=== PATIENT | female | born 1980 | race Caucasian/White ===

== ENCOUNTER 2021-03-19 14:08 | Outpatient (REF) | payer OTHER, SELFPAY | END 2021-03-19 14:09 | disposition home or self-care (01) | LOC: HO.LNP 14:08 | PROVIDERS: Visit Provider Hospitalist | DX: B34.9 Viral infection, unspecified (principal); Z20.822 Contact with and (suspected) exposure to COVID-19 | CPT/HCPCS: U0003; U0005 ==

== ENCOUNTER 2021-08-06 10:20 | Outpatient (REF) | payer OTHER, SELFPAY ==
[2021-08-06 11:08] LABS: MANUAL DIFF FLAG NO
[2021-08-06 11:21] LABS: Basophils Percent Auto 0.2 % (0-2); Eosinophils Absolute Auto 0.1 X10*3/uL (0.0-0.4); Eosinophils Percent Auto 2.3 % (0-4); Hematocrit 36.4 % (37.0-47.0); Hemoglobin 12.6 g/dl (12.0-16.0); Imm Gran Abs Auto 0.01 X10*3/uL (0.00-0.03); Imm Gran Pct Auto 0.2 % (0.0-0.4); Lymphocytes Absolute Auto 1.3 X10*3/uL (1.2-4.9); Lymphocytes Percent Auto 28.6 % (20-40); Mean Corpuscular HGB Conc 34.6 g/dl (31.0-35.0); Mean Corpuscular Hemoglobin 30.7 pg (27.0-33.0); Mean Corpuscular Volume 88.6 fL (80.0-98.0); Mean Platelet Volume 9.8 fL (9.4-12.3); Monocytes Absolute Auto 0.3 X10*3/uL (0.1-1.2); Monocytes Percent Auto 6.6 % (2-11); Neutrophils Absolute Auto 2.7 x10*3/uL (2.0-8.3); Neutrophils Percent Auto 62.1 % (45-73); Platelet Count 192 X10*3/uL (160-400); Red Blood Count 4.11 X10*6/uL (4.20-5.50); Red Cell Distribution Width 12.2 % (11.0-16.0); White Blood Count 4.4 X10*3/uL (4.8-10.8)
[2021-08-06 11:43] LABS: Alanine Aminotransferase 34 U/L (0-31); Anion Gap 11 (12-20); Aspartate Amino Transferase 27 U/L (5-31); Blood Urea Nitrogen 11 mg/dL (9-16); Calcium 9.9 mg/dL (8.4-10.2); Carbon Dioxide 28 mmol/L (22-29); Chloride 107 mmol/L (96-108); Cholesterol 134 mg/dL; Estimated Glomerular Filt Rate > 60; Glucose Fasting 100 mg/dL (60-99); HDL Cholesterol 69 mg/dL; LDL Cholesterol Calculated 44 mg/dl; Potassium 3.8 mmol/L (3.3-5.1); Sodium 142 mmol/L (135-145); Triglycerides 109 mg/dL
== END 2021-08-06 10:21 | disposition home or self-care (01) ==
LOC: HO.HMGCLDS 10:20
PROVIDERS: PCP Internal Medicine; Visit Provider Internal Medicine
DX: Z00.01 Encounter for general adult medical examination with abnormal findings (principal); I10 Essential (primary) hypertension; E78.5 Hyperlipidemia, unspecified; Z86.711 Personal history of pulmonary embolism
CPT/HCPCS: 36415; 80048; 80061; 84450; 84460; 85025

== ENCOUNTER 2021-09-01 15:12 | Outpatient (REF) | payer OTHER, SELFPAY | END 2021-09-01 15:13 | disposition home or self-care (01) | LOC: HO.LAB 15:12 | PROVIDERS: Visit Provider Hospitalist | DX: Z20.822 Contact with and (suspected) exposure to COVID-19 (principal); R68.83 Chills (without fever) | CPT/HCPCS: U0003; U0005 ==

== ENCOUNTER → 2021-10-27 14:31 | Outpatient (BNVA) | payer OTHER, SELFPAY | PROVIDERS: PCP Hospitalist; Visit Provider Surgery Vascular Surgery | DX: I83.11 Varicose veins of right lower extremity with inflammation (principal) | CPT/HCPCS: 99202 ==

== ENCOUNTER 2021-11-25 10:35 | Outpatient (REF) | payer OTHER, SELFPAY ==
--- NOTE | ~2021-11-25 | US_ITS ---
EXAMINATION: US LOWER EXTREMITY VENOUS (REFLUX EXAM), BILATERAL CLINICAL INDICATION: This is a 41-year-old female with venous insufficiency and varicose veins. COMPARISON: None. TECHNIQUE: Color flow triplex imaging and compression Doppler was performed to evaluate both the deep and the superficial systems bilaterally. To evaluate the superficial system, the examination was performed in the upright position. Color-flow Doppler ultrasound and compression ultrasound were utilized. In addition, maneuvers were utilized to demonstrate reflux. FINDINGS: 1. DEEP VENOUS ULTRASOUND OF THE RIGHT LOWER EXTREMITY: Common Femoral Vein: Compressible, normal respiratory variation and augmented flow. Femoral vein: There are chronic fibrinous changes with in the vein consistent with previous deep vein thrombosis and recanalization. There may be minimal reflux present. Popliteal Vein: There are chronic fibrinous changes with in the vein consistent with previous deep vein thrombosis and recanalization. There may be minimal reflux present. Deep Reflux: There are chronic fibrinous changes with in the femoral and popliteal veins consistent with previous deep vein thrombosis and recanalization. There may be minimal reflux present. There is no evidence of a Pino's cyst. 2. SUPERFICIAL ULTRASOUND WITH DOPPLER OF RIGHT LOWER EXTREMITY: GREAT SAPHENOUS VEIN: Saphenofemoral Junction: 0.8 cm. There is no reflux. Mid Thigh: 0.2 cm Above Knee: 0.2 cm Below Knee: 0.3 cm Mid Calf: 0.3 cm Ankle: 0.2 cm GSV REFLUX: No evidence of reflux. DUPLICATED GREAT SAPHENOUS VEIN: None SMALL SAPHENOUS VEIN: Proximal: 0.2 cm Distal: 0.2 cm SSV REFLUX: No evidence of reflux. VEIN OF GIACOMINI: None Imaged. PERFORATORS: None Imaged VARICOSITIES: There is a 0.3 cm varicose vein at the knee without reflux 3. DEEP VENOUS ULTRASOUND OF THE LEFT LOWER EXTREMITY: Common Femoral Vein: Compressible, normal respiratory variation and augmented flow. Femoral Vein: Compressible, normal color flow and augmentation. Popliteal Vein: Compressible, normal augmentation. Deep Reflux: There is no evidence of reflux in the deep system in either the common femoral vein or the popliteal vein. There is no evidence of a Pino's cyst. 4. SUPERFICIAL ULTRASOUND WITH DOPPLER OF LEFT LOWER EXTREMITY: GREAT SAPHENOUS VEIN: Saphenofemoral Junction: 0.9 cm. There is no reflux. Mid Thigh: 0.3 cm Above Knee: 0.3 cm Below Knee: 0.3 cm Mid Calf: 0.2 cm Ankle: 0.2 cm GSV REFLUX: No evidence of reflux. DUPLICATED GREAT SAPHENOUS VEIN: None SMALL SAPHENOUS VEIN: Proximal: 0.2 cm Distal: 0.2 cm SSV REFLUX: No evidence of reflux. VEIN OF GIACOMINI: None Imaged. PERFORATORS: None Imaged VARICOSITIES: None Imaged US/US venous duplex LE BI IMPRESSION: 1. There are patent bilateral great saphenous veins and small saphenous veins, respectively, without evidence of reflux. 2. There is some fibrinous changes in the right femoral vein and popliteal vein, respectively which may represent previous deep vein thrombosis.
== END 2021-11-25 10:36 | disposition home or self-care (01) ==
LOC: HO.US 10:35
PROVIDERS: Visit Provider Surgery Vascular Surgery
DX: I83.11 Varicose veins of right lower extremity with inflammation (principal)
CPT/HCPCS: 93970

== ENCOUNTER → 2021-12-29 14:50 | Outpatient (BNVA) | payer OTHER, SELFPAY | PROVIDERS: PCP Hospitalist; Visit Provider Surgery Vascular Surgery | DX: I83.11 Varicose veins of right lower extremity with inflammation (principal) | CPT/HCPCS: 99212 ==

== ENCOUNTER 2022-12-31 11:38 | Outpatient (REF) | payer OTHER, SELFPAY ==
[2022-12-31 14:19] LABS: Mean Corpuscular HGB Conc 34.2 g/dl (31.0-35.0); PLT CLUMP 1
[2022-12-31 14:21] LABS: Hematocrit 36.6 % (37.0-47.0); Hemoglobin 12.5 g/dl (12.0-16.0); Mean Platelet Volume 10.9 fL (9.4-12.3); Red Blood Count 4.16 X10*6/uL (4.20-5.50); Red Cell Distribution Width 12.1 % (11.0-16.0)
[2022-12-31 14:35] LABS: Platelet Count 122 X10*3/uL (160-400)
[2022-12-31 14:48] LABS: TSH reflex Free T4 1.45 uIU/mL (0.32-4.0)
[2022-12-31 14:54] LABS: Alanine Aminotransferase 25 U/L (0-31); Albumin Level 4.4 g/dL (3.5-5.0); Alkaline Phosphatase 19 U/L (39-117); Anion Gap 11 (12-20); Aspartate Amino Transferase 22 U/L (5-31); Blood Urea Nitrogen 16 mg/dL (9-16); Calcium 9.7 mg/dL (8.4-10.2); Carbon Dioxide 26 mmol/L (22-29); Chloride 108 mmol/L (96-108); Estimated Glomerular Filt Rate > 60; Glucose Fasting 55 mg/dL (60-99); Potassium 4.1 mmol/L (3.3-5.1); Sodium 141 mmol/L (135-145)
== END 2022-12-31 11:39 | disposition home or self-care (01) ==
LOC: HO.WFDLDS 11:38
PROVIDERS: Visit Provider Nurse Practitioner Family
DX: F41.9 Anxiety disorder, unspecified (principal)
CPT/HCPCS: 36415; 80053; 84443; 85027

== ENCOUNTER 2023-01-04 12:34 | Outpatient (REF) | payer OTHER, SELFPAY ==
[2023-01-04 14:16] LABS: Hematocrit 36.1 % (37.0-47.0); Hemoglobin 12.8 g/dl (12.0-16.0); Mean Corpuscular HGB Conc 35.5 g/dl (31.0-35.0); Mean Corpuscular Hemoglobin 30.9 pg (27.0-33.0); Mean Corpuscular Volume 87.2 fL (80.0-98.0); Mean Platelet Volume 10.3 fL (9.4-12.3); Platelet Count 171 X10*3/uL (160-400); Red Blood Count 4.14 X10*6/uL (4.20-5.50); Red Cell Distribution Width 11.9 % (11.0-16.0); White Blood Count 5.2 X10*3/uL (4.8-10.8)
[2023-01-04 14:43] LABS: Alkaline Phosphatase 21 U/L (39-117)
[2023-01-04 15:48] LABS: Vitamin B12 1447 pg/mL (200-900); Vitamin D 25-OH Total 48.2 ng/mL (>30)
== END 2023-01-04 12:35 | disposition home or self-care (01) ==
LOC: HO.WFDLDS 12:34
PROVIDERS: Visit Provider Nurse Practitioner Family
DX: D69.6 Thrombocytopenia, unspecified (principal); R74.8 Abnormal levels of other serum enzymes; E83.39 Other disorders of phosphorus metabolism
CPT/HCPCS: 36415; 82306; 82607; 84075; 85027

== ENCOUNTER 2023-02-16 15:49 | Outpatient (AMB) | payer OTHER, SELFPAY ==
[2023-02-16 16:00] VITALS: BP 124/68; PULSE 57; RESP 12; TEMP 36.2; O2SAT 99; BMI 20.4
--- NOTE | 2023-02-16 16:00 | MHC.PC.OV ---
Vital Signs 02/16/23 16:00 Height 5 ft 10 in Weight 142 lb 4 oz BMI 20.4 BP 124/68 Blood Pressure Location Rt brachial Position Sitting Respiration 12 Pulse 57 Pulse Source Pulse Oximeter Temp 97.2 F Temp Source Temporal Artery Scan Pulse Oximetry (%) 99 Oxygen Delivery Method Room Air Intake Visit Reasons: medication f/u, menstrual concern Intake Note: Patient would like a referral to Dermatology due patient having family history of skin cancer, and a referral to Ear, Nose, Throat due to her having because of mucus being built up ever since she moved here and started gathering in her throat to the point she had complications swallowing. Patient states that she was told that all her symptoms with her emotion, feelings, anxiousness and insomnia all pointed to PMDD. Phone Operator Required: No Accompanied by: Self / Same As Patient Allergies No Known Allergies Allergy (Verified 02/16/23 16:25) Medication List - Last Reconciled 02/16/23 by Magdaleno Sears CNP amlodipine 10 mg PO DAILY aspirin 81 mg PO DAILY atorvastatin 20 mg PO DAILY azelastine 1 spray intranasal BID metoprolol tartrate 25 mg PO BID Tobacco use date assessed: 12/24/22 Dental Screening Dental Screen Date: 02/16/23 Did you have a dental visit in the last 12 months?: No Did you have a dental problem in the last 6 months where you did not have access to dental care?: No Was dental information given to patient?: Yes HPI HPI Comments History of Present Illness Details 42-year-old female presents with complaints of continued anxiety and crying during her menstrual cycles. She reports associated insomnia. She was seen for similar complaints and was referred to gynecology. She was also instructed to exercise routinely. She notes she followed up with her director of events who referred her to a therapist. Her therapist thinks she has PMDD and would connect her to a psychiatrist. She sees her therapist weekly or biweekly. She requests as needed medications for anxiety. She notes that she drinking alcohol and smoking cigarette over a month and half ago. No acute symptoms today. She requests dermatology referral d/t family h/o skin cancer and ENT referral due to excessive mucus build up in her throat, making it difficult to swallow. [facility] Medical History Chronic seasonal allergic rhinitis Dyslipidemia Essential hypertension History of deep venous thrombosis (DVT) of distal vein of right lower extremity History of pulmonary embolus (PE) Numerous moles Peripheral vascular disease Peripheral vascular disease Postphlebitic leg ulcer Rash Surgical History History of hernia repair History of wisdom tooth extraction Hx of valvuloplasty Family History Father Hypertension Rheumatoid arthritis Mother Hypertension Diabetes Maternal Grandmother Hypertension Diabetes Mental health disorder Paternal Grandmother Mental health disorder Social History Housing: House Patient Tobacco Use Status: Former Tobacco user (4 years ) Years Smoked: 14 years e-Cigarette/Vaping Use: Former Use (here and there.) Second Hand Smoke Exposure: No service: No 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 1. Little interest or pleasure in doing things: not at all 2. Feeling down, depressed, or hopeless: not at all 3. Trouble falling or staying asleep, or sleeping too much: not at all 4. Feeling tired or having little energy: not at all 5. Poor appetite or overeating: not at all 6. Feeling bad about yourself - or that you are a failure or have let yourself or your family down: not at all 7. Trouble concentrating on things, such as reading the newspaper or watching television: not at all 8. Moving or speaking so slowly that other people could have noticed. Or the opposite - being so fidgety or restless that you have been moving around a lot more than usual: not at all 9. Thoughts that you would be better off or of hurting yourself in some way: not at all Total score: 0 Depression Screening Interpretation: Negative Source: Developed by Drs. Tee Aden, Perla Miranda, Haja Charles and colleagues, with an educational july from [employer]. Thrive Questionnaire Date Thrive assessed: 02/16/23 I am a: Patient What is your living situation today?: I have a steady place to live Within the past 12 months, did the food you bought not last and you didn't have the money to get more?: Never true Within the past 12 months, did you worry whether your food would run out before you got money to buy more?: Never true Do you have trouble paying for medicines?: No Do you have trouble getting transportation to medical appointments?: No Do you have trouble paying your heating and electricity bill?: No Do you have trouble taking care of your child, family member or friend?: No Do you have trouble with day-to-day activities such as bathing, preparing meals, shopping, managing finances, etc.?: No Are you currently unemployed and looking for a job?: No Are you interested in more education?: No Please select the resources that you would like help with: None Currently or been in a relationship where the following occur: no concerns reported MOOKIE-7 AMB Questionnaire MOOKIE-7 Date MOOKIE - 7 assessed: 02/16/23 Feeling nervous, anxious, or on edge: 1 = Several days Not being able to stop or control worryin = Not at all Worrying too much about different things: 0 = Not at all Trouble relaxin = Not at all Being so restless that it is hard to sit still: 0 = Not at all Becoming easily annoyed or irritable: 0 = Not at all Feeling afraid as if something awful might happen: 0 = Not at all Total MOOKIE-7 score (0-4 normal; 5-9 mild; 10-14 moderate; 15-21 severe): 1 Source: Developed by Drs. Tee Aden, Perla Miranda, Haja Charles and colleagues, with an educational july from [employer]. Review of Systems Const Details: Const Denies chills, Denies fatigue, Denies fever(s), Denies headache(s) and Denies weakness ENT Denies dizziness and Denies headache(s) Card Denies chest pain, Denies lightheadedness, Denies dyspnea and Denies other (Palpitations) Resp Denies cough, Denies dyspnea, Denies wheezing and Denies other ( shortness of breath) GI Denies abdominal pain, Denies melena, Denies hematochezia, Denies change in bowel habits, Denies dyspepsia and Denies nausea Denies hematuria and Denies dysuria Musc Denies abnormal gait, Denies myalgias, Denies arthralgias, Denies numbness and Denies tingling Skin/Breast Denies rash, Denies unusual bruising and Denies wounds Neuro Denies abnormal gait, Denies dizziness, Denies headache(s), Denies memory loss, Denies numbness, Denies Sensory deficit (Neuro), Denies tingling and Denies weakness Psych Denies anxiety and Denies depression, Denies memory loss Endo Denies fatigue Aller/Immun Denies wheezing Physical exam (Primary Care) Vital Signs: Last Vital Signs Temp 97.2 F 02/16/23 16:00 Pulse 57 02/16/23 16:00 Resp 12 02/16/23 16:00 BP 124/68 02/16/23 16:00 Pulse Ox 99 02/16/23 16:00 Oxygen Delivery Method Room Air 02/16/23 16:00 BMI result Body Mass Index 20.4 Tobacco/Smoking Status: Tobacco use Status Tobacco use date assessed 12/24/22 02/16/23 16:06 Patient Tobacco Use Status Former Tobacco user (4 years 02/16/23 16:06 ) e-Cigarette/Vaping Use Former Use (here and there.) 02/16/23 16:20 Depression Screening Interpretation: Negative Thrive Assessment: Date of Thrive Assessment Date Thrive assessed 02/16/23 02/16/23 16:20 Currently or been in a relationship where the following occur: no concerns reported Const Other: General: no acute distress and well developed Nutritional Appearance: well nourished Orientation/consciousness: patient oriented x3 HENMT Head: Yes normocephalic and Yes atraumatic Eyes General: appearance normal, both eyes and all related structures Pupils: Equal, round and reactive pupils present EOM: EOMs intact bilaterally Resp Effort & Inspection: normal respiratory effort Auscultation: clear to auscultation bilaterally Cardio Rate: regular rate Rhythm: regular rhythm Heart sounds: S1 normal heart sound present, S2 normal heart sound present, no gallops, no murmurs and no rubs GI Palpation (GI): No Abdominal aortic bruit present, Soft to palpation, nontender, No hepatosplenomegaly present and No Rebound tenderness present Auscultation: normal bowel sounds General: Yes no CVA tenderness Back/Spine/Pelvis Back: no CVA tenderness Cervical Spine: cervical ROM normal and No Cervical spine tenderness Thoracic/Lumbar Spine: thoraco-lumbar ROM normal, No pain with thoraco-lumbar ROM, No thoracic spinal tenderness and No lumbar spinal tenderness Extrem General: Yes normal to inspection, No edema and No calf tenderness Skin General: warm and dry. Normal skin color. Normal skin turgor Lesions: no lesions Rashes: no rashes Trauma: no lacerations or abrasions Wounds: no wounds Nails: normal Neuro General: patient oriented x3, gait normal and no focal neuro deficit Cranial nerves: Yes Equal, round and reactive pupils present Cognition (Neuro): normal cognition Gait exam (Neuro): Normal gait present Sensory Exam: No Sensory deficit (Neuro) Psych Appearance: grossly normal Affect: normal affect Attitude: cooperative Thought process: Normal thought process present Assessment and Plan Assessment & Plan (1) Anxiety: Code(s): F41.9 - Anxiety disorder, unspecified Plan: She notes that she sees a therapist weekly/biweekly and a therapist thinks she has PMDD; the plan is to get established with a psychiatrist. She requests an anxiolytic as needed PHQ-9 and MOOKIE-7 scores are normal Hydroxyzine ordered. Take as prescribed Healthy diet and routine exercise encouraged Continue to follow-up with therapist and gynecology as planned Follow-up with PCP in 2 months or return sooner with worsening or new symptoms Verbalized understanding and agreed with treatment plan. (2) Essential hypertension: Code(s): I10 - Essential (primary) hypertension Plan: Blood pressure is controlled, 124/68, within goal of less than 140/90 Continue to take amlodipine and metoprolol as prescribed Low-sodium diet encouraged Follow-up with PCP in 2 months or return sooner with symptoms or concerns Verbalized understanding and agreed with treatment plan. (3) Family history of skin cancer: Code(s): Z80.8 - Family history of malignant neoplasm of other organs or systems Plan: She requests dermatology referral d/t family h/o skin cancer and ENT referral due to excessive mucus build up in her throat, making it difficult to swallow. Referred to dermatology and ENT Follow-up with symptoms or concerns Verbalized understanding and agreed with treatment plan. (4) Dysphagia: Code(s): R13.10 - Dysphagia, unspecified Plan: As above Orders: Referrals Dermatology Referral Z80.8 - Family history of malignant neoplasm of other organs or systems Ear/Nose/Throat Referral R13.10 - Dysphagia, unspecified Medications: New hydroxyzine HCl 25 mg PO BID PRN 60 tabs 1RF anxiety 30 days Coding Level of Care Code Est Pt Level 3 (82808) Diagnoses Anxiety F41.9 Essential hypertension I10 Family history of skin cancer Z80.8 Dysphagia R13.10 Time Spent (min) 25
== END 2023-02-16 16:52 | disposition home or self-care (01) ==
PROVIDERS: PCP Hospitalist; Visit Provider Nurse Practitioner Family
DX: F41.9 Anxiety disorder, unspecified (principal); I10 Essential (primary) hypertension; Z80.8 Family history of malignant neoplasm of other organs or systems; R13.10 Dysphagia, unspecified
CPT/HCPCS: 99213

== ENCOUNTER 2024-01-18 15:30 | Outpatient (AMB) | payer OTHER, SELFPAY ==
--- NOTE | 2024-01-18 15:49 | A.OFFPC_ITS ---
Vital Signs 01/18/24 15:57 Weight 168 lb 8 oz BP 120/70 Blood Pressure Location Lt brachial Position Sitting Pulse 64 Pulse Source Pulse Oximeter Temp 98.6 F Temp Source Oral Pulse Oximetry (%) 986 H Oxygen Delivery Method Room Air Intake Visit Reasons: Establish Care Intake Note: patient here for follow up. Heating Engineer Required: No Is last menstrual period known: Yes Last menstrual period: 12/31/23 Allergies No Known Allergies Allergy (Verified 01/18/24 15:56) Medication List - Last Reconciled 01/18/24 by Gaby Callaway PA-C amlodipine 10 mg PO DAILY aspirin 81 mg PO DAILY atorvastatin 20 mg PO DAILY azelastine 1 spray intranasal BID hydroxyzine HCl 25 mg PO BID PRN 30 days metoprolol tartrate 25 mg PO BID Tobacco use date assessed: 12/24/22 Dental Screening Dental Screen Date: 02/16/23 HPI Establish Care HPI Details Patient is a 43-year-old female with a significant past medical of hyperlipidemia, hypertension, hx of right dvt and anxiety presenting today to transfer care internally and discuss her anxiety. CV: Blood pressure today in the office is 120/70. She is on amlodipine 10 mg and metoprolol 25 mg twice a day. She does not take her metoprolol frequently or in the evening. Her cholesterol is controlled with atorvastatin 20 mg. She has had high blood pressure for at least 10 years. Vasc: hx of the right leg dvt after an injury in 2014. 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 She states she did have a full workup from hematology. No need for anticoagulation. Psych: Well managed with hydroxyzine prn. Uses it rarely. 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[employer] [facility] Medical History (Updated 01/18/24 @ 16:18 by Gaby Callaway PA-C) Anxiety Low serum alkaline phosphatase Thrombocytopenia Peripheral vascular disease Peripheral vascular disease Chronic seasonal allergic rhinitis Numerous moles Rash History of pulmonary embolus (PE) Postphlebitic leg ulcer History of deep venous thrombosis (DVT) of distal vein of right lower extremity Dyslipidemia Essential hypertension Surgical History History of hernia repair History of wisdom tooth extraction Hx of valvuloplasty Family History Father Hypertension Rheumatoid arthritis Mother Hypertension Diabetes Maternal Grandmother Hypertension Diabetes Mental health disorder Paternal Grandmother Mental health disorder Social History Housing: House Patient Tobacco Use Status: Former Tobacco user (4 years ) Years Smoked: 14 years e-Cigarette/Vaping Use: Former Use (here and there.) Second Hand Smoke Exposure: No service: No 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 1. Little interest or pleasure in doing things: not at all 2. Feeling down, depressed, or hopeless: not at all 3. Trouble falling or staying asleep, or sleeping too much: not at all 4. Feeling tired or having little energy: not at all 5. Poor appetite or overeating: not at all 6. Feeling bad about yourself - or that you are a failure or have let yourself or your family down: not at all 7. Trouble concentrating on things, such as reading the newspaper or watching television: not at all 8. Moving or speaking so slowly that other people could have noticed. Or the opposite - being so fidgety or restless that you have been moving around a lot more than usual: not at all 9. Thoughts that you would be better off or of hurting yourself in some way: not at all Total score: 0 Depression Screening Interpretation: Negative Depression Screening Done: Yes 55655 - PHQ-9 Billing: Yes Source: Developed by Drs. Tee Aden, Perla Miranda, Haja Charles and colleagues, with an educational july from [employer]. Thrive Questionnaire Date Thrive assessed: 02/16/23 MOOKIE-7 AMB Questionnaire MOOKIE-7 Date MOOKIE - 7 assessed: 02/16/23 Feeling nervous, anxious, or on edge: 0 = Not at all Not being able to stop or control worryin = Not at all Worrying too much about different things: 0 = Not at all Trouble relaxin = Not at all Being so restless that it is hard to sit still: 0 = Not at all Becoming easily annoyed or irritable: 0 = Not at all Feeling afraid as if something awful might happen: 0 = Not at all Total MOOKIE-7 score (0-4 normal; 5-9 mild; 10-14 moderate; 15-21 severe): 0 Source: Developed by Drs. Tee Aden, Perla Miranda, Haja Charles and colleagues, with an educational july from [employer]. MOOKIE-7 Assessment Billing MOOKIE-7 Assessment Tool: MOOKIE-7 Assessment [id number] Physical exam (Primary Care) Vital Signs: Last Vital Signs Temp 98.6 F 01/18/24 15:57 Pulse 64 01/18/24 15:57 BP 120/70 01/18/24 15:57 Pulse Ox 986 H 01/18/24 15:57 Oxygen Delivery Method Room Air 01/18/24 15:57 Tobacco/Smoking Status: Tobacco use Status Tobacco use date assessed 12/24/22 01/18/24 15:51 Patient Tobacco Use Status Former Tobacco user (4 years 01/18/24 15:51 ) e-Cigarette/Vaping Use Former Use (here and there.) 01/18/24 15:51 PHQ-9: PHQ-9 Score PHQ-9: Total score 0 01/18/24 16:03 Depression Screening Interpretation: Negative Thrive Assessment: Date of Thrive Assessment Date Thrive assessed 02/16/23 01/18/24 15:51 Const Orientation/consciousness: patient oriented x3 HENMT Ears: hearing grossly normal bilaterally Neck Thyroid: Thyroid normal Lymphatic: no lymphadenopathy noted Resp Auscultation: clear to auscultation bilaterally Cardio Rate: regular rate Rhythm: regular rhythm Heart sounds: S1 normal heart sound present and S2 normal heart sound present GI Inspection: Yes normal to inspection Palpation (GI): Soft to palpation and Other GI palpation findings present (nontender, no cva tenderness) Auscultation: normoactive bowel sounds Rectal Exam - Female: deferred Skin General skin exam: no rashes or lesions noted Neuro General: patient oriented x3, gait normal and no focal motor deficits Assessment and Plan Assessment & Plan (1) Essential hypertension: Code(s): I10 - Essential (primary) hypertension Plan: will d/c metoprolol. will monitor bps at home and continue norvasc 10 mg. follow up in 4-6 months or sooner prn (2) Dyslipidemia: Code(s): E78.5 - Hyperlipidemia, unspecified Plan: continue lipitor. lipids and lfts ordered (3) Peripheral vascular disease: Comment: Status post stent to right common iliac vein Code(s): I73.9 - Peripheral vascular disease, unspecified Plan: has followed with Dr. Champion and recommendation of continued compression (4) Varicose veins of right lower extremity with inflammation: Code(s): I83.11 - Varicose veins of right lower extremity with inflammation Plan: compression stocking ordered (5) Generalized anxiety disorder with panic attacks: Code(s): F41.1 - Generalized anxiety disorder; F41.0 - Panic disorder [episodic paroxysmal anxiety] Plan: well controlled Orders: Orders Lipid Panel Today E78.5 - Hyperlipidemia, unspecified, F41.0 - Panic disorder [episodic paroxysmal anxiety], F41.1 - Generalized anxiety disorder, I10 - Essential (primary) hypertension, I73.9 - Peripheral vascular disease, unspecified, I83.11 - Varicose veins of right lower extremity with inflammation Comprehensive [place]. Panel Fast Today E78.5 - Hyperlipidemia, unspecified, F41.0 - Panic disorder [episodic paroxysmal anxiety], F41.1 - Generalized anxiety disorder, I10 - Essential (primary) hypertension, I73.9 - Peripheral vascular disease, unspecified, I83.11 - Varicose veins of right lower extremity with inflammation Complete Blood Count Auto Diff Today E78.5 - Hyperlipidemia, unspecified, F41.0 - Panic disorder [episodic paroxysmal anxiety], F41.1 - Generalized anxiety disorder, I10 - Essential (primary) hypertension, I73.9 - Peripheral vascular disease, unspecified, I83.11 - Varicose veins of right lower extremity with inflammation TSH reflex Free T4 Today E78.5 - Hyperlipidemia, unspecified, F41.0 - Panic disorder [episodic paroxysmal anxiety], F41.1 - Generalized anxiety disorder, I10 - Essential (primary) hypertension, I73.9 - Peripheral vascular disease, unspecified, I83.11 - Varicose veins of right lower extremity with inflammation MM screening mammo BI Today Z12.31 - Encounter for screening mammogram for malignant neoplasm of breast Medications: New comp.stocking,knee,long,medium Use daily As directed for right leg 2 ea 0RF I73.9 - Peripheral vascular disease, unspecified, I83.11 - Varicose veins of right lower extremity with inflammation Discontinued metoprolol tartrate Discontinued Reason: Doctor's Order 25 mg PO BID 180 tabs 3RF Coding Level of Care Code Est Pt Level 4 (25396) Complex EM visit Add On G2211 Diagnoses Essential hypertension I10 Dyslipidemia E78.5 Peripheral vascular disease I73.9 Varicose veins of right lower extremity with inflammation I83.11 Generalized anxiety disorder with panic attacks F41.1; F41.0 Additional Codes MOOKIE-7 Assessment Billing - MOOKIE-7 Assessment Tool: MOOKIE-7 Assessment [id number] ([id number])
[2024-01-18 15:57] VITALS: BP 120/70; PULSE 64; TEMP 37; O2SAT 986
== END 2024-01-18 16:42 | disposition home or self-care (01) ==
PROVIDERS: PCP Physician Assistant; Visit Provider Physician Assistant
DX: I10 Essential (primary) hypertension (principal); E78.5 Hyperlipidemia, unspecified; I73.9 Peripheral vascular disease, unspecified; I83.11 Varicose veins of right lower extremity with inflammation; F41.1 Generalized anxiety disorder; F41.0 Panic disorder [episodic paroxysmal anxiety]
CPT/HCPCS: 99214; G2211

== ENCOUNTER → 2024-02-28 13:45 | Outpatient (BNV) | payer OTHER, SELFPAY | PROVIDERS: PCP Physician Assistant; Visit Provider Radiology Diagnostic Radiology | DX: Z12.31 Encounter for screening mammogram for malignant neoplasm of breast (principal) | CPT/HCPCS: 77063; 77067 ==

== ENCOUNTER 2024-02-28 13:49 | Outpatient (REF) | payer OTHER, SELFPAY ==
--- NOTE | ~2024-02-28 | MM_ITS ---
EXAMINATION: MM SCREENING DIGITAL BREAST TOMOSYNTHESIS, BILATERAL CLINICAL INFORMATION: Screening. Asymptomatic. COMPARISON: Mammography: This is a baseline mammogram. TECHNIQUE: Digital breast tomosynthesis is performed in both the craniocaudal and mediolateral oblique views along with computer-aided detection (CAD). Synthesized 2D images are generated from the tomosynthesis. FINDINGS: The breasts are heterogeneously dense, which may obscure small masses (ACR BI-RADS breast composition Category c). There are no significant masses, abnormal calcifications, or other abnormalities. MM/MM tomosynthesis screening BI IMPRESSION: No mammographic evidence of malignancy. ASSESSMENT: BI-RADS BI-RADS 1 - Negative RECOMMENDATION: Routine annual mammography screening. 1 year F/U This examination should not preclude the clinical evaluation of a suspicious palpable abnormality. This patient's information was entered into a reminder system with a target due date for their next mammogram.
== END 2024-02-28 13:50 | disposition home or self-care (01) ==
LOC: HO.MAMMO 13:49
PROVIDERS: PCP Physician Assistant; Visit Provider Physician Assistant
DX: Z12.31 Encounter for screening mammogram for malignant neoplasm of breast (principal)
CPT/HCPCS: 77063; 77067

== ENCOUNTER 2024-04-04 14:10 | Outpatient (AMB) | payer OTHER, SELFPAY ==
--- NOTE | 2024-04-04 13:48 | A.OFFPC_ITS ---
Intake Visit Reasons: neg covid/ sore throat/mucus Intake Note: Woke up with sore throat this morning and congestion. Her mother has covid. Patient was exposed about 3 days ago. Allergies No Known Allergies Allergy (Verified 04/04/24 13:50) Tobacco use date assessed: 12/24/22 Dental Screening Dental Screen Date: 02/16/23 HPI neg covid/ sore throat/mucus HPI Details Pt is a 44 y/o female who presents today with complaints of nasal congestion, postnasal drip and some sinus congestion. Her symptoms started today. She denies any fever, chills, cough, shortness a breath, nausea, vomiting or diarrhea. Body aches. Her mother recently tested positive for COVID but the patient states that she took a COVID test was negative. Her symptoms feel very mild. She is isolating and wearing a mask. [facility] Medical History (Updated 01/18/24 @ 16:18 by Gaby Callaway PA-C) Anxiety Low serum alkaline phosphatase Thrombocytopenia Peripheral vascular disease Peripheral vascular disease Chronic seasonal allergic rhinitis Numerous moles Rash History of pulmonary embolus (PE) Postphlebitic leg ulcer History of deep venous thrombosis (DVT) of distal vein of right lower extremity Dyslipidemia Essential hypertension Surgical History History of hernia repair History of wisdom tooth extraction Hx of valvuloplasty Family History Father Hypertension Rheumatoid arthritis Mother Hypertension Diabetes Maternal Grandmother Hypertension Diabetes Mental health disorder Paternal Grandmother Mental health disorder Social History Housing: House Patient Tobacco Use Status: Former Tobacco user (4 years ) Years Smoked: 14 years e-Cigarette/Vaping Use: Former Use (here and there.) Second Hand Smoke Exposure: No service: No 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 Tee Aden, Perla Miranda, Haja Charles and colleagues, with an educational july from [employer]. Physical exam (Primary Care) Tobacco/Smoking Status: Tobacco use Status Tobacco use date assessed 12/24/22 04/04/24 13:51 Patient Tobacco Use Status Former Tobacco user (4 years 04/04/24 13:51 ) e-Cigarette/Vaping Use Former Use (here and there.) 04/04/24 13:51 Thrive Assessment: Date of Thrive Assessment Date Thrive assessed 02/16/23 04/04/24 13:51 Telehealth Telehealth Telehealth Platform: Telephone Location of provider rendering services: practice address Location of patient: address on file Patient Identification confirmed using: Name, : Yes Telehealth method: voice only Patient verbally consented to treatment: Yes Patient verbally consented to billing insurance company: Yes Patient informed of any privacy concerns related to visit: Yes Minutes spent on Phone/Video with Pt.: 15 Assessment and Plan Assessment & Plan (1) Viral URI: Code(s): J06.9 - Acute upper respiratory infection, unspecified Plan: Patient reports testing at home and it was negative for COVID. We did discuss s upportive measures such as OTC analgesics, rest, hydration, and current guidelines. She will let me know if anything changes. She will continue to test for COVID. Patient understands and agrees with the plan. Coding Level of Care Code Tele Est Pt Level 2 (29960) Diagnoses Viral URI J06.9
== END 2024-04-04 14:41 | disposition home or self-care (01) ==
LOC: HO.HMGFM 14:10
PROVIDERS: PCP Physician Assistant; Visit Provider Physician Assistant
DX: J06.9 Acute upper respiratory infection, unspecified (principal)
CPT/HCPCS: 99212

== ENCOUNTER 2024-07-12 08:01 | Outpatient (AMB) | payer OTHER, SELFPAY ==
--- NOTE | 2024-07-12 08:08 | MHC.PC.OV ---
Vital Signs 07/12/24 08:10 Height 5 ft 10 in Weight 163 lb 4 oz BMI 23.4 BP 134/74 Blood Pressure Location Rt brachial Position Sitting Pulse 69 Pulse Source Pulse Oximeter Pulse Oximetry (%) 99 Oxygen Delivery Method Room Air Intake Visit Reasons: PE with lab fu Intake Note: Physical. Needs refill on Azelastine. Wants to know if its ok for to continue using aspirin. Scrummaster Required: No Allergies No Known Allergies Allergy (Verified 07/12/24 08:08) Medication List - Last Reconciled 07/12/24 by Gaby Callaway PA-C amlodipine 10 mg PO DAILY aspirin 81 mg PO DAILY atorvastatin 20 mg PO DAILY azelastine 1 spray intranasal BID comp.stocking,knee,long,medium Use daily As directed for right leg hydroxyzine HCl 25 mg PO BID PRN 30 days Tobacco use date assessed: 07/12/24 Dental Screening Dental Screen Date: 02/16/23 HPI PE with lab fu HPI Details Patient is a 44-year-old female with a significant past medical of hyperlipidemia, hypertension, hx of right dvt and anxiety presenting today for a cpe. Breast: she does report left breast tenderness in the 6 oclock position x 2 months. She states it is persistent. No masses or nipple drainage. utd on mammo. does not see [facility] regularly. CV: Blood pressure today in the office is 134/74. She is on amlodipine 10 mg. Her cholesterol is controlled with atorvastatin 20 mg. She has had high blood pressure for at least 10 years. Denies known workup. Vasc: hx of the right leg dvt after an injury in 2014. 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 She states she did have a full workup from hematology. No need for anticoagulation. Psych: Well managed with hydroxyzine prn. Uses it rarely. Derm: Sees JANETH for skin checks Mammogram: UTD Consumer Insights Specialist: overdue [facility] Medical History (Updated 07/12/24 @ 08:31 by Gaby Callaway PA-C) Skin tag Anxiety Low serum alkaline phosphatase Thrombocytopenia Peripheral vascular disease Peripheral vascular disease Chronic seasonal allergic rhinitis Numerous moles Rash History of pulmonary embolus (PE) Postphlebitic leg ulcer History of deep venous thrombosis (DVT) of distal vein of right lower extremity Dyslipidemia Essential hypertension Surgical History History of hernia repair History of wisdom tooth extraction Hx of valvuloplasty Family History Father Hypertension Rheumatoid arthritis Mother Hypertension Diabetes Maternal Grandmother Hypertension Diabetes Mental health disorder Paternal Grandmother Mental health disorder Social History Housing: House Alcohol intake: current Patient Tobacco Use Status: Former Tobacco user (4 years ) Years Smoked: 14 years e-Cigarette/Vaping Use: Former Use (here and there.) Second Hand Smoke Exposure: No Substance Use Type: Former Substance User and Marijuana service: No Current occupational status: unemployed Cognitive needs: No Hearing needs: No Vision needs: No Questionnaire PHQ-9 Over the last 2 weeks, how often have you been bothered by any of the following problems? 1. Little interest or pleasure in doing things: not at all 2. Feeling down, depressed, or hopeless: not at all 3. Trouble falling or staying asleep, or sleeping too much: not at all 4. Feeling tired or having little energy: not at all 5. Poor appetite or overeating: not at all 6. Feeling bad about yourself - or that you are a failure or have let yourself or your family down: not at all 7. Trouble concentrating on things, such as reading the newspaper or watching television: not at all 8. Moving or speaking so slowly that other people could have noticed. Or the opposite - being so fidgety or restless that you have been moving around a lot more than usual: not at all 9. Thoughts that you would be better off or of hurting yourself in some way: not at all Total score: 0 Depression Screening Interpretation: Negative Depression Screening Done: Yes 19881 - PHQ-9 Billing: Yes Source: Developed by Drs. Tee Aden, Perla Miranda, Haja Charles and colleagues, with an educational july from [employer]. Thrive Questionnaire Date Thrive assessed: 07/12/24 I am a: Patient What is your living situation today?: I have a steady place to live Within the past 12 months, did the food you bought not last and you didn't have the money to get more?: Often true Within the past 12 months, did you worry whether your food would run out before you got money to buy more?: Never true Do you have trouble paying for medicines?: No Do you have trouble getting transportation to medical appointments?: No Do you have trouble paying your heating and electricity bill?: No Do you have trouble taking care of your child, family member or friend?: No Do you have trouble with day-to-day activities such as bathing, preparing meals, shopping, managing finances, etc.?: No Are you currently unemployed and looking for a job?: Yes Are you interested in more education?: Yes Please select the resources that you would like help with: None Currently or been in a relationship where the following occur: No concerns reported THRIVE Score: 1 AUDIT C Alcohol Use Questionnaire (AUDIT-C) 1. How often do you have a drink containing alcohol?: 2-4 times a month 2. How many drinks containing alcohol do you have on a typical day when you are drinking?: 1 or 2 3. How often do you have six or more drinks on one occasion?: Never Total Score: 2 MOOKIE-7 AMB Questionnaire MOOKIE-7 Date MOOKIE - 7 assessed: 07/12/24 Feeling nervous, anxious, or on edge: 0 = Not at all Not being able to stop or control worryin = Not at all Worrying too much about different things: 0 = Not at all Trouble relaxin = Not at all Being so restless that it is hard to sit still: 0 = Not at all Becoming easily annoyed or irritable: 0 = Not at all Feeling afraid as if something awful might happen: 0 = Not at all Total MOOKIE-7 score (0-4 normal; 5-9 mild; 10-14 moderate; 15-21 severe): 0 Source: Developed by Drs. Tee Aden, Perla Miranda, Haja Charles and colleagues, with an educational july from [employer]. MOOKIE-7 Assessment Billing MOOKIE-7 Assessment Tool: MOOKIE-7 Assessment 26540 Physical exam (Primary Care) Vital Signs: Last Vital Signs Pulse 69 07/12/24 08:10 BP 134/74 07/12/24 08:10 Pulse Ox 99 07/12/24 08:10 Oxygen Delivery Method Room Air 07/12/24 08:10 BMI result Body Mass Index 23.4 Tobacco/Smoking Status: Tobacco use Status Tobacco use date assessed 07/12/24 07/12/24 08:16 Patient Tobacco Use Status Former Tobacco user (4 years 07/12/24 08:15 ) e-Cigarette/Vaping Use Former Use (here and there.) 07/12/24 08:15 PHQ-9: PHQ-9 Score PHQ-9: Total score 0 07/12/24 08:16 Depression Screening Interpretation: Negative Thrive Assessment: Date of Thrive Assessment Date Thrive assessed 07/12/24 07/12/24 08:16 Currently or been in a relationship where the following occur: No concerns reported Const Orientation/consciousness: patient oriented x3 HENMT Ears: hearing grossly normal bilaterally and TM's normal bilaterally General nose exam: No nasal polyps present Face and sinus: Yes sinuses nontender Mouth: Normal oral and palatal mucosa present Eyes Pupils: Equal, round and reactive pupils present EOM: EOMs intact bilaterally Neck Neck: Yes full ROM and Yes no lymphadenopathy Thyroid: Thyroid normal Chest Chest palpation & inspection: normal inspection of the chest Breast/axilla inspection: normal inspection of the breasts and normal inspection of the axillae Breast/axilla palpation: normal palpation of the breasts and other (pain/tenderness in the 6 oclock position) Resp Auscultation: clear to auscultation bilaterally Cardio Rate: regular rate Rhythm: regular rhythm Heart sounds: S1 normal heart sound present and S2 normal heart sound present Peripheral pulses: Peripheral pulses 2+ throughout GI Other: Soft, nontender Auscultation: normal bowel sounds Rectal Exam - Female: deferred General: Yes no CVA tenderness Back/Spine/Pelvis Other: Nontender Back: no CVA tenderness Skin General skin exam: no rashes or lesions noted Neuro General: patient oriented x3, gait normal, CN's II-XI intact bilaterally and deep tendon reflexes 2+ bilaterally Cranial nerves: Yes Equal, round and reactive pupils present Motor exam (neuro): 5/5 motor strength present throughout Sensory Exam: double simultaneous stimulation for sensation normal Coordination: [id number] test normal and Romberg test negative Extrem General: Yes normal to inspection and Yes full ROM Psych Affect: normal affect Attitude: cooperative Thought process: Normal thought process present Thought content: Normal thought content present Insight: Good insight present (Psych) Judgement: Good judgement present (Psych) Results Reviewed Results Reviewed: ASSESSMENT: BI-RADS BI-RADS 1 - Negative RECOMMENDATION: Routine annual mammography screening. 1 year F/U Coding Level of Care Code Est Pt Prev Care 40-64y(50284) Diagnoses Routine general medical examination at a health care facility Z00.00 Generalized anxiety disorder with panic attacks F41.1; F41.0 Essential hypertension I10 Dyslipidemia E78.5 Breast pain, left N64.4 Additional Codes MOOKIE-7 Assessment Billing - MOOKIE-7 Assessment Tool: MOOKIE-7 Assessment 79714 ([id number]) PHQ-9 - 87532 - PHQ-9 Billing: Yes ([id number]) Assessment & Plan Assessment & Plan (1) Routine general medical examination at a health care facility: Code(s): Z00.00 - Encounter for general adult medical examination without abnormal findings Plan: Health maintenance reviewed. Referred her again to [facility]. Up-to-date on immunizations. Advised her to get labs. (2) Generalized anxiety disorder with panic attacks: Code(s): F41.1 - Generalized anxiety disorder; F41.0 - Panic disorder [episodic paroxysmal anxiety] Category: Medical Plan: Rarely uses hydroxyzine. (3) Essential hypertension: Code(s): I10 - Essential (primary) hypertension Category: Medical Plan: WNL and well-controlled with the amlodipine. Has had hypertension for many years. Unsure if she has had a workup for this. Ultrasound ordered. (4) Dyslipidemia: Code(s): E78.5 - Hyperlipidemia, unspecified Category: Medical Plan: Continue atorvastatin. Lipids and LFTs ordered. (5) Breast pain, left: Code(s): N64.4 - Mastodynia Category: Medical Plan: Persistent pain. Diagnostic ultrasound ordered. We will follow up pending test results. Follow up sooner if anything worsens or changes. Orders: Orders MM diagnostic mammo unilat LT Today N64.4 - Mastodynia US breast LT complete Today N64.4 - Mastodynia US renal doppler Today I10 - Essential (primary) hypertension Referrals [facility] Referral Z01.419 - Encounter for gynecological examination (general) (routine) without abnormal findings
[2024-07-12 08:10] VITALS: BP 134/74; PULSE 69; O2SAT 99; BMI 23.4
== END 2024-07-12 08:38 | disposition home or self-care (01) ==
PROVIDERS: PCP Physician Assistant; Visit Provider Physician Assistant
DX: Z00.00 Encounter for general adult medical examination without abnormal findings (principal); F41.1 Generalized anxiety disorder; F41.0 Panic disorder [episodic paroxysmal anxiety]; I10 Essential (primary) hypertension; E78.5 Hyperlipidemia, unspecified; N64.4 Mastodynia

== ENCOUNTER → 2024-07-12 08:01 | Outpatient (BNVA) | payer OTHER, SELFPAY | PROVIDERS: PCP Physician Assistant; Visit Provider Physician Assistant | DX: Z00.00 Encounter for general adult medical examination without abnormal findings (principal); F41.1 Generalized anxiety disorder; F41.0 Panic disorder [episodic paroxysmal anxiety]; I10 Essential (primary) hypertension; E78.5 Hyperlipidemia, unspecified; N64.4 Mastodynia | CPT/HCPCS: 96127; 99396 ==

== ENCOUNTER → 2024-07-30 12:15 | Outpatient (BNV) | payer OTHER, SELFPAY | PROVIDERS: PCP Physician Assistant; Visit Provider Internal Medicine | DX: N64.4 Mastodynia (principal) | CPT/HCPCS: 76642; 77061; 77065 ==

== ENCOUNTER 2024-07-30 12:16 | Outpatient (REF) | payer OTHER, SELFPAY ==
--- NOTE | ~2024-07-30 | MM_ITS ---
EXAMINATION: MM DIAGNOSTIC DIGITAL BREAST TOMOSYNTHESIS, LEFT Limited left breast ultrasound. CLINICAL INFORMATION: Left breast pain on clinical breast examination. Patient does not have pain today. COMPARISON: Mammography: Comparison is made with prior mammogram February 28, 2024. TECHNIQUE: Digital breast tomosynthesis is performed in both the craniocaudal and mediolateral oblique views along with computer-aided detection (CAD). Synthesized 2D images are generated from the tomosynthesis. Limited left breast ultrasound. FINDINGS: The breasts are extremely dense, which lowers the sensitivity of mammography (ACR BI-RADS breast composition Category d). There are no significant masses, abnormal calcifications, or other abnormalities. Targeted color Doppler ultrasound scanning in the upper inner quadrant lower outer quadrant and at 6:00 demonstrates an incidental simple cyst at 4:00 recent admission nipple measuring 6 x 3 x 6 mm. There is an other incidental simple cyst at 3:00 5 cm from nipple measuring 4 x 3 x 5 mm. Otherwise there is normal fibronodular breast tissue and no sonographic abnormality. MM/MM tomosynthesis diagnostic LT IMPRESSION: Simple cyst on ultrasound. Benign. No mammographic or sonographic abnormality to account for the patient's previous breast pain. Patient states no breast pain today. Recommend clinical evaluation and follow-up. ASSESSMENT: BI-RADS BI-RADS 2 - Benign Findings RECOMMENDATION: 1 year F/U Results were provided to the patient at time of visit by the technologist. This patient's information was entered into a reminder system with a target due date for their next mammogram. Electronically signed by: Shantelle Anderson DO 07/30/2024 01:23 PM LUIS
== END 2024-07-30 12:17 | disposition home or self-care (01) ==
LOC: HO.MAMMO 12:16
PROVIDERS: PCP Physician Assistant; Visit Provider Physician Assistant
DX: N64.4 Mastodynia (principal)
CPT/HCPCS: 76642; 77061; 77065

== ENCOUNTER 2024-08-24 09:42 | Outpatient (REF) | payer OTHER, SELFPAY ==
[2024-08-24 11:49] LABS: MANUAL DIFF FLAG NO
[2024-08-24 12:07] LABS: Basophils Percent Auto 0.6 % (0-2); Eosinophils Absolute Auto 0.1 X10*3/uL (0.0-0.4); Eosinophils Percent Auto 2.8 % (0-4); Hematocrit 35.8 % (37.0-47.0); Hemoglobin 12.9 g/dl (12.0-16.0); Imm Gran Abs Auto 0.02 X10*3/uL (0.00-0.03); Imm Gran Pct Auto 0.4 % (0.0-0.4); Lymphocytes Percent Auto 21.9 % (20-40); Mean Corpuscular Hemoglobin 30.1 pg (27.0-33.0); Mean Corpuscular Volume 83.4 fL (80.0-98.0); Mean Platelet Volume 9.7 fL (9.4-12.3); Monocytes Absolute Auto 0.3 X10*3/uL (0.1-1.2); Monocytes Percent Auto 5.5 % (2-11); Neutrophils Absolute Auto 3.2 x10*3/uL (2.0-8.3); Neutrophils Percent Auto 68.8 % (45-73); Platelet Count 155 X10*3/uL (160-400); Red Blood Count 4.29 X10*6/uL (4.20-5.50); Red Cell Distribution Width 12.3 % (11.0-16.0); White Blood Count 4.7 X10*3/uL (4.8-10.8)
[2024-08-24 15:05] LABS: Alanine Aminotransferase 38 U/L (0-31); Albumin Level 4.4 g/dL (3.5-5.0); Alkaline Phosphatase 24 U/L (39-117); Anion Gap 14 (12-20); Aspartate Amino Transferase 39 U/L (5-31); Bilirubin Total 1.8 mg/dL (0.0-1.0); Blood Urea Nitrogen 12 mg/dL (9-16); Calcium 9.6 mg/dL (8.4-10.2); Carbon Dioxide 23 mmol/L (22-29); Chloride 109 mmol/L (96-108); Cholesterol 147 mg/dL (<200); Estimated Glomerular Filt Rate > 60; Glucose Fasting 92 mg/dL (60-99); HDL Cholesterol 62 mg/dL (>40); LDL Cholesterol Calculated 62 mg/dL (<100); Potassium 3.7 mmol/L (3.3-5.1); Sodium 142 mmol/L (135-145); TSH reflex Free T4 1.63 uIU/mL (0.32-4.0); Total Protein 7.5 g/dL (6.5-8.0); Triglycerides 119 mg/dL (<150)
[2024-08-25 08:44] LABS: HBS Num1 34.27 mIU/mL (0-7.99); ~Hepatitis B Surface Antibody REACTIVE (Nonreactive)
== END 2024-08-24 09:43 | disposition home or self-care (01) ==
LOC: HO.WFDLDS 09:42
PROVIDERS: Visit Provider Physician Assistant
DX: F41.1 Generalized anxiety disorder (principal); F41.0 Panic disorder [episodic paroxysmal anxiety]; I83.11 Varicose veins of right lower extremity with inflammation; I73.9 Peripheral vascular disease, unspecified; E78.5 Hyperlipidemia, unspecified; I10 Essential (primary) hypertension; Z28.39 Other underimmunization status
CPT/HCPCS: 36415; 80053; 80061; 84443; 85025; 86706

== ENCOUNTER 2024-08-24 10:18 | Outpatient (REF) | payer OTHER, SELFPAY ==
--- NOTE | ~2024-08-24 | US_ITS ---
CLINICAL HISTORY: I10 - Essential (primary) hypertension US Renal with Doppler Comparison: None Findings: Right kidney normal size with increased echotexture, 11.2 cm length. No hydronephrosis. Normal color Doppler. Resistive index 0.66. Left kidney normal size with increased echotexture, 11.0 cm length. No hydronephrosis. Normal color Doppler. Resistive index 0.67. IMPRESSION: 1. Findings suggesting chronic renal disease. Correlate clinical and laboratory findings. 2. No evidence of renal artery stenosis This document has been electronically signed by: Denis France MD on 08/25/2024 09:31:56
== END 2024-08-24 10:19 | disposition home or self-care (01) ==
LOC: HO.US 10:18
PROVIDERS: PCP Physician Assistant; Visit Provider Physician Assistant
DX: I10 Essential (primary) hypertension (principal)
CPT/HCPCS: 76775; 93975

== ENCOUNTER → 2024-08-24 10:21 | Outpatient (BNV) | payer OTHER, SELFPAY | PROVIDERS: PCP Physician Assistant; Visit Provider Specialist | DX: I10 Essential (primary) hypertension (principal) | CPT/HCPCS: 76775; 93975 ==

== ENCOUNTER → 2024-08-30 14:06 | Outpatient (BNVA) | payer OTHER, SELFPAY | PROVIDERS: PCP Physician Assistant; Visit Provider Physician Assistant ==

== ENCOUNTER 2024-09-04 11:30 | Outpatient (REF) | payer OTHER, SELFPAY ==
--- NOTE | ~2024-09-04 | US_ITS ---
CLINICAL HISTORY: R79.89 - Other specified abnormal findings of blood chemistry US abdomen complete Comparison: None Findings: The visualized pancreas is normal. The aorta and inferior vena cava are normal caliber. The appearance of the liver suggests fatty infiltration without focal lesion. There is no intrahepatic bile duct dilatation. The common duct is 2.3 mm in diameter. The gallbladder is normal. There is no sonographic Mchugh sign. The main portal vein is antegrade. The right kidney is 11.5 cm in length. The left kidney is 10.8 cm in length. The spleen is normal. No ascites. IMPRESSION: 1. Hepatic steatosis. This document has been electronically signed by: Denis France MD on 09/08/2024 09:26:09
== END 2024-09-04 11:31 | disposition home or self-care (01) ==
LOC: HO.HMGCX 11:30
PROVIDERS: PCP Physician Assistant; Visit Provider Physician Assistant
DX: R79.89 Other specified abnormal findings of blood chemistry (principal)
CPT/HCPCS: 76700

== ENCOUNTER → 2024-09-04 11:31 | Outpatient (BNV) | payer OTHER, SELFPAY | PROVIDERS: PCP Physician Assistant; Visit Provider Specialist | DX: K75.81 Nonalcoholic steatohepatitis (NASH) (principal); R74.01 Elevation of levels of liver transaminase levels | CPT/HCPCS: 76700 ==

== ENCOUNTER 2024-09-10 13:43 | Outpatient (AMB) | payer OTHER, SELFPAY ==
--- NOTE | 2024-09-10 13:50 | HO.NEPHOV_ITS ---
Vital Signs 09/10/24 13:51 Height 5 ft 10 in Weight 167 lb BMI 24.0 BP 122/74 Blood Pressure Location Rt brachial Position Sitting Pulse 85 Pulse Source Pulse Oximeter Pulse Oximetry (%) 99 Oxygen Delivery Method Room Air Intake Visit Reasons: INP: Essential (primary) Htn/ LVM [employer] Required: No Accompanied by: Self / Same As Patient Allergies No Known Allergies Allergy (Verified 09/10/24 13:51) HPI Comments Details: I had the privilege of seeing Carolina who is a delightful 44-year-old female with H/O hyperlipidemia, hypertension & hx of right dvt. She has not had any work up for hypertension which she had for at least 10 years. Her blood pressures is well controlled on amlodipine 10 mg. Her cholesterol is controlled with atorvastatin 20 mg.She has H/O bilateral PEs. She states she did have a full workup from hematology & was told that she does no need for [place] [facility] anticoagulation. She has no H/O cocaine use, excessive sodium or NSAID use. She has no DM, CAD, CVA, CHF, PAD or known PRINCE. She has no H/O uncontrolled thyroid disorders, hypokalemia, hypercalcemia or CLARITA. Her renal function has been normal. [facility] Medical History (Updated 10/05/24 @ 13:26 by Gaby Callaway PA-C) Skin tag Anxiety Low serum alkaline phosphatase Thrombocytopenia Peripheral vascular disease Peripheral vascular disease Chronic seasonal allergic rhinitis Numerous moles Rash History of pulmonary embolus (PE) Postphlebitic leg ulcer History of deep venous thrombosis (DVT) of distal vein of right lower extremity Dyslipidemia Essential hypertension Surgical History History of hernia repair History of wisdom tooth extraction Hx of valvuloplasty Family History Father Hypertension Rheumatoid arthritis Mother Hypertension Diabetes Maternal Grandmother Hypertension Diabetes Mental health disorder Paternal Grandmother Mental health disorder Social History Housing: House Alcohol intake: current Patient Tobacco Use Status: Former Tobacco user (4 years ) Years Smoked: 14 years e-Cigarette/Vaping Use: Former Use (here and there.) Second Hand Smoke Exposure: No Substance Use Type: Former Substance User and Marijuana service: No Current occupational status: unemployed Cognitive needs: No Hearing needs: No Vision needs: No Review of Systems Const All systems reviewed & are unremarkable except as noted in HPI and below Physical Exam Vital Signs: Last Vital Signs Pulse 85 09/10/24 13:51 BP 122/74 09/10/24 13:51 Pulse Ox 99 09/10/24 13:51 Oxygen Delivery Method Room Air 09/10/24 13:51 BMI result Body Mass Index 24.0 Const General: comfortable and no acute distress Orientation/consciousness: patient oriented x3 HEENT Head: Yes normocephalic Mouth: Normal oral and palatal mucosa present Eyes EOM: EOMs intact bilaterally Neck Neck: Yes supple Resp Auscultation: clear to auscultation bilaterally Cardio Jugular venous distension: no JVD Rate: regular rate GI Palpation (GI): Soft to palpation Auscultation: normal bowel sounds General: Yes no CVA tenderness Back/Spine/Pelvis Back: no CVA tenderness Skin General skin exam: no rashes or lesions noted Neuro General: patient oriented x3 and moves all extremities Extrem General: Yes no pedal edema Results Reviewed Nephrology Results: Hgb 12.9 g/dl (12.0-16.0) 08/24/24 WBC 4.7 X10*3/uL (4.8-10.8) L 08/24/24 Plt Count 155 X10*3/uL (160-400) L 08/24/24 Sodium 139 mmol/L (135-145) 10/03/24 Potassium 3.9 mmol/L (3.3-5.1) 10/03/24 Chloride 109 mmol/L (96-108) H 10/03/24 Carbon Dioxide 23 mmol/L (22-29) 10/03/24 BUN 13 mg/dL (9-16) 10/03/24 Creatinine 0.91 mg/dL (0.5-1.4) 10/03/24 Calcium 9.1 mg/dL (8.4-10.2) 10/03/24 Urine Protein 30 (1+) mg/dL (Neg-Trace) H 10/03/24 Urine Creatinine 115.41 mg/dL 10/03/24 Protein/Creatinin Ratio 0.34 (<0.2) H 10/03/24 Renal US 08/25/24 Assessment & Plan Assessment & Plan (1) Essential hypertension: Code(s): I10 - Essential (primary) hypertension Category: Medical Plan 44-year-old female with H/O hypertension which she had for at least 10 years. Her blood pressures is well controlled on amlodipine 10 mg. Her cholesterol is controlled with atorvastatin 20 mg. She has no H/O cocaine use, excessive sodium or NSAID use. She has no DM, CAD, CVA, CHF, PAD or known PRINCE. She has no H/O uncontrolled thyroid disorders, hypokalemia, hypercalcemia or CLARITA. Her renal function has been normal. I ordered basic work up. I did not make any medication changes. I shall consider changing her medication regimen based on evolving data. All questions answered Orders: Orders Creatinine 6 Weeks I10 - Essential (primary) hypertension Blood Urea Nitrogen 6 Weeks I10 - Essential (primary) hypertension Electrolytes 6 Weeks I10 - Essential (primary) hypertension Calcium 6 Weeks I10 - Essential (primary) hypertension TSH reflex Free T4 6 Weeks I10 - Essential (primary) hypertension Protein Creatinine Ratio, Ur 6 Weeks I10 - Essential (primary) hypertension UA and rflx microscopic 6 Weeks I10 - Essential (primary) hypertension Cortisol Random 6 Weeks I10 - Essential (primary) hypertension Metanephrines, Plasma 6 Weeks I10 - Essential (primary) hypertension Renin 6 Weeks I10 - Essential (primary) hypertension Aldosterone 6 Weeks I10 - Essential (primary) hypertension Coding Level of Care Code New Pt Level 4 (18290) Diagnoses Essential hypertension I10
[2024-09-10 13:51] VITALS: BP 122/74; PULSE 85; O2SAT 99; BMI 24.0
== END 2024-09-10 14:19 | disposition home or self-care (01) ==
PROVIDERS: PCP Physician Assistant; Visit Provider Internal Medicine Nephrology
DX: I10 Essential (primary) hypertension (principal)
CPT/HCPCS: 99204

== ENCOUNTER → 2024-09-10 13:43 | Outpatient (BNVA) | payer OTHER, SELFPAY | PROVIDERS: PCP Physician Assistant; Visit Provider Internal Medicine Nephrology | DX: I10 Essential (primary) hypertension (principal) | CPT/HCPCS: 99202 ==

== ENCOUNTER 2024-10-03 10:39 | Outpatient (REF) | payer OTHER, SELFPAY | END 2024-10-03 10:40 | disposition home or self-care (01) | LOC: HO.WFDLDS 10:39 | PROVIDERS: Referring Provider Internal Medicine Nephrology; Visit Provider Physician Assistant | DX: Z13.89 Encounter for screening for other disorder (principal) ==

== ENCOUNTER 2024-10-03 11:16 | Outpatient (REF) | payer OTHER, SELFPAY ==
[2024-10-03 12:18] LABS: Appearance Urine Clear; Color Urine Yellow; Glucose Urine UA Negative (Negative); Leukocyte Esterase Urine Negative (Negative); Nitrite Urine Negative (Negative); PH 6.5 (5.0-9.0); UMIC TRIGGER UA YES; Urine Blood Negative (Negative); Urine Ketones Negative (Negative); Urine Protein 30 (1+) mg/dL (Neg-Trace)
[2024-10-03 12:32] LABS: Bacteria Urine 1+ (None Seen); Hyaline Casts Urine 0-2 /LPF (0-2); WBC Urine 0-5 /HPF (0-5)
[2024-10-03 12:43] LABS: Gamma Glutamyl Transpeptidase 15 U/L (7-33)
[2024-10-03 13:05] LABS: Cortisol Random 6.7 ug/dL
[2024-10-03 13:07] LABS: Alanine Aminotransferase 41 U/L (0-31); Albumin Level 4.2 g/dL (3.5-5.0); Alkaline Phosphatase 22 U/L (39-117); Anion Gap 11 (12-20); Aspartate Amino Transferase 34 U/L (5-31); Bilirubin Direct 0.2 mg/dL (0.0-0.5); Bilirubin Total 1.1 mg/dL (0.0-1.0); Blood Urea Nitrogen 13 mg/dL (9-16); Calcium 9.1 mg/dL (8.4-10.2); Carbon Dioxide 23 mmol/L (22-29); Chloride 109 mmol/L (96-108); Estimated Glomerular Filt Rate > 60; Glucose Random 89 mg/dL (60-115); Potassium 3.9 mmol/L (3.3-5.1); Sodium 139 mmol/L (135-145); Total Protein 7.4 g/dL (6.5-8.0)
[2024-10-03 13:08] LABS: TSH reflex Free T4 1.14 uIU/mL (0.32-4.0)
[2024-10-03 13:10] LABS: Hepatitis A Antibody IgM 0.13 Index (0-0.79); ~Hepatitis A Antibody IgM Nonreactive (Nonreactive)
[2024-10-03 13:11] LABS: ~HepC Num1 0.09 S/CO (0.00-0.79); ~Hepatitis C Antibody Nonreactive (Nonreactive)
[2024-10-03 14:24] LABS: Creatinine Urine 115.41 mg/dL; Protein/Creatinine Ratio, Ur 0.34 (<0.2); Total Protein Urine Random 39 mg/dL (<12)
[2024-10-08 12:09] LABS: Metanephrine, Free <25 pg/mL (<=57); Normetanephrines, Free 47 pg/mL (<=148); Total Metanephrine, Free 47 pg/mL (<=205)
[2024-10-13 13:20] LABS: Renin 5.12 ng/mL/h (0.25-5.82)
== END 2024-10-03 11:17 | disposition home or self-care (01) ==
LOC: HO.LAB 11:16
PROVIDERS: PCP Physician Assistant; Referring Provider Physician Assistant; Visit Provider Internal Medicine Nephrology
DX: I10 Essential (primary) hypertension (principal); R94.5 Abnormal results of liver function studies
CPT/HCPCS: 36415; 80053; 81001; 82088; 82248; 82533; 82570; 82977; 83835; 84156; 84244; 84443; 86709; 86803

== ENCOUNTER 2024-11-05 12:30 | Outpatient (AMB) | payer OTHER, SELFPAY ==
--- NOTE | 2024-11-05 12:36 | AM.OFFWIN_ITS ---
Intake Vital Signs 3 11/05/24 12:40 Height 5 ft 10 in Weight 165 lb 8 oz BMI 23.7 BP 132/74 Blood Pressure Location Lt brachial Position Sitting Respiration 13 Pulse 75 Pulse Source Pulse Oximeter Temp 97.4 F Temp Source Oral Pulse Oximetry (%) 98 Oxygen Delivery Method Room Air Intake Visit Reasons: Rash on right side near upper chest. 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 Allergies No Known Allergies Allergy (Verified 11/05/24 12:46) Medication List - Last Reconciled 11/05/24 by Alicia Arriaga, [facility]- amlodipine 10 mg PO DAILY aspirin 81 mg PO DAILY azelastine 1 spray intranasal BID comp.stocking,knee,long,medium Use daily As directed for right leg hydroxyzine HCl 25 mg PO BID PRN 30 days Do you need a note to return to daycare/school/sports/work: No HPI HPI Comments 2 History of Present Illness0 Details The patient is a 44-year-old female presenting with a rash - Rash on the R side of the chest, first noticed 1-2 days ago, identified by the patient's mother as potentially shingles. - Rash has progressively become redder, though currently without pain or itchiness. - Slight uncomfortable sensation when ly ing on affected area observed. - Applied coconut oil post-shower; no ot her treatments attempted. - Denies fever, chills, exposure, or rec ent travel. - Ongoing management of essential hypert ension with amlodipine; requires a refill. Denies fever, chills, recent travel, exposures to otherwise with this rash Exam: Right trunk I reviewed with the patient that the clinical appearance of the rash is consistent with herpes zoster (shingles). We discussed the necessity of starting antiviral treatment promptly to reduce viral load and prevent further exacerbation of the rash. I explained the role of valacyclovir in treatment and emphasized the importance of taking it with food to minimize gastrointestinal discomfort. I also discussed the use of gabapentin as needed for nerve pain, although it might not be required if pain is absent. Additionally, I recommended the use of a topical lidocaine patch to manage local symptoms. The patient was advised on how to optimally utilize the lidocaine patch and instructed on medication administration frequency. Refills were discussed and processed as needed. The patient feels reassured and understands the importance of prompt treatment, along with acknowledging her mother's guidance in identifying the issue early. 1. Herpes Zoster (Shingles): The clinica l presentation of the rash aligns with herpes zoster. Valacyclovir therapy will commence immediately, with instructions to take the medication indoors and careful monitoring for adverse reactions. Gabapentin is available when indicated for nerve-related discomfort, and a lidocaine patch will address localized discomfort. 2. Essential Hypertension: The patient w ill maintain current hypertension management with amlodipine, with a successfully processed refill to sustain treatment. Patient was informed and verbally consented to the use of an ambient scribe for clinic note documentation during this visit. [facility] Medical History (Updated 11/05/24 @ 12:51 by Alicia Arriaga, [facility]) Anxiety Chronic seasonal allergic rhinitis Dyslipidemia Essential hypertension History of deep venous thrombosis (DVT) of distal vein of right lower extremity History of pulmonary embolus (PE) Low serum alkaline phosphatase Numerous moles Peripheral vascular disease Peripheral vascular disease Postphlebitic leg ulcer Rash Skin tag Thrombocytopenia Surgical History History of hernia repair History of wisdom tooth extraction Hx of valvuloplasty Family History Father Hypertension Rheumatoid arthritis Mother Hypertension Diabetes Maternal Grandmother Hypertension Diabetes Mental health disorder Paternal Grandmother Mental health disorder Social History Housing: House Alcohol intake: current Patient Tobacco Use Status: Former Tobacco user (4 years ) Years Smoked: 14 years e-Cigarette/Vaping Use: Former Use (here and there.) Second Hand Smoke Exposure: No Substance Use Type: Former Substance User and Marijuana service: No Current occupational status: unemployed Cognitive needs: No Hearing needs: No Vision needs: No Physical Exam Vital Signs: Last Vital Signs Temp 97.4 F 11/05/24 12:40 Pulse 75 11/05/24 12:40 Resp 13 11/05/24 12:40 BP 132/74 11/05/24 12:40 Pulse Ox 98 11/05/24 12:40 Oxygen Delivery Method Room Air 11/05/24 12:40 BMI result Body Mass Index 23.7 Assessment & Plan Assessment & Plan (1) Shingles: Code(s): B02.9 - Zoster without complications Qualifiers: Herpes zoster complications: without complications Qualified Code(s): B 02.9 - Zoster without complications Plan: . (2) Essential hypertension: Code(s): I10 - Essential (primary) hypertension Plan . Medications: New 2 valacyclovir 1,000 mg PO Q8H 21 tabs 0RF 7 days gabapentin 100 mg PO TID PRN 21 caps 0RF pain 7 days lidocaine 4% (Blue-Emu Lidocaine Patch) 1 patch topical DAILY PRN 30 ea 0RF pain Refilled 2 amlodipine 10 mg PO DAILY 90 tabs 3RF Coding Level of Care Code Est Pt Level 3 (04609) Diagnoses Herpes zoster without complication B02.9 Herpes zoster complications: without complications Essential hypertension I10
[2024-11-05 12:40] VITALS: BP 132/74; PULSE 75; RESP 13; TEMP 36.3; O2SAT 98; BMI 23.7
== END 2024-11-05 12:53 | disposition home or self-care (01) ==
PROVIDERS: PCP Physician Assistant; Visit Provider Nurse Practitioner Family
DX: B02.9 Zoster without complications (principal); I10 Essential (primary) hypertension

== ENCOUNTER → 2024-11-05 12:30 | Outpatient (BNVA) | payer OTHER, SELFPAY | PROVIDERS: PCP Physician Assistant | DX: B02.9 Zoster without complications (principal); I10 Essential (primary) hypertension | CPT/HCPCS: 99212 ==

== ENCOUNTER 2024-11-07 14:07 | Outpatient (AMB) | payer OTHER, SELFPAY ==
--- NOTE | 2024-11-07 14:17 | HO.NEPHOV_ITS ---
Vital Signs 11/07/24 14:18 Height 5 ft 10 in Weight 165 lb 4 oz BMI 23.7 BP 130/88 Blood Pressure Location Rt brachial Position Sitting Pulse 66 Pulse Source Pulse Oximeter Pulse Oximetry (%) 98 Oxygen Delivery Method Room Air Intake Visit Reasons: 2 mon fu w/ labs-Conf Out Patient Therapist Required: No Accompanied by: Self / Same As Patient Allergies No Known Allergies Allergy (Verified 11/07/24 14:18) HPI Comments Details: Carolina who is a delightful 44-year-old female with H/O hyperlipidemia, hypertension & hx of right dvt. She has not had any work up for hypertension which she had for at least 10 years. Her blood pressures is well controlled on amlodipine 10 mg. Her cholesterol is controlled with atorvastatin 20 mg.She has H/O bilateral PEs. 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 She has no H/O cocaine use, excessive sodium or NSAID use. She has no DM, CAD, CVA, CHF, PAD or known PRINCE. She has no H/O uncontrolled thyroid disorders, hypokalemia, hypercalcemia or CLARITA. She has shingles and is on medications. Her renal function has been normal [facility] Medical History (Updated 11/07/24 @ 14:49 by Darron León MD) DVT of leg (deep venous thrombosis) Skin tag Anxiety Low serum alkaline phosphatase Thrombocytopenia Peripheral vascular disease Peripheral vascular disease Chronic seasonal allergic rhinitis Numerous moles Rash History of pulmonary embolus (PE) Postphlebitic leg ulcer History of deep venous thrombosis (DVT) of distal vein of right lower extremity Dyslipidemia Essential hypertension Surgical History History of hernia repair History of wisdom tooth extraction Hx of valvuloplasty Family History Father Hypertension Rheumatoid arthritis Mother Hypertension Diabetes Maternal Grandmother Hypertension Diabetes Mental health disorder Paternal Grandmother Mental health disorder Social History Housing: House Alcohol intake: current Patient Tobacco Use Status: Former Tobacco user (4 years ) Years Smoked: 14 years e-Cigarette/Vaping Use: Former Use (here and there.) Second Hand Smoke Exposure: No Substance Use Type: Former Substance User and Marijuana service: No Current occupational status: unemployed Cognitive needs: No Hearing needs: No Vision needs: No Review of Systems Const All systems reviewed & are unremarkable except as noted in HPI and below Physical Exam Vital Signs: Last Vital Signs Pulse 66 11/07/24 14:18 BP 130/88 11/07/24 14:18 Pulse Ox 98 11/07/24 14:18 Oxygen Delivery Method Room Air 11/07/24 14:18 BMI result Body Mass Index 23.7 Results Reviewed Nephrology Results: Sodium 139 mmol/L (135-145) 10/03/24 Potassium 3.9 mmol/L (3.3-5.1) 10/03/24 Chloride 109 mmol/L (96-108) H 10/03/24 Carbon Dioxide 23 mmol/L (22-29) 10/03/24 BUN 13 mg/dL (9-16) 10/03/24 Creatinine 0.91 mg/dL (0.5-1.4) 10/03/24 Calcium 9.1 mg/dL (8.4-10.2) 10/03/24 Urine Protein 30 (1+) mg/dL (Neg-Trace) H 10/03/24 Urine Creatinine 115.41 mg/dL 10/03/24 Protein/Creatinin Ratio 0.34 (<0.2) H 10/03/24 Assessment & Plan Assessment & Plan (1) Essential hypertension: Code(s): I10 - Essential (primary) hypertension Category: Medical Plan 44-year-old female with H/O hypertension which she had for at least 10 years. Her blood pressures is well controlled on amlodipine 10 mg. Her cholesterol is controlled with atorvastatin 20 mg. She has no H/O cocaine use, excessive sodium or NSAID use. She has no DM, CAD, CVA, CHF, PAD or known PRINCE. She has no H/O uncontrolled thyroid disorders, hypokalemia, hypercalcemia or CLARITA. Her renal function has been normal. I ordered basic work up. I did not make any medication changes. I shall consider changing her medication regimen based on evolving data ( edema). Ordered some W/U for H/O unprovoked DVT at a young age. All questions answered Orders: Orders Factor V Leiden Today I82.409 - Acute embolism and thrombosis of unspecified deep veins of unspecified lower extremity Protein C Activity Reflex Ag Today I82.409 - Acute embolism and thrombosis of unspecified deep veins of unspecified lower extremity Protein S Activity reflex Ag Today I82.409 - Acute embolism and thrombosis of unspecified deep veins of unspecified lower extremity Anti-Thrombin III Activity Today I82.409 - Acute embolism and thrombosis of unspecified deep veins of unspecified lower extremity Beta-2 Glycoprotein Antibody Today I82.409 - Acute embolism and thrombosis of unspecified deep veins of unspecified lower extremity Cardiolipin Antibodies Today I82.409 - Acute embolism and thrombosis of unspecified deep veins of unspecified lower extremity Lupus Anticoagulant Panel Today I82.409 - Acute embolism and thrombosis of unspecified deep veins of unspecified lower extremity Coding Level of Care Code Est Pt Level 4 (21687) Diagnoses Essential hypertension I10
[2024-11-07 14:18] VITALS: BP 130/88; PULSE 66; O2SAT 98; BMI 23.7
== END 2024-11-07 15:00 | disposition home or self-care (01) ==
PROVIDERS: PCP Physician Assistant; Visit Provider Internal Medicine Nephrology
DX: I10 Essential (primary) hypertension (principal)
CPT/HCPCS: 99214

== ENCOUNTER 2024-11-07 14:07 | Outpatient (REF) | payer OTHER, SELFPAY ==
[2024-11-07 16:08] LABS: Anion Gap 13 (12-20); Blood Urea Nitrogen 13 mg/dL (9-16); Calcium 9.8 mg/dL (8.4-10.2); Carbon Dioxide 26 mmol/L (22-29); Chloride 106 mmol/L (96-108); Estimated Glomerular Filt Rate 57; Potassium 3.7 mmol/L (3.3-5.1); Sodium 141 mmol/L (135-145)
[2024-11-07 17:22] LABS: Appearance Urine Clear; Color Urine Yellow; Glucose Urine UA Negative (Negative); Leukocyte Esterase Urine Negative (Negative); Nitrite Urine Negative (Negative); PH 7.5 (5.0-9.0); Specific Gravity - Urine <= 1.005 (1.005-1.025); Urine Blood Negative (Negative); Urine Ketones Negative (Negative); Urine Protein Negative (Neg-Trace)
[2024-11-08 22:28] LABS: Cardiolipin IgG Ab >112.0 GPL-U/mL; Cardiolipin IgM Ab <2.0 MPL-U/mL
[2024-11-10 02:08] LABS: Anti-Thrombin III Activity 134 % normal (80-135); Protein C Activity 162 % normal (70-180); Protein S Activity rflx Tot&Fr 72 % normal (60-140)
[2024-11-13 05:38] LABS: Beta-2 Glycoprotein IgA <2.0 U/mL (<20.0); Beta-2 Glycoprotein IgG >112.0 U/mL (<20.0); Beta-2 Glycoprotein IgM <2.0 U/mL (<20.0)
[2024-11-13 05:48] LABS: DRVVT 1:1 Mix NOT CORRECTED (CORRECTED); DRVVT 1:1 Mix Interpretation Positive; DRVVT Confirmation Positive (Negative); Hexagonal Phase Neutralization Positive (Negative)
[2024-11-13 06:14] LABS: PTT (LAC) Screen 69 sec (<=40); Thrombin Clotting Time 18 sec (13-19)
[2024-11-14 04:24] LABS: Factor V Leiden NEGATIVE
== END 2024-11-07 14:08 | disposition home or self-care (01) ==
LOC: HO.LAB 14:07
PROVIDERS: PCP Physician Assistant; Visit Provider Internal Medicine Nephrology
DX: I10 Essential (primary) hypertension (principal)
CPT/HCPCS: 36415; 80051; 81003; 81241; 82310; 82565; 84520; 85300; 85302; 85303; 85306; 85597; 85598; 85613; 85670; 85730; 86146; 86147; 99212

== ENCOUNTER 2024-11-15 11:31 | Outpatient (AMB) | payer OTHER, SELFPAY ==
--- NOTE | 2024-11-15 11:32 | MHC.OFFWIV ---
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 Allergies No Known Allergies Allergy (Verified 11/15/24 11:54) Medication List - Last Reconciled 11/15/24 by Alicia Arriaga, [facility]- amlodipine 10 mg PO DAILY aspirin 81 mg PO DAILY azelastine 1 spray intranasal BID comp.stocking,knee,long,medium Use daily As directed for right leg gabapentin 100 mg PO TID PRN 7 days hydroxyzine HCl 25 mg PO BID PRN 30 days lidocaine 4% (Blue-Emu Lidocaine Patch) 1 patch topical DAILY PRN Do you need a note to return to daycare/school/sports/work: No HPI HPI Comments History of Present Illness Details History of Present Illness - The patient is a 44 year old female presenting with worsening pain and leaking of venous ulcer on the right ankle. - History of chronic venous insufficiency and past vascular surgery in [id number], which initially resolved the ulceration issues. - Currently experiencing pain aggravated by walking or standing; symptoms improve with elevation. - Previously had two pulmonary embolisms and a blood clot in the right leg & required blood thinners. At this time, she has no SOB or chest pain. - Has been managing with compression stockings and home wound care. - Reports discoloration of the toes as stable and unchanged for several years. Discussion Notes During this visit, I explained the likely cause of the venous ulcer and the importance of managing chronic venous disease. We discussed interventions such as the use of antibiotics to prevent infection and the necessity of follow-up with vascular surgery for management and potential further intervention. I reviewed the need for a stat ultrasound to rule out an acute blood clot in the right leg. Additionally, potential blood clotting disorders were touched upon, and follow-up with Dr. Tierney the kidney specialist for evaluation of the abnormal labs was recommended. I also emphasized the importance of maintaining elevation and home wound care. The urgency of returning to vascular surgery for evaluation and long-term management of her venous disease was discussed, along with the use of appropriate dressing to keep the ulcer moist to aid in healing. The patient was advised on the expected follow-up with the primary care provider for further management and care continuity. Assessment and Plan 1. Venous ulcers of the right ankle Initiate Keflex antibiotic therapy to prevent infection. Recommend Xeroform gauze & DCD QD for maintaining a moist wound environment with daily dressing changes. Placed today. 2. History of pulmonary embolism and chronic venous insufficiency Perform a stat ultrasound to check for new/right lower extremity clotting issues. Continue compression stockings. 3. Blood clot in right lower extremity Assess for new clots via ultrasound and interpret results to guide further interventions. 4. Further evaluation Follow up on laboratory anomalies with Dr. Tierney to rule out potential genetic thrombophilia. 5. Follow-up care Schedule with primary care based on vascular and ultrasound results to ensure continuity of care. Patient Instructions - Take Keflex (cephalexin) as prescribed, 1 tablet three times a day for seven days. - Apply Xeroform gauze to keep the ulcer moist and change dressing daily. - Keep the leg elevated to alleviate pain and swelling. - Attend the stat ultrasound appointment at [facility] today. - Follow up with Dr. Tierney for laboratory result discussion. - Schedule an appointment with your primary care physician within the next week. Consent Patient was informed and verbally consented to the use of an ambient scribe for clinic note documentation during this visit. Total time spent caring for the patient today was 41 minutes. This includes time spent before the visit reviewing the chart, time spent during the visit, and time spent after the visit on documentation, reviewing laboratory results, diagnostic imaging, medications, performing a medically necessary evaluation, counseling on diagnoses, care coordination, ordering appropriate tests, ordering appropriate medications, review of tests performed by other providers, reporting test results with the patient, communication with other healthcare providers. Physical Exam General: Well developed, well nourished, in no acute distress. Appears stated age. Pulses: Peripheral pulses are equal and palpable bilaterally. Good pulse noted in the right lower extremity. Extremities: No clubbing nor edema is noted. Discoloration noted in the toes, which is normal for the patient. Ulcer present on the right ankle, with pain noted especially when standing. The heel and ankle are very sore to touch per patient although there isnt excessive warmth or erythema. There is azul, yellow d/c noted on dressing removed. Psych: Mood and affect appropriate. RLE: + PP, see picture for discoloration and ulcer PFSH Medical History (Updated 11/15/24 @ 12:08 by Alicia Arriaga, [facility]) Anxiety Chronic seasonal allergic rhinitis DVT of leg (deep venous thrombosis) Dyslipidemia Essential hypertension History of deep venous thrombosis (DVT) of distal vein of right lower extremity History of pulmonary embolus (PE) Low serum alkaline phosphatase Numerous moles Peripheral vascular disease Peripheral vascular disease Postphlebitic leg ulcer Rash Skin tag Thrombocytopenia Surgical History History of hernia repair History of wisdom tooth extraction Hx of valvuloplasty Family History Father Hypertension Rheumatoid arthritis Mother Hypertension Diabetes Maternal Grandmother Hypertension Diabetes Mental health disorder Paternal Grandmother Mental health disorder Social History Housing: House Alcohol intake: current Patient Tobacco Use Status: Former Tobacco user Years Smoked: 14 years e-Cigarette/Vaping Use: Former Use Second Hand Smoke Exposure: No Substance Use Type: Former Substance User and Marijuana service: No Current occupational status: unemployed Cognitive needs: No Hearing needs: No Vision needs: No Physical Exam Vital Signs: Last Vital Signs Temp 97.4 F 11/15/24 11:36 Pulse 70 11/15/24 11:36 Resp 13 11/15/24 11:36 BP 114/70 11/15/24 11:36 Pulse Ox 99 11/15/24 11:36 Oxygen Delivery Method Room Air 11/15/24 11:36 BMI result Body Mass Index 24.0 Assessment & Plan Assessment & Plan (1) Venous ulcer of ankle: Code(s): I83.003 - Varicose veins of unspecified lower extremity with ulcer of ankle; L97.309 - Non-pressure chronic ulcer of unspecified ankle with unspecified severity Qualifiers: Varicose vein presence: with varicose veins Laterality: right Non-pressure ulcer stage: limited to breakdown of skin Qualified Code(s): I83.013 - Varicose veins of right lower extremity with ulcer of ankle; L97.311 - Non-pressure chronic ulcer of right ankle limited to breakdown of skin (2) Peripheral vascular disease: Comment: Status post stent to right common iliac vein Code(s): I73.9 - Peripheral vascular disease, unspecified (3) History of deep venous thrombosis (DVT) of distal vein of right lower extremity: Code(s): Z86.718 - Personal history of other venous thrombosis and embolism Plan . Orders: Orders US venous duplex LE RT Today I73.9 - Peripheral vascular disease, unspecified, Z86.718 - Personal history of other venous thrombosis and embolism Referrals Vascular Surgery Referral I73.9 - Peripheral vascular disease, unspecified, Z86.718 - Personal history of other venous thrombosis and embolism Medications: New cephalexin 500 mg PO Q8H 21 caps 0RF Coding Level of Care Code Est Pt Level 5 (42225) Diagnoses Venous stasis ulcer of right ankle limited to breakdown of skin with varicose veins I83.013; L97.311 Varicose vein presence: with varicose veins Laterality: right Non-pressure ulcer stage: limited to breakdown of skin Peripheral vascular disease I73.9 History of deep venous thrombosis (DVT) of distal vein of right lower extremity Z86.718
[2024-11-15 11:36] VITALS: BP 114/70; PULSE 70; RESP 13; TEMP 36.3; O2SAT 99; BMI 24.0
== END 2024-11-15 12:06 | disposition home or self-care (01) ==
PROVIDERS: PCP Physician Assistant; Visit Provider Nurse Practitioner Family
DX: I83.013 Varicose veins of right lower extremity with ulcer of ankle (principal); L97.311 Non-pressure chronic ulcer of right ankle limited to breakdown of skin; I73.9 Peripheral vascular disease, unspecified; Z86.718 Personal history of other venous thrombosis and embolism

== ENCOUNTER → 2024-11-15 11:31 | Outpatient (BNVA) | payer OTHER, SELFPAY | PROVIDERS: PCP Physician Assistant; Visit Provider Nurse Practitioner Family | DX: I83.013 Varicose veins of right lower extremity with ulcer of ankle (principal); L97.311 Non-pressure chronic ulcer of right ankle limited to breakdown of skin; I73.9 Peripheral vascular disease, unspecified; Z86.711 Personal history of pulmonary embolism; Z86.718 Personal history of other venous thrombosis and embolism | CPT/HCPCS: 99212 ==

== ENCOUNTER 2024-11-15 14:36 | Outpatient (REF) | payer OTHER, SELFPAY ==
--- NOTE | ~2024-11-15 | US_ITS ---
EXAMINATION: US TRIPLEX LOWER EXTREMITY, RIGHT CLINICAL INFORMATION: History of DVT. COMPARISON: November 25, 2021 with prior thrombosis of the right femoral vein and popliteal vein. TECHNIQUE: Color-flow triplex imaging with spectral analysis and compression Doppler were performed on the right lower extremity. FINDINGS: Respiratory variation, normal compression and augmented flow are noted throughout the interrogated common femoral vein, superficial femoral vein, profunda femoral vein, popliteal vein and midcalf peroneal and posterior tibial venous segments. There is no Pino's cyst. US/US venous duplex LE RT IMPRESSION: No acute deep venous thrombosis involving the right lower extremity. Negative for DVT.. Electronically signed by: Sunil Pino MD 11/15/2024 03:50 PM EDT
== END 2024-11-15 14:37 | disposition home or self-care (01) ==
LOC: HO.US 14:36
PROVIDERS: PCP Physician Assistant; Visit Provider Nurse Practitioner Family
DX: I73.9 Peripheral vascular disease, unspecified (principal); Z86.718 Personal history of other venous thrombosis and embolism
CPT/HCPCS: 93971

== ENCOUNTER → 2024-11-15 14:38 | Outpatient (BNV) | payer OTHER, SELFPAY | PROVIDERS: PCP Physician Assistant; Visit Provider Radiology Diagnostic Radiology | DX: M79.604 Pain in right leg (principal); Z86.718 Personal history of other venous thrombosis and embolism | CPT/HCPCS: 93971 ==

== ENCOUNTER 2024-11-22 09:30 | Outpatient (AMB) | payer OTHER, SELFPAY ==
--- NOTE | 2024-11-22 09:38 | A.OFFPC_ITS ---
Vital Signs 11/22/24 09:44 Height 5 ft 10 in Weight 169 lb BMI 24.2 BP 110/78 Blood Pressure Location Rt brachial Position Sitting Respiration 12 Pulse 63 Pulse Source Pulse Oximeter Pulse Oximetry (%) 100 Oxygen Delivery Method Room Air Intake Visit Reasons: with Gabytalita ulcer Right ankle/walkin visit 11/15 Intake Note: Follow up ulcer on right ankle. Seeing vascular surgeon today. [facility] Visitor Required: No Allergies No Known Allergies Allergy (Verified 11/22/24 11:29) Medication List - Last Reconciled 11/22/24 by Gaby Callaway PA-C amlodipine 10 mg PO DAILY aspirin 81 mg PO DAILY azelastine 1 spray intranasal BID cephalexin 500 mg PO Q8H comp.stocking,knee,long,medium Use daily As directed for right leg gabapentin 100 mg PO TID PRN 7 days hydroxyzine HCl 25 mg PO BID PRN 30 days Tobacco use date assessed: 11/22/24 Dental Screening Dental Screen Date: 11/22/24 Did you have a dental visit in the last 12 months?: No Did you have a dental problem in the last 6 months where you did not have access to dental care?: No Was dental information given to patient?: Patient declined HPI with talita Griffin ulcer Right ankle/walkin visit 11/15 HPI Details Patient is a 44-year-old female with a significant past medical of hyperlipidemia, hypertension, hx of right dvt and anxiety presenting today for a follow up regarding a right ankle pressure ulcer. -she recently followed with my colleague at the walk-in clinic for a right ankle pressure ulcer and was started on cephalexin. She states that she has a couple days left to this antibiotic but it appears to be improving significantly. There is no more redness. The sore is still open however. She has an appointment in an hour from now with vascular surgery. No fevers or chills. Vasc: She does have peripheral vascular disease with varicose veins and wears compression stockings daily. hx of the right leg dvt after an injury in 2014. 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 She states [place] sure how extensive the workup was. She says that they told her that there was no need for anticoagulation. However, recently saw Nephrology who did more extensive workup and she was noted to have abnormal labs. CV: Blood pressures have been normal. She is on amlodipine 10 mg. Her cholesterol is controlled with atorvastatin 20 mg. She has had high blood pressure for at least 10 years. Recently saw Nephrology for a workup of hypertension and more complete labs were done 1.5 cm x 0.5 cm Psych: It is a little worse this winter but overall manageable. Well managed with hydroxyzine prn. Uses it rarely. Derm: Sees JANETH for skin checks Mammogram: UTD Fireperson: [facility] Medical History (Updated 11/22/24 @ 12:00 by Gaby Callaway PA-C) History of pulmonary embolus (PE) DVT of leg (deep venous thrombosis) Skin tag Anxiety Low serum alkaline phosphatase Thrombocytopenia Peripheral vascular disease Peripheral vascular disease Chronic seasonal allergic rhinitis Numerous moles Rash Postphlebitic leg ulcer History of deep venous thrombosis (DVT) of distal vein of right lower extremity Dyslipidemia Essential hypertension Surgical History History of hernia repair History of wisdom tooth extraction Hx of valvuloplasty Family History Father Hypertension Rheumatoid arthritis Mother Hypertension Diabetes Maternal Grandmother Hypertension Diabetes Mental health disorder Paternal Grandmother Mental health disorder Social History Housing: House Alcohol intake: current Patient Tobacco Use Status: Former Tobacco user Years Smoked: 14 years e-Cigarette/Vaping Use: Former Use Second Hand Smoke Exposure: No Substance Use Type: Former Substance User and Marijuana service: No Current occupational status: unemployed 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 1. Little interest or pleasure in doing things: not at all 2. Feeling down, depressed, or hopeless: not at all 3. Trouble falling or staying asleep, or sleeping too much: not at all 4. Feeling tired or having little energy: not at all 5. Poor appetite or overeating: not at all 6. Feeling bad about yourself - or that you are a failure or have let yourself or your family down: not at all 7. Trouble concentrating on things, such as reading the newspaper or watching television: not at all 8. Moving or speaking so slowly that other people could have noticed. Or the opposite - being so fidgety or restless that you have been moving around a lot more than usual: not at all 9. Thoughts that you would be better off or of hurting yourself in some way: not at all Total score: 0 Depression Screening Interpretation: Negative Depression Screening Done: Yes 38420 - PHQ-9 Billing: Yes Source: Developed by Drs. Tee Aden, Perla Miranda, Haja Charles and colleagues, with an educational july from [employer]. Thrive Questionnaire Date Thrive assessed: 11/22/24 I am a: Patient What is your living situation today?: I have a steady place to live Within the past 12 months, did the food you bought not last and you didn't have the money to get more?: Never true Within the past 12 months, did you worry whether your food would run out before you got money to buy more?: Never true Do you have trouble paying for medicines?: No Do you have trouble getting transportation to medical appointments?: No Do you have trouble paying your heating and electricity bill?: No Do you have trouble taking care of your child, family member or friend?: No Do you have trouble with day-to-day activities such as bathing, preparing meals, shopping, managing finances, etc.?: No Are you currently unemployed and looking for a job?: Yes Are you interested in more education?: Yes Please select the resources that you would like help with: None Currently or been in a relationship where the following occur: No concerns reported THRIVE Score: 0 AUDIT C Alcohol Use Questionnaire (AUDIT-C) 1. How often do you have a drink containing alcohol?: 2-3 times a week 2. How many drinks containing alcohol do you have on a typical day when you are drinking?: 3 or 4 3. How often do you have six or more drinks on one occasion?: Less than monthly Total Score: 5 MOOKIE-7 AMB Questionnaire MOOKIE-7 Date MOOKIE - 7 assessed: 11/22/24 Feeling nervous, anxious, or on edge: 0 = Not at all Not being able to stop or control worryin = Not at all Worrying too much about different things: 0 = Not at all Trouble relaxin = Not at all Being so restless that it is hard to sit still: 0 = Not at all Becoming easily annoyed or irritable: 0 = Not at all Feeling afraid as if something awful might happen: 0 = Not at all Total MOOKIE-7 score (0-4 normal; 5-9 mild; 10-14 moderate; 15-21 severe): 0 Source: Developed by Drs. Tee Aden, Perla Miranda, Haja Charlse and colleagues, with an educational july from [employer]. MOOKIE-7 Assessment Billing MOOKIE-7 Assessment Tool: MOOKIE-7 Assessment 31223 Physical exam (Primary Care) Vital Signs: Last Vital Signs Pulse 63 11/22/24 09:44 Resp 12 11/22/24 09:44 BP 110/78 11/22/24 09:44 Pulse Ox 100 11/22/24 09:44 Oxygen Delivery Method Room Air 11/22/24 09:44 BMI result Body Mass Index 24.2 Tobacco/Smoking Status: Tobacco use Status Tobacco use date assessed 11/22/24 11/22/24 09:45 Patient Tobacco Use Status Former Tobacco user 11/22/24 09:45 e-Cigarette/Vaping Use Former Use 11/22/24 09:45 PHQ-9: PHQ-9 Score PHQ-9: Total score 0 11/22/24 09:45 Depression Screening Interpretation: Negative Thrive Assessment: Date of Thrive Assessment Date Thrive assessed 11/22/24 11/22/24 09:45 Currently or been in a relationship where the following occur: No concerns reported Const Orientation/consciousness: patient oriented x3 HENMT Ears: hearing grossly normal bilaterally Neck Thyroid: Thyroid normal Lymphatic: no lymphadenopathy noted Resp Auscultation: clear to auscultation bilaterally Cardio Rate: regular rate Rhythm: regular rhythm Heart sounds: S1 normal heart sound present and S2 normal heart sound present GI Inspection: Yes normal to inspection Palpation (GI): Soft to palpation and Other GI palpation findings present (nontender, no cva tenderness) Auscultation: normoactive bowel sounds Rectal Exam - Female: deferred Skin Other: There is a 1.5 cm by half a cm sore noted on the right medial malleolus. It is open. No surrounding erythema or soft tissue swelling. Nontender. Full range of motion of the joint. Neuro General: patient oriented x3, gait normal and no focal motor deficits Coding Level of Care Code Est Pt Level 4 (70199) Complex EM visit Add On G2211 Diagnoses History of deep venous thrombosis (DVT) of distal vein of right lower extremity Z86.718 History of pulmonary embolus (PE) Z86.711 Venous stasis ulcer of right ankle limited to breakdown of skin with varicose veins I83.013; L97.311 Varicose vein presence: with varicose veins Laterality: right Non-pressure ulcer stage: limited to breakdown of skin Peripheral vascular disease I73.9 Additional Codes MOOKIE-7 Assessment Billing - MOOKIE-7 Assessment Tool: MOOKIE-7 Assessment [id number] ([id number]) PHQ-9 - 67118 - PHQ-9 Billing: Yes ([id number]) Assessment & Plan Assessment & Plan (1) History of deep venous thrombosis (DVT) of distal vein of right lower extremity: Code(s): Z86.718 - Personal history of other venous thrombosis and embolism Category: Medical Plan: Referral to Hematology (2) History of pulmonary embolus (PE): Code(s): Z86.711 - Personal history of pulmonary embolism Category: Medical Plan: As above. (3) Venous ulcer of ankle: Code(s): I83.003 - Varicose veins of unspecified lower extremity with ulcer of ankle; L97.309 - Non-pressure chronic ulcer of unspecified ankle with unspecified severity Category: Medical Qualifiers: Varicose vein presence: with varicose veins Laterality: right Non- pressure ulcer stage: limited to breakdown of skin Qualified Code(s): I83.013 - Varicose veins of right lower extremity with ulcer of ankle; L97.311 - Non- pressure chronic ulcer of right ankle limited to breakdown of skin Plan: Complete antibiotic. Follow with vascular surgery today. (4) Peripheral vascular disease: Comment: Status post stent to right common iliac vein Code(s): I73.9 - Peripheral vascular disease, unspecified Category: Medical Plan: As above. Orders: Referrals Hematology & Oncology Referral Z86.711 - Personal history of pulmonary embolism, Z86.718 - Personal history of other venous thrombosis and embolism
[2024-11-22 09:44] VITALS: BP 110/78; PULSE 63; RESP 12; O2SAT 100; BMI 24.2
== END 2024-11-22 10:09 | disposition home or self-care (01) ==
LOC: HO.HMCFM 09:31
PROVIDERS: PCP Physician Assistant; Visit Provider Physician Assistant
DX: Z86.718 Personal history of other venous thrombosis and embolism (principal); Z86.711 Personal history of pulmonary embolism; I83.013 Varicose veins of right lower extremity with ulcer of ankle; L97.311 Non-pressure chronic ulcer of right ankle limited to breakdown of skin; I73.9 Peripheral vascular disease, unspecified

== ENCOUNTER → 2024-11-22 09:30 | Outpatient (BNVA) | payer OTHER, SELFPAY | PROVIDERS: PCP Physician Assistant; Visit Provider Physician Assistant | DX: I83.013 Varicose veins of right lower extremity with ulcer of ankle (principal); L97.311 Non-pressure chronic ulcer of right ankle limited to breakdown of skin; I73.9 Peripheral vascular disease, unspecified; Z86.718 Personal history of other venous thrombosis and embolism; Z86.711 Personal history of pulmonary embolism | CPT/HCPCS: 96127; 99212 ==

== ENCOUNTER 2024-11-22 11:14 | Outpatient (AMB) | payer OTHER, SELFPAY ==
[2024-11-22 11:22] VITALS: BMI 24.2
--- NOTE | 2024-11-22 11:22 | A.OFFVIS_ITS ---
Vital Signs 11/22/24 11:22 Height 5 ft 10 in Weight 169 lb BMI 24.2 Intake Visit Reasons: Follow up non-healing wound Intake Note: PRN follow up for non-healing wound on Right LE ankle. Started 1 mo ago, went to walk in clinic and was prescribed Abx for infected wound. Is doing daily dressing changes. Pt was advised to use xeroform and states it tends to be working. Wearing compression daily. Integrated Specialist Required: No Accompanied by: Self / Same As Patient Allergies No Known Allergies Allergy (Verified 11/22/24 11:29) HPI HPI Follow up non-healing wound: Details: Carolina, a very pleasant 44 yo female patient and known to this office, is presenting today on concerns of a wound on her right foot. She has a lengthy hx of nonhealing wounds on the right lower extremity. She also has a medical hx pertinent for DVT and bilateral PEs. She states that over a week ago she noticed a small area on the medial aspect of her foot, just below the ankle, that was starting to scab up. She presented to Urgent Care about a week ago when the site began draining some bloody as well as yellow/green discharge. Prior to that she had been keeping it clean and dry and covered with a bandage. She states the area around the wound was red and her foot was swollen. She was given Keflex and the site was covered with Xeroform, with instructions to change it daily. An US was done, which was negative for any DVTs. She states that the site has gotten much smaller with less redness and swelling. She denies any pain at the site. She continues to wear her compression stockings, 30-40mm, daily. She has alana rns that it will open up again/get worse and she starts working soon, at a job where she will be on her feet all day. [facility] Medical History History of pulmonary embolus (PE) DVT of leg (deep venous thrombosis) Skin tag Anxiety Low serum alkaline phosphatase Thrombocytopenia Peripheral vascular disease Peripheral vascular disease Chronic seasonal allergic rhinitis Numerous moles Rash Postphlebitic leg ulcer History of deep venous thrombosis (DVT) of distal vein of right lower extremity Dyslipidemia Essential hypertension Surgical History History of hernia repair History of wisdom tooth extraction Hx of valvuloplasty Family History Father Hypertension Rheumatoid arthritis Mother Hypertension Diabetes Maternal Grandmother Hypertension Diabetes Mental health disorder Paternal Grandmother Mental health disorder Social History Housing: House Alcohol intake: current Patient Tobacco Use Status: Former Tobacco user Years Smoked: 14 years e-Cigarette/Vaping Use: Former Use Second Hand Smoke Exposure: No Substance Use Type: Former Substance User and Marijuana service: No Current occupational status: unemployed 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 Cognitive needs: No Hearing needs: No Vision needs: No Review of Systems Const Reports as per HPI and Denies weakness ENT Reports Normal hearing present and Denies dizziness Card Reports as per HPI, Denies chest pain, Denies chest pain at rest, Denies chest pain with activity, Denies dyspnea and Denies dyspnea on exertion Resp Reports as per HPI, Denies cough, Denies dyspnea and Denies dyspnea on exertion GI Reports as per HPI, Denies abdominal pain, Denies nausea and Denies vomiting Musc Denies numbness Skin/Breast Reports as per HPI, Denies erythema and Denies wounds Neuro Reports Normal hearing present, Denies dizziness, Denies numbness, Denies Sensory deficit (Neuro) and Denies weakness Psych Reports no additional complaints Endo Reports no additional complaints Physical Exam Vital Signs: BMI result Body Mass Index 24.2 Const General: healthy appearing and no acute distress Orientation/consciousness: patient oriented x3 HEENT Head: Yes normal to inspection Ears: hearing grossly normal bilaterally Mouth: Normal oral and palatal mucosa present Resp Effort & Inspection: normal respiratory effort and able to speak in complete sentences Auscultation: clear to auscultation bilaterally Cardio Jugular venous distension: no JVD Rate: regular rate Rhythm: regular rhythm Heart sounds: S1 normal heart sound present and S2 normal heart sound present Bruits: no abdominal aortic bruits, no carotid bruits, no femoral bruits and no renal bruits Peripheral pulses: Peripheral pulses 2+ throughout GI Inspection: Yes normal to inspection Palpation (GI): No Abdominal aortic bruit present Skin General skin exam: no rashes or lesions noted Wounds: no wounds Hair: normal Neuro General: patient oriented x3 Cranial nerves: Yes Normal hearing present Cognition (Neuro): normal cognition Gait exam (Neuro): Normal gait present Motor exam (neuro): 5/5 motor strength present throughout Sensory Exam: No Sensory deficit (Neuro) Extrem Other: Right medial ankle/foot: wound, scabbed over, measuring 0.9cmx0.5cm. No drainage or bleeding noted. No surrounding erythema or swelling noted. Palpable DP pulse. General: Yes normal to inspection, Yes full ROM, Yes capillary refill normal and Yes normal gait Assessment & Plan Assessment & Plan (1) Venous ulcer of ankle: Code(s): I83.003 - Varicose veins of unspecified lower extremity with ulcer of ankle; L97.309 - Non-pressure chronic ulcer of unspecified ankle with unspecified severity Category: Medical Qualifiers: Varicose vein presence: with varicose veins Laterality: right Non- pressure ulcer stage: limited to breakdown of skin Qualified Code(s): I83.013 - Varicose veins of right lower extremity with ulcer of ankle; L97.311 - Non- pressure chronic ulcer of right ankle limited to breakdown of skin Plan: Carolina is presenting today for concerns of a wound on the medial aspect of her ankle/foot. She states she noticed it >1w ago and went to when she noticed it draining blood and yellow/green drainage. She was placed on Keflex and told to dress it with Xeroform and a bandage daily. She states she is following up with us to prevent further worsening of the wound. The wound is scabbing over and there is no surrounding erythema. We discussed to complete the full course of abx. We discussed that she can continue with the Xeroform for another couple of days and then switch to bacitracin/Neosporin (preferably bacitracin) and a bandage. We discussed that if it worsens parra there are any changes, to reach back out to us. She is concerned because she will be starting a job for the next 7w where she will be standing; I discussed with her to keep the site clean and dry and bandaged. She will continue to wear her compression socks as well. We discussed to follow up as needed. Thank you for allowing us to participate in the patient's care. If there are any questions or concerns, please do not hesitate to reach out to us. Coding Level of Care Code Est Pt Level 4 (92158) Diagnoses Venous stasis ulcer of right ankle limited to breakdown of skin with varicose veins I83.013; L97.311 Varicose vein presence: with varicose veins Laterality: right Non-pressure ulcer stage: limited to breakdown of skin
== END 2024-11-22 12:13 | disposition home or self-care (01) ==
LOC: HO.HVS 11:15
PROVIDERS: PCP Physician Assistant; Visit Provider Physician Assistant Surgical
DX: I83.013 Varicose veins of right lower extremity with ulcer of ankle (principal); L97.311 Non-pressure chronic ulcer of right ankle limited to breakdown of skin
CPT/HCPCS: 99214

== ENCOUNTER → 2024-12-17 14:57 | Outpatient (BNV) | payer OTHER, SELFPAY | PROVIDERS: PCP Physician Assistant; Referring Provider Physician Assistant; Visit Provider Nurse Practitioner Family | DX: Z86.711 Personal history of pulmonary embolism (principal) | CPT/HCPCS: 99204 ==

== ENCOUNTER 2025-01-10 10:18 | Outpatient (AMB) | payer OTHER, SELFPAY ==
--- NOTE | 2025-01-10 10:23 | A.OFFPC_ITS ---
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 Vasc: She does have peripheral vascular disease with varicose veins and wears compression stockings daily. hx of the right leg dvt after an injury in 2014. 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 She states she did have a full workup from hematology when she was down [facility] but is now currently seeing Hematology locally as she is not sure how thorough the workup was down [facility]. She says that they told her that there was no need for anticoagulation. Recently saw vascular surgery for an ulcer of the right lower leg. States that it has finally completely healed and resolved. CV: Blood pressures have been normal however, today it is elevated. She says that she is stressed as she has to go to work right after this. States that it is her last day today. She has a blood pressure cuff at home in his going to keep track. She states that her blood pressures have been very well managed with the amlodipine 10 mg. Her cholesterol is controlled with atorvastatin 20 mg. She has had high blood pressure for at least 10 years. Recently saw Nephrology for a workup of hypertension and more complete labs were done Heme: following with Hematology for workup. GI: Has been noted to have elevated LFTs and fatty liver. Has an appointment with GI in January. States that she eats a relatively healthy diet and limits processed foods and fatty foods. She does drink wine but states that she does not drink much and uses it sparingly. Psych: It is a little worse this winter but overall manageable. Well managed with hydroxyzine prn. Uses it rarely. Derm: Sees JANETH for skin checks Mammogram: UTD, 12/24 Physician Industrial: following with Terri MADISONH Medical History (Updated 12/17/24 @ 15:40 by Shiela Myers NP) History of pulmonary embolus (PE) DVT of leg (deep venous thrombosis) Skin tag Anxiety Low serum alkaline phosphatase Thrombocytopenia Peripheral vascular disease Peripheral vascular disease Chronic seasonal allergic rhinitis Numerous moles Rash Postphlebitic leg ulcer History of deep venous thrombosis (DVT) of distal vein of right lower extremity Dyslipidemia Essential hypertension Surgical History History of hernia repair History of wisdom tooth extraction Hx of valvuloplasty Family History Father Hypertension Rheumatoid arthritis Mother Hypertension Diabetes Maternal Grandmother Hypertension Diabetes Mental health disorder Paternal Grandmother Mental health disorder Social History (Updated 01/10/25 @ 10:28 by Kristy Hagan CMA) Household Members: Family Housing: House Alcohol intake: current Comment: 2 glasses of wine per day Patient Tobacco Use Status: Former Tobacco user Tobacco use type: Cigarette Years Smoked: 14 years e-Cigarette/Vaping Use: Former Use Second Hand Smoke Exposure: No Substance Use Type: Former Substance User service: No Current occupational status: unemployed 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 Cognitive needs: No Hearing needs: No Vision needs: No Questionnaire Thrive Questionnaire Date Thrive assessed: 11/22/24 I am a: Patient What is your living situation today?: I have a steady place to live Within the past 12 months, did the food you bought not last and you didn't have the money to get more?: Never true Within the past 12 months, did you worry whether your food would run out before you got money to buy more?: Never true Do you have trouble paying for medicines?: No Do you have trouble getting transportation to medical appointments?: No Do you have trouble paying your heating and electricity bill?: No Do you have trouble taking care of your child, family member or friend?: No Do you have trouble with day-to-day activities such as bathing, preparing meals, shopping, managing finances, etc.?: No Are you currently unemployed and looking for a job?: Yes Are you interested in more education?: Yes Please select the resources that you would like help with: None Currently or been in a relationship where the following occur: No concerns reported THRIVE Score: 0 AUDIT C Alcohol Use Questionnaire (AUDIT-C) 1. How often do you have a drink containing alcohol?: 4 or more times a week 2. How many drinks containing alcohol do you have on a typical day when you are drinking?: 1 or 2 3. How often do you have six or more drinks on one occasion?: Never Total Score: 4 MOOKIE-7 AMB Questionnaire MOOKIE-7 Date MOOKIE - 7 assessed: 11/22/24 Source: Developed by Drs. Tee Aden, Perla Miranda, Haja Charles and colleagues, with an educational july from [employer]. Physical exam (Primary Care) Vital Signs: Last Vital Signs Temp 99.2 F 01/10/25 10:25 Pulse 66 01/10/25 10:25 Resp 14 01/10/25 10:25 BP 148/92 H 01/10/25 10:28 Pulse Ox 99 01/10/25 10:25 Oxygen Delivery Method Room Air 01/10/25 10:25 BMI result Body Mass Index 24.0 Tobacco/Smoking Status: Tobacco use Status Tobacco use date assessed 01/10/25 01/10/25 10:29 Patient Tobacco Use Status Former Tobacco user 01/10/25 10:29 Tobacco use type Cigarette 01/10/25 10:29 e-Cigarette/Vaping Use Former Use 01/10/25 10:29 Thrive Assessment: Date of Thrive Assessment Date Thrive assessed 11/22/24 01/10/25 10:29 Currently or been in a relationship where the following occur: No concerns reported Const Orientation/consciousness: patient oriented x3 HENMT Ears: hearing grossly normal bilaterally Neck Thyroid: Thyroid normal Lymphatic: no lymphadenopathy noted Resp Auscultation: clear to auscultation bilaterally Cardio Rate: regular rate Rhythm: regular rhythm Heart sounds: S1 normal heart sound present and S2 normal heart sound present GI Inspection: Yes normal to inspection Palpation (GI): Soft to palpation and Other GI palpation findings present (nontender, no cva tenderness) Auscultation: normoactive bowel sounds Rectal Exam - Female: deferred Skin General skin exam: no rashes or lesions noted Neuro General: patient oriented x3, gait normal and no focal motor deficits Coding Level of Care Code Est Pt Level 4 (21570) Complex EM visit Add On G2211 Diagnoses Essential hypertension I10 Dyslipidemia E78.5 History of deep venous thrombosis (DVT) of distal vein of right lower extremity Z86.718 Elevated LFTs R79.89 Assessment & Plan Assessment & Plan (1) Essential hypertension: Code(s): I10 - Essential (primary) hypertension Category: Medical Plan: Elevated today. She is going to send me a message with her blood pressures. We will bring her back in a couple of weeks for a recheck with the nurse. (2) Dyslipidemia: Code(s): E78.5 - Hyperlipidemia, unspecified Category: Medical Plan: Continue atorvastatin. Labs ordered. (3) History of deep venous thrombosis (DVT) of distal vein of right lower extremity: Code(s): Z86.718 - Personal history of other venous thrombosis and embolism Category: Medical Plan: Following with Hematology (4) Elevated LFTs: Code(s): R79.89 - Other specified abnormal findings of blood chemistry Category: Medical Plan: Has an appointment arranged with GI. We will continue to monitor. Orders: Orders Complete Blood Count Auto Diff Today E78.5 - Hyperlipidemia, unspecified, I10 - Essential (primary) hypertension, R79.89 - Other specified abnormal findings of blood chemistry, Z86.718 - Personal history of other venous thrombosis and embolism Lipid Panel Today E78.5 - Hyperlipidemia, unspecified, I10 - Essential (primary) hypertension, R79.89 - Other specified abnormal findings of blood chemistry, Z86.718 - Personal history of other venous thrombosis and embolism Comprehensive [place]. Panel Fast Today E78.5 - Hyperlipidemia, unspecified, I10 - Essential (primary) hypertension, R79.89 - Other specified abnormal findings of blood chemistry, Z86.718 - Personal history of other venous thrombosis and embolism TSH reflex Free T4 Today E78.5 - Hyperlipidemia, unspecified, I10 - Essential (primary) hypertension, R79.89 - Other specified abnormal findings of blood chemistry, Z86.718 - Personal history of other venous thrombosis and embolism Patient Instructions: labs a few days prior to appointment
[2025-01-10 10:25] VITALS: BP 146/94; PULSE 66; RESP 14; TEMP 37.3; O2SAT 99; BMI 24.0
[2025-01-10 10:28] VITALS: BP 148/92
== END 2025-01-10 10:47 | disposition home or self-care (01) ==
LOC: HO.HMCFM 10:19
PROVIDERS: PCP Physician Assistant; Visit Provider Physician Assistant
DX: I10 Essential (primary) hypertension (principal); E78.5 Hyperlipidemia, unspecified; Z86.718 Personal history of other venous thrombosis and embolism; R79.89 Other specified abnormal findings of blood chemistry

== ENCOUNTER → 2025-01-10 10:18 | Outpatient (BNVA) | payer OTHER, SELFPAY | PROVIDERS: PCP Physician Assistant; Visit Provider Physician Assistant | DX: I10 Essential (primary) hypertension (principal); E78.5 Hyperlipidemia, unspecified; F41.9 Anxiety disorder, unspecified; I73.9 Peripheral vascular disease, unspecified; I83.90 Asymptomatic varicose veins of unspecified lower extremity; R79.89 Other specified abnormal findings of blood chemistry; Z86.718 Personal history of other venous thrombosis and embolism | CPT/HCPCS: 99212 ==

== ENCOUNTER 2025-02-11 15:08 | Outpatient (AMB) | payer OTHER, SELFPAY ==
[2025-02-11 15:16] VITALS: BP 110/78; PULSE 78; TEMP 36.9; O2SAT 99; BMI 23.3
--- NOTE | 2025-02-11 15:16 | AM.OFFWIN_ITS ---
Intake Vital Signs 3 02/11/25 15:16 Height 5 ft 10 in Weight 162 lb 8 oz BMI 23.3 BP 110/78 Blood Pressure Location Lt brachial Position Sitting Pulse 78 Pulse Source Pulse Oximeter Temp 98.5 F Temp Source Oral Pulse Oximetry (%) 99 Oxygen Delivery Method Room Air Intake Visit Reasons: EP Venous Ulcer on LT leg? 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 She believes her Cut might have scratched her Foot. Wound is draining brownish fluid - erythematous edges. She does have h/o non healing Venous Ulcers and sees [facility] surgery clinic - last seen 10/2024. [facility] Medical History (Updated 02/11/25 @ 16:00 by Shira Alejandra NP) Cellulitis of skin History of pulmonary embolus (PE) DVT of leg (deep venous thrombosis) Skin tag Anxiety Low serum alkaline phosphatase Thrombocytopenia Peripheral vascular disease Peripheral vascular disease Chronic seasonal allergic rhinitis Numerous moles Rash Postphlebitic leg ulcer History of deep venous thrombosis (DVT) of distal vein of right lower extremity Dyslipidemia Essential hypertension Surgical History History of hernia repair History of wisdom tooth extraction Hx of valvuloplasty Family History Father Hypertension Rheumatoid arthritis Mother Hypertension Diabetes Maternal Grandmother Hypertension Diabetes Mental health disorder Paternal Grandmother Mental health disorder Social History (Updated 01/10/25 @ 10:28 by Kristy Hagan CMA) Household Members: Family Housing: House Alcohol intake: current Comment: 2 glasses of wine per day Patient Tobacco Use Status: Former Tobacco user Tobacco use type: Cigarette Years Smoked: 14 years e-Cigarette/Vaping Use: Former Use Second Hand Smoke Exposure: No Substance Use Type: Former Substance User Patient : No service: No Current occupational status: unemployed 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 Cognitive needs: No Hearing needs: No Vision needs: No Female Reproductive History Menstrual Date of last menstrual period: 01/26/25 Review of Systems Const All systems reviewed & are unremarkable except as noted in HPI and below Physical Exam Vital Signs: Last Vital Signs Temp 98.5 F 02/11/25 15:16 Pulse 78 02/11/25 15:16 BP 110/78 02/11/25 15:16 Pulse Ox 99 02/11/25 15:16 Oxygen Delivery Method Room Air 02/11/25 15:16 BMI result Body Mass Index 23.3 Const General: no acute distress Orientation/consciousness: patient oriented x3 Resp Effort & Inspection: normal respiratory effort Cardio Heart sounds: S1 normal heart sound present and S2 normal heart sound present Neuro General: patient oriented x3, gait normal and moves all extremities Extrem Ankle/foot/toe images: 2 1. Small open wound with erythematous edges and Dark Center, brownish discharge. Mild tenderness. Psych Speech and movement: Normal speech and movement present Assessment & Plan Assessment & Plan (1) Cellulitis of skin: Code(s): L03.90 - Cellulitis, unspecified Plan: Ordered Keflex for 5 days Clean wound; Applied Bacitracin Ointment and covered with Bandage. Keep skin clean and dry. F/U with PCP Medications: New 2 cephalexin 500 mg PO BID 10 caps 0RF 5 days L03.90 - Cellulitis, unspecified Coding Level of Care Code Est Pt Level 4 (73651) Diagnoses Cellulitis of skin L03.90 Time Spent (min) 20
== END 2025-02-11 16:02 | disposition home or self-care (01) ==
PROVIDERS: PCP Physician Assistant; Visit Provider Nurse Practitioner Family
DX: L03.90 Cellulitis, unspecified (principal)

== ENCOUNTER → 2025-02-11 15:08 | Outpatient (BNVA) | payer OTHER, SELFPAY | PROVIDERS: PCP Physician Assistant; Visit Provider Nurse Practitioner Family | DX: L03.90 Cellulitis, unspecified (principal) | CPT/HCPCS: 99212 ==

== ENCOUNTER 2025-02-21 11:35 | Outpatient (REF) | payer OTHER, SELFPAY ==
[2025-02-21 14:10] LABS: MANUAL DIFF FLAG NO
[2025-02-21 14:12] LABS: Hematocrit 35.9 % (37.0-47.0); Hemoglobin 13.2 g/dl (12.0-16.0); Imm Gran Abs Auto 0.01 X10*3/uL (0.00-0.03); Imm Gran Pct Auto 0.2 % (0.0-0.4); Lymphocytes Absolute Auto 1.4 X10*3/uL (1.2-4.9); Mean Corpuscular HGB Conc 36.8 g/dl (31.0-35.0); Mean Corpuscular Hemoglobin 29.5 pg (27.0-33.0); Mean Corpuscular Volume 80.1 fL (80.0-98.0); NRBC Abs Auto 0.000 X10*3/uL (0.0-0.012); NRBC Pct Auto 0.0 /100WBC (0.0-0.2); Platelet Count 176 X10*3/uL (160-400); Red Blood Count 4.48 X10*6/uL (4.20-5.50); White Blood Count 4.6 X10*3/uL (4.8-10.8)
[2025-02-21 14:37] LABS: Alanine Aminotransferase 29 U/L (0-31); Albumin Level 4.3 g/dL (3.5-5.0); Alkaline Phosphatase 25 U/L (39-117); Anion Gap 11 (12-20); Aspartate Amino Transferase 38 U/L (5-31); Blood Urea Nitrogen 13 mg/dL (9-16); Calcium 9.4 mg/dL (8.4-10.2); Carbon Dioxide 29 mmol/L (22-29); Chloride 100 mmol/L (96-108); Cholesterol 237 mg/dL (<200); Estimated Glomerular Filt Rate 54; HDL Cholesterol 71 mg/dL (>40); Potassium 3.1 mmol/L (3.3-5.1); Sodium 137 mmol/L (135-145); Total Protein 7.1 g/dL (6.5-8.0); Triglycerides 95 mg/dL (<150)
== END 2025-02-21 11:36 | disposition home or self-care (01) ==
LOC: HO.WFDLDS 11:35
PROVIDERS: Visit Provider Physician Assistant
DX: I10 Essential (primary) hypertension (principal); R79.89 Other specified abnormal findings of blood chemistry; E78.5 Hyperlipidemia, unspecified; Z86.718 Personal history of other venous thrombosis and embolism
CPT/HCPCS: 36415; 80053; 80061; 84443; 85025

== ENCOUNTER 2025-02-26 11:08 | Outpatient (REF) | payer OTHER, SELFPAY ==
[2025-02-26 13:27] LABS: Ferritin 68 ng/mL (10-250)
[2025-02-27 03:34] LABS: HIV Num 1 0.16 S/CO (0.00-0.99)
== END 2025-02-26 11:09 | disposition home or self-care (01) ==
LOC: HO.LAB 11:08
PROVIDERS: PCP Physician Assistant; Visit Provider Nurse Practitioner
DX: R79.89 Other specified abnormal findings of blood chemistry (principal); F11.20 Opioid dependence, uncomplicated
CPT/HCPCS: 36415; 80321; 81596; 82105; 82390; 82728; 86015; 86381; 87389; 99202

== ENCOUNTER 2025-02-26 11:08 | Outpatient (AMB) | payer OTHER, SELFPAY ==
[2025-02-26 11:10] VITALS: BP 140/90; PULSE 70; BMI 23.2
--- NOTE | 2025-02-26 11:10 | MHC.OFFVIS ---
Vital Signs 02/26/25 11:10 Height 5 ft 10 in Weight 161 lb 13.109 oz BMI 23.2 BP 140/90 H Blood Pressure Location Rt brachial Position Sitting Pulse 70 Intake Visit Reasons: Elevated LFT, Fatty Liver Intake Note: New patient in office today for elevated LFT and fatty liver. CC: Patient c/o constipation, she states that she usually has a BM every 3-4 days. She states that she takes smooth move tea usually at bedtime, and is able to have a BM the following day. She also reports abdominal bloating, and a little acid reflux . Patient states that she is currently being tested for autoimmune diseae. Surgical Services Asst Required: No Accompanied by: Self / Same As Patient Allergies No Known Allergies Allergy (Verified 02/26/25 11:24) HPI HPI Elevated LFT, Fatty Liver: Details: 44-year-old female here for initial evaluation of transaminitis. She is referred by Gaby Callaway. PMX Allergic rhinitis History of DVT/PE Hypertension High cholesterol Venous ulcer of the ankle Generalized anxiety disorder with panic attacks Varicose veins PVD * SURGICAL HISTORY Hernia repair [place] tooth extraction Valvuloplasty * ALLERGIES: NKDA * Motility Count LABS: Laboratory Tests 02/21/25 11:37 WBC 4.6 L Hgb 13.2 Hct 35.9 L MCV 80.1 MCH 29.5 Plt Count 176 Estimated GFR 54 Total Bilirubin 1.4 H AST 38 H ALT 29 Alkaline Phosphatase 25 L TSH 1.34 Laboratory Tests 12/31/22 08/24/24 12/17/24 11:40 09:45 16:27 Plt Count 122 L D 155 L 149 L Laboratory Tests 08/24/24 10/03/24 12/17/24 09:45 11:47 16:27 JEFFERY Screen POSITIVE A JEFFERY Titer 1:80 H JEFFERY Pattern Nuclear, Homogeneous A Hepatitis A IgM Ab Nonreactive Hep Bs Antibody REACTIVE Hepatitis C Ab (EIA) Nonreactive ULTRASOUND OF THE ABDOMEN 09/08/2024 Findings: The visualized pancreas is normal. The aorta and inferior vena cava are normal caliber. The appearance of the liver suggests fatty infiltration without focal lesion. There is no intrahepatic bile duct dilatation. The common duct is 2.3 mm in diameter. The gallbladder is normal. There is no sonographic Mchugh sign. The main portal vein is antegrade. The right kidney is 11.5 cm in length. The left kidney is 10.8 cm in length. The spleen is normal. No ascites. IMPRESSION: 1. Hepatic steatosis. TODAYS VISIT There is no known FHX of liver disease; but she will check in the family. She admits to drinking ETOH, She tries to drink only a couple of days a week but admits I used to drink more. She usually drinks wine and during the pandemic drank more - Heaviest she would drink 6 glasses or a bottle and a half, now she keeps it to 2-3 glasses and at times will have cocktails. She has severe anxiety and drinks to relax at night, she was on a medley of medications pre teen that made her feel crazy, but she does not remember the names of the medications. She will see if her mother remembers. This may be important going forward. She is currently on hydroxyzine and prn gabapentin. She is not obese. Still, she could have some genetic fatty liver component overlapped with ETOH. She was educated about this. I am trying to lay the ground work because her labs certainly point towards alcohol toxicity as the most likely cause particularly when paired with her intermittent thrombocytopenia. Of course will make sure there is no other reversible causes, but I think treating underlying anxiety maybe imperative. ROV 6 weeks. [facility] Medical History (Updated 02/26/25 @ 12:01 by ALYCE Montes) Cellulitis of skin History of pulmonary embolus (PE) DVT of leg (deep venous thrombosis) Skin tag Anxiety Low serum alkaline phosphatase Thrombocytopenia Peripheral vascular disease Peripheral vascular disease Chronic seasonal allergic rhinitis Numerous moles Rash Postphlebitic leg ulcer History of deep venous thrombosis (DVT) of distal vein of right lower extremity Dyslipidemia Essential hypertension Surgical History History of hernia repair History of wisdom tooth extraction Hx of valvuloplasty Family History Father Hypertension Rheumatoid arthritis Mother Hypertension Diabetes Maternal Grandmother Hypertension Diabetes Mental health disorder Paternal Grandmother Mental health disorder Social History (Updated 01/10/25 @ 10:28 by Kristy Hagan CMA) Household Members: Family Housing: House Alcohol intake: current Comment: 2 glasses of wine per day Patient Tobacco Use Status: Former Tobacco user Tobacco use type: Cigarette Years Smoked: 14 years e-Cigarette/Vaping Use: Former Use Second Hand Smoke Exposure: No Substance Use Type: Former Substance User service: No Current occupational status: unemployed 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 Cognitive needs: No Hearing needs: No Vision needs: No Review of Systems Const Denies fatigue, Denies fever(s), Denies night sweats, Denies poor appetite and Denies weight loss ENT Reports Normal hearing present, Denies dental pain, Denies dysphagia, Denies hearing loss, Denies mouth pain, Denies odynophagia, Denies throat swelling, Denies tongue swelling and Reports other (Dentition adequate) Card Reports no additional complaints Resp Reports no additional complaints GI Details: Denies abdominal pain, Denies melena, Denies bloating, Denies hematochezia, Denies constipation, Denies GI cramping, Denies dysphagia, Denies excessive flatus, Denies early satiety, Denies heartburn, Denies diarrhea, Denies nausea, Denies odynophagia, Denies vomiting and Denies hematemesis Skin/Breast Denies pruritus, Denies lesions, Denies rash and Denies jaundice Neuro Reports Normal hearing present and Denies Abnormal speech present Psych Reports anxiety and Reports panic attacks Endo Denies fatigue Aller/Immun Denies throat swelling and Denies tongue swelling Physical Exam Vital Signs: BMI result Body Mass Index 23.2 Const General: cooperative, no acute distress, well developed and well groomed Nutritional Appearance: well nourished, obese and overweight Orientation/consciousness: oriented to person, oriented to place and oriented to time Limitations: No language barrier, ambulation with cane, ambulation with walker and wheelchair HEENT Head: Yes normocephalic and Yes atraumatic Eyes General: appearance normal, both eyes and all related structures Pupils: Equal, round and reactive pupils present Neck Neck: Yes normal visual inspection and Yes no lymphadenopathy Thyroid: Thyroid normal Resp Effort & Inspection: normal respiratory effort and able to speak in complete sentences Auscultation: clear to auscultation bilaterally Cardio Rate: regular rate Rhythm: regular rhythm Heart sounds: Normal, physiologic split S2 sound present Peripheral pulses: radial pulses present and posterior tibial pulses present GI Inspection: No distended and No Abdominal panniculus present Palpation (GI): Soft to palpation, nontender, no guarding, not rigid and No hepatosplenomegaly present Percussion: Yes normal to percussion Auscultation: normal bowel sounds Rectal Exam - Female: deferred Skin General skin exam: no rashes or lesions noted, turgor normal, skin not dry, no jaundice, No spider nevi and no striae Rashes: no rashes Nails: normal Neuro General: oriented to person, oriented to place and oriented to time Cranial nerves: Yes Equal, round and reactive pupils present and Yes Normal hearing present Speech: No Abnormal speech present Extrem General: Yes normal to inspection, No clubbing, No cyanosis and No edema Psych Appearance: grossly normal and well kempt Mental Status: mental status grossly normal Speech and movement: Normal speech and movement present Affect: Anxious affect present Attitude: cooperative Thought process: Normal thought process present and not confabulating Thought content: Normal thought content present Insight: Limited insight present (Psych) Judgement: Limited judgement present (Psych) Assessment & Plan Assessment & Plan (1) Elevated LFTs: Comment: BASELINE LABS 11:37 WBC 4.6 L Hgb 13.2 Hct 35.9 L MCV 80.1 MCH 29.5 Plt Count 176 Estimated GFR 54 Total Bilirubin 1.4 H AST 38 H ALT 29 Alkaline Phosphatase 25 L TSH 1.34 12/31/2300/ [id number]:[id number]:[id number]:27 Plt Count 122 L D 155 L 149 L 08/24/2502/ 09:4511:4716:27 JEFFERY Screen POSITIVE A JEFFERY Titer 1:80 H JEFFERY Pattern Nuclear, Homogeneous A Hepatitis A IgM Ab Nonreactive Hep Bs Antibody REACTIVE Hepatitis C Ab (EIA) Nonreactive CURRENT LABS ULTRASOUND OF THE ABDOMEN 09/08/2024 Findings: The visualized pancreas is normal. The aorta and inferior vena cava are normal caliber. The appearance of the liver suggests fatty infiltration without focal lesion. There is no intrahepatic bile duct dilatation. The common duct is 2.3 mm in diameter. The gallbladder is normal. There is no sonographic Mchugh sign. The main portal vein is antegrade. The right kidney is 11.5 cm in length. The left kidney is 10.8 cm in length. The spleen is normal. No ascites. IMPRESSION: 1. Hepatic steatosis Code(s): R79.89 - Other specified abnormal findings of blood chemistry Category: Medical (2) Alcohol dependence: Code(s): F10.20 - Alcohol dependence, uncomplicated Category: Medical Plan There is no known FHX of liver disease; but she will check in the family. She admits to drinking ETOH, She tries to drink only a couple of days a week but admits I used to drink more. She usually drinks wine and during the pandemic drank more - Heaviest she would drink 6 glasses or a bottle and a half, now she keeps it to 2-3 glasses and at times will have cocktails. She has severe anxiety and drinks to relax at night, she was on a medley of medications pre teen that made her feel crazy, but she does not remember the names of the medications. She will see if her mother remembers. This may be important going forward. She is currently on hydroxyzine and prn gabapentin. She is not obese. Still, she could have some genetic fatty liver component overlapped with ETOH. She was educated about this. I am trying to lay the ground work because her labs certainly point towards alcohol toxicity as the most likely cause particularly when paired with her intermittent thrombocytopenia. Of course will make sure there is no other reversible causes, but I think treating underlying anxiety maybe imperative. Even though she is cutting back, which is certainly better for her health, she still exceeding the recommended daily intake of alcohol for a female. ROV 6 weeks. Orders: Orders Smooth Muscle Antibody Today R7.89 - Other specified abnormal findings of blood chemistry Alpha Fetoprotein Today R79.89 - Other specified abnormal findings of blood chemistry Ferritin Today R79.89 - Other specified abnormal findings of blood chemistry Mitochondrial Antibody Today R79.89 - Other specified abnormal findings of blood chemistry Phosphatidylethanol, Blood Today R79.89 - Other specified abnormal findings of blood chemistry HIV Ab/Ag Today R7.89 - Other specified abnormal findings of blood chemistry Ceruloplasmin Today R79.89 - Other specified abnormal findings of blood chemistry Liver Fibrosis Pnl Today R7. - Other specified abnormal findings of blood chemistry Coding Level of Care Code New Pt Level 3 (57001) Diagnoses Elevated LFTs R7. Alcohol dependence F10.20
== END 2025-02-26 11:42 | disposition home or self-care (01) ==
LOC: HO.HGI 11:09
PROVIDERS: PCP Physician Assistant; Visit Provider Nurse Practitioner
DX: R79.89 Other specified abnormal findings of blood chemistry (principal); F10.20 Alcohol dependence, uncomplicated
CPT/HCPCS: 99203

== ENCOUNTER 2025-02-27 11:04 | Outpatient (AMB) | payer OTHER, SELFPAY ==
--- NOTE | 2025-02-27 11:10 | MHC.PC.OV ---
Vital Signs 02/27/25 11:13 Height 5 ft 10 in Weight 162 lb 4 oz BMI 23.3 BP 130/84 Blood Pressure Location Rt brachial Position Sitting Respiration 12 Pulse 71 Pulse Source Pulse Oximeter Temp 98.7 F Temp Source Oral Pulse Oximetry (%) 100 Oxygen Delivery Method Room Air Intake Visit Reasons: bp check Intake Note: Blood pressure follow up. Saw GI yesterday. Went Metrology Manager Required: No Allergies No Known Allergies Allergy (Verified 02/27/25 11:11) Medication List - Last Reconciled 02/27/25 by Gaby Callaway PA-C amlodipine 10 mg PO DAILY aspirin 81 mg PO DAILY azelastine 1 spray intranasal BID cephalexin 500 mg PO QID comp.stocking,knee,long,medium Use daily As directed for right leg gabapentin 100 mg PO TID PRN 7 days hydrochlorothiazide 25 mg PO QAM hydroxyzine HCl 25 mg PO BID PRN 30 days Tobacco use date assessed: 02/27/25 Dental Screening Dental Screen Date: 11/22/24 HPI bp check HPI Details Patient is a 45-year-old female with a significant past medical of hyperlipidemia, hypertension, hx of right dvt and anxiety presenting today for a follow up. Vasc: She was recently seen at the walk in for cellulitis left lower leg from ulcer. She was given keflex for 5 days twice a day. It did help initially. She states today it is red but not painful. She does have peripheral vascular disease with varicose veins and wears compression stockings daily. hx of the right leg dvt after an injury in 2014. 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 She states [place] seeing Hematology locally for a further workup. d. CV: Her blood pressures have been very well managed with the amlodipine 10 mg. Her cholesterol is controlled with atorvastatin 20 mg. She has had high blood pressure for at least 10 years. Recently saw Nephrology for a workup of hypertension and more complete labs were done Heme: following with Hematology for workup. GI: Has been noted to have elevated LFTs and fatty liver. 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 She was encouraged to reduce/eliminate alcohol. Psych: She tells me today that she has been taking the hydroxyzine daily as she does have a lot of underlying anxiety. 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 [facility] Medical History Cellulitis of skin History of pulmonary embolus (PE) DVT of leg (deep venous thrombosis) Skin tag Anxiety Low serum alkaline phosphatase Thrombocytopenia Peripheral vascular disease Peripheral vascular disease Chronic seasonal allergic rhinitis Numerous moles Rash Postphlebitic leg ulcer History of deep venous thrombosis (DVT) of distal vein of right lower extremity Dyslipidemia Essential hypertension Surgical History History of hernia repair History of wisdom tooth extraction Hx of valvuloplasty Family History Father Hypertension Rheumatoid arthritis Mother Hypertension Diabetes Maternal Grandmother Hypertension Diabetes Mental health disorder Paternal Grandmother Mental health disorder Maternal Grandfather Lung cancer Paternal Aunt Lupus (systemic lupus erythematosus) Social History Household Members: Family Housing: House Alcohol intake: current Comment: 2 glasses of wine per day Patient Tobacco Use Status: Former Tobacco user Tobacco use type: Cigarette Years Smoked: 14 years e-Cigarette/Vaping Use: Former Use Second Hand Smoke Exposure: No Substance Use Type: Former Substance User service: No Current occupational status: unemployed 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 Cognitive needs: No Hearing needs: No Vision needs: No Questionnaire Thrive Questionnaire Date Thrive assessed: 11/22/24 I am a: Patient What is your living situation today?: I have a steady place to live Within the past 12 months, did the food you bought not last and you didn't have the money to get more?: Never true Within the past 12 months, did you worry whether your food would run out before you got money to buy more?: Never true Do you have trouble paying for medicines?: No Do you have trouble getting transportation to medical appointments?: No Do you have trouble paying your heating and electricity bill?: No Do you have trouble taking care of your child, family member or friend?: No Do you have trouble with day-to-day activities such as bathing, preparing meals, shopping, managing finances, etc.?: No Are you currently unemployed and looking for a job?: Yes Are you interested in more education?: Yes Please select the resources that you would like help with: None Currently or been in a relationship where the following occur: No concerns reported THRIVE Score: 0 AUDIT C Alcohol Use Questionnaire (AUDIT-C) 1. How often do you have a drink containing alcohol?: 2-3 times a week 2. How many drinks containing alcohol do you have on a typical day when you are drinking?: 3 or 4 (2-3 glasses of wine 2-3 days a week.) 3. How often do you have six or more drinks on one occasion?: Never Total Score: 4 MOOKIE-7 AMB Questionnaire MOOKIE-7 Date MOOKIE - 7 assessed: 11/22/24 Source: Developed by Drs. Tee Aden, Perla Miranda, Haja Charles and colleagues, with an educational july from [employer]. Physical exam (Primary Care) Vital Signs: Last Vital Signs Temp 98.7 F 02/27/25 11:13 Pulse 71 02/27/25 11:13 Resp 12 02/27/25 11:13 BP 130/84 02/27/25 11:13 Pulse Ox 100 02/27/25 11:13 Oxygen Delivery Method Room Air 02/27/25 11:13 BMI result Body Mass Index 23.3 Tobacco/Smoking Status: Tobacco use Status Tobacco use date assessed 02/27/25 02/27/25 11:16 Patient Tobacco Use Status Former Tobacco user 02/27/25 11:16 Tobacco use type Cigarette 02/27/25 11:16 e-Cigarette/Vaping Use Former Use 02/27/25 11:16 Thrive Assessment: Date of Thrive Assessment Date Thrive assessed 11/22/24 02/27/25 11:16 Currently or been in a relationship where the following occur: No concerns reported Const Orientation/consciousness: patient oriented x3 HENMT Ears: hearing grossly normal bilaterally Neck Thyroid: Thyroid normal Lymphatic: no lymphadenopathy noted Resp Auscultation: clear to auscultation bilaterally Cardio Rate: regular rate Rhythm: regular rhythm Heart sounds: S1 normal heart sound present and S2 normal heart sound present GI Inspection: Yes normal to inspection Palpation (GI): Soft to palpation and Other GI palpation findings present (nontender, no cva tenderness) Auscultation: normoactive bowel sounds Rectal Exam - Female: deferred Skin Other: There is a 2 cm x 2 cm area of erythema located on the anterior left lower leg with an ulceration in the center. Neuro General: patient oriented x3, gait normal and no focal motor deficits Coding Level of Care Code Est Pt Level 4 (78309) Complex EM visit Add On G2211 Diagnoses Essential hypertension I10 Generalized anxiety disorder with panic attacks F41.1; F41.0 Elevated LFTs R79.89 Cellulitis of left lower leg L03.116 Assessment & Plan Assessment & Plan (1) Essential hypertension: Code(s): I10 - Essential (primary) hypertension Category: Medical Plan: Continue current regimen. Has an appointment with Nephrology in a couple days and recently had a reduced GFR. We will monitor this. (2) Generalized anxiety disorder with panic attacks: Code(s): F41.1 - Generalized anxiety disorder; F41.0 - Panic disorder [episodic paroxysmal anxiety] Category: Medical Plan: We will start Lexapro. Discussed risks and benefits and adverse effects of this medication. Short term follow up in 4-6 weeks. Sooner if needed. (3) Elevated LFTs: Code(s): R79.89 - Other specified abnormal findings of blood chemistry Category: Medical Plan: Advised to stop drinking (4) Cellulitis of left lower leg: Code(s): L03.116 - Cellulitis of left lower limb Category: Medical Plan: We will start Keflex. Short term follow up to be reassessed. Medications: New cephalexin 500 mg PO QID 40 caps 0RF escitalopram oxalate (Lexapro) 5 mg PO DAILY 30 tabs 1RF Changed From hydroxyzine HCl 25 mg PO BID 30 days PRN 60 tabs 5RF anxiety To hydroxyzine HCl 25 mg PO .nightly PRN 90 tabs 1RF anxiety 90 days
[2025-02-27 11:13] VITALS: BP 130/84; PULSE 71; RESP 12; TEMP 37.1; O2SAT 100; BMI 23.3
== END 2025-02-27 11:37 | disposition home or self-care (01) ==
LOC: HO.HMCFM 11:05
PROVIDERS: PCP Physician Assistant; Visit Provider Physician Assistant
DX: I10 Essential (primary) hypertension (principal); F41.1 Generalized anxiety disorder; F41.0 Panic disorder [episodic paroxysmal anxiety]; R79.89 Other specified abnormal findings of blood chemistry; L03.116 Cellulitis of left lower limb

== ENCOUNTER → 2025-02-27 11:04 | Outpatient (BNVA) | payer OTHER, SELFPAY | PROVIDERS: PCP Physician Assistant; Visit Provider Physician Assistant | DX: I10 Essential (primary) hypertension (principal); E78.5 Hyperlipidemia, unspecified; F41.1 Generalized anxiety disorder; F41.0 Panic disorder [episodic paroxysmal anxiety]; R79.89 Other specified abnormal findings of blood chemistry; L03.116 Cellulitis of left lower limb | CPT/HCPCS: 99212 ==

== ENCOUNTER 2025-03-01 09:34 | Outpatient (AMB) | payer OTHER, SELFPAY ==
--- NOTE | 2025-03-01 09:41 | HO.NEPHOV ---
Vital Signs 03/01/25 09:43 Height 5 ft 10 in Weight 162 lb 4 oz BMI 23.3 BP 150/100 H Blood Pressure Location Lt brachial Position Sitting Intake Visit Reasons: 4 MO FU/ Conf Institutional Aide Required: No Accompanied by: Mother Allergies No Known Allergies Allergy (Verified 03/01/25 09:43) HPI Comments Details: Carolina who is a delightful 44-year-old female with H/O hyperlipidemia, hypertension & hx of right dvt. Her blood pressures is not well controlled on amlodipine 10 mg and thiazide diuretic was added. Her cholesterol is controlled with atorvastatin 20 mg.She has H/O bilateral PEs. 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 She has no H/O cocaine use, excessive sodium or NSAID use. She had abnormal LFT's likely due to excess alcohol intake. She has no DM, CAD, CVA, CHF, PAD or known PRINCE. She has no H/O uncontrolled thyroid disorders, hypercalcemia or CLARITA. She has H/O ulcers in the legs even when she has been very young. Her renal function has been normal. She was prescribed lexapro which did not handle well and she does not want to take it anymore [facility] Medical History Cellulitis of skin History of pulmonary embolus (PE) DVT of leg (deep venous thrombosis) Skin tag Anxiety Low serum alkaline phosphatase Thrombocytopenia Peripheral vascular disease Peripheral vascular disease Chronic seasonal allergic rhinitis Numerous moles Rash Postphlebitic leg ulcer History of deep venous thrombosis (DVT) of distal vein of right lower extremity Dyslipidemia Essential hypertension Surgical History History of hernia repair History of wisdom tooth extraction Hx of valvuloplasty Family History Father Hypertension Rheumatoid arthritis Mother Hypertension Diabetes Maternal Grandmother Hypertension Diabetes Mental health disorder Paternal Grandmother Mental health disorder Maternal Grandfather Lung cancer Paternal Aunt Lupus (systemic lupus erythematosus) Social History Household Members: Family Housing: House Alcohol intake: current Comment: 2 glasses of wine per day Patient Tobacco Use Status: Former Tobacco user Tobacco use type: Cigarette Years Smoked: 14 years e-Cigarette/Vaping Use: Former Use Second Hand Smoke Exposure: No Substance Use Type: Former Substance User service: No Current occupational status: unemployed 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 Cognitive needs: No Hearing needs: No Vision needs: No Review of Systems Const All systems reviewed & are unremarkable except as noted in HPI and below Physical Exam Vital Signs: Last Vital Signs BP 150/100 H 03/01/25 09:43 BMI result Body Mass Index 23.3 Const General: comfortable and no acute distress Orientation/consciousness: patient oriented x3 HEENT Head: Yes normocephalic Mouth: Normal oral and palatal mucosa present Eyes EOM: EOMs intact bilaterally Neck Neck: Yes supple Resp Auscultation: clear to auscultation bilaterally Cardio Jugular venous distension: no JVD Rate: regular rate GI Palpation (GI): Soft to palpation Auscultation: normal bowel sounds General: Yes no CVA tenderness Back/Spine/Pelvis Back: no CVA tenderness Skin General skin exam: no rashes or lesions noted Neuro General: patient oriented x3 and moves all extremities Results Reviewed Nephrology Results: Hgb, (12.0-16.0) 13.2 g/dl 02/21/25 WBC, (4.8-10.8) 4.6 X10*3/uL L 02/21/25 Plt Count, (160-400) 176 X10*3/uL 02/21/25 Sodium, (135-145) 137 mmol/L 02/21/25 Potassium, (3.3-5.1) 3.1 mmol/L L 02/21/25 Chloride, (96-108) 100 mmol/L 02/21/25 Carbon Dioxide, (22-29) 29 mmol/L 02/21/25 BUN, (9-16) 13 mg/dL 02/21/25 Creatinine, (0.5-1.4) 1.10 mg/dL 02/21/25 Calcium, (8.4-10.2) 9.4 mg/dL 02/21/25 Renal US 08/25/24 Assessment & Plan Assessment & Plan (1) Essential hypertension: Code(s): I10 - Essential (primary) hypertension Category: Medical Plan 44-year-old female with H/O hypertension which she had for over 10 years. Her blood pressures was not well controlled on amlodipine 10 mg and HCTZ was added recently. She has low normal K to start with which has gone lower with HCTZ. I D/Lauro HCTZ and started her on Spironolactone 25 mg daily. She needs to cut down alcohol intake. Her cholesterol is controlled with atorvastatin 20 mg. She has no H/O cocaine use, excessive sodium or NSAID use. She has no DM, CAD, CVA, CHF, PAD or known PRINCE. She has no H/O uncontrolled thyroid disorders,hypercalcemia or CLARITA. Her renal function has been normal.She will need Rheumatology consult later( rash, ulcers, joint swellings). All questions answered Orders: Orders Blood Urea Nitrogen Today I10 - Essential (primary) hypertension Creatinine Today I10 - Essential (primary) hypertension Electrolytes Today I10 - Essential (primary) hypertension Medications: New spironolactone 25 mg PO DAILY 30 tabs 3RF Discontinued hydrochlorothiazide Discontinued Reason: Doctor's Order 25 mg PO QAM 90 tabs 0RF Coding Level of Care Code Est Pt Level 4 (27274) Diagnoses Essential hypertension I10
[2025-03-01 09:43] VITALS: BP 150/100; BMI 23.3
== END 2025-03-01 10:14 | disposition home or self-care (01) ==
LOC: HO.HKA 09:35
PROVIDERS: PCP Physician Assistant; Visit Provider Internal Medicine Nephrology
DX: I10 Essential (primary) hypertension (principal)
CPT/HCPCS: 99214

== ENCOUNTER → 2025-03-01 16:00 | Outpatient (BNV) | payer OTHER, SELFPAY | PROVIDERS: PCP Physician Assistant; Visit Provider Internal Medicine | DX: Z12.31 Encounter for screening mammogram for malignant neoplasm of breast (principal) | CPT/HCPCS: 77063; 77067 ==

== ENCOUNTER 2025-03-01 16:03 | Outpatient (REF) | payer OTHER, SELFPAY ==
--- NOTE | ~2025-03-01 | MM_ITS ---
EXAMINATION: MM SCREENING DIGITAL BREAST TOMOSYNTHESIS, BILATERAL CLINICAL INFORMATION: Screening. Asymptomatic. COMPARISON: Mammography: Comparison is made with available priors TECHNIQUE: Digital breast mammography with tomosynthesis is performed in both the craniocaudal and mediolateral oblique views along with computer-aided detection (CAD). FINDINGS: The breasts are extremely dense, which lowers the sensitivity of mammography (ACR BI-RADS breast composition Category d). There are no significant masses, abnormal calcifications, or other abnormalities. MM/MM tomosynthesis screening BI IMPRESSION: No mammographic evidence of malignancy. ASSESSMENT: BI-RADS BI-RADS 1 - Negative RECOMMENDATION: Routine annual mammography screening. 1 year F/U This examination should not preclude the clinical evaluation of a suspicious palpable abnormality. This patient's information was entered into a reminder system with a target due date for their next mammogram. Electronically signed by: Shantelle Anderson DO 03/12/2025 02:35 PM EDT
== END 2025-03-01 16:04 | disposition home or self-care (01) ==
LOC: HO.MAMMO 16:03
PROVIDERS: PCP Physician Assistant; Visit Provider Physician Assistant
DX: Z12.31 Encounter for screening mammogram for malignant neoplasm of breast (principal); I10 Essential (primary) hypertension
CPT/HCPCS: 77063; 77067; 99212

== ENCOUNTER 2025-03-14 10:37 | Outpatient (REF) | payer OTHER, SELFPAY ==
[2025-03-14 14:29] LABS: Anion Gap 11 (12-20); Blood Urea Nitrogen 20 mg/dL (9-16); Carbon Dioxide 25 mmol/L (22-29); Chloride 107 mmol/L (96-108); Estimated Glomerular Filt Rate 57; Potassium 4.4 mmol/L (3.3-5.1); Sodium 139 mmol/L (135-145)
== END 2025-03-14 10:38 | disposition home or self-care (01) ==
LOC: HO.WFDLDS 10:37
PROVIDERS: Visit Provider Internal Medicine Nephrology
DX: I10 Essential (primary) hypertension (principal)
CPT/HCPCS: 36415; 80051; 82565; 84520

== ENCOUNTER 2025-03-20 11:34 | Outpatient (AMB) | payer OTHER, SELFPAY ==
--- NOTE | 2025-03-20 11:39 | HO.NEPHOV ---
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 Her blood pressures was not well controlled on amlodipine 10 mg and thiazide diuretic was added. Her cholesterol is controlled with atorvastatin 20 mg.She has H/O bilateral PEs. 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 She has no H/O cocaine use, excessive sodium or NSAID use. She had abnormal LFT's likely due to excess alcohol intake. She has no DM, CAD, CVA, CHF, PAD or known PRINCE. She has no H/O uncontrolled thyroid disorders, hypercalcemia or CLARITA. She has H/O ulcers in the legs even when she has been very young. Her renal function has been normal. [facility] Medical History Cellulitis of skin History of pulmonary embolus (PE) DVT of leg (deep venous thrombosis) Skin tag Anxiety Low serum alkaline phosphatase Thrombocytopenia Peripheral vascular disease Peripheral vascular disease Chronic seasonal allergic rhinitis Numerous moles Rash Postphlebitic leg ulcer History of deep venous thrombosis (DVT) of distal vein of right lower extremity Dyslipidemia Essential hypertension Surgical History History of hernia repair History of wisdom tooth extraction Hx of valvuloplasty Family History Father Hypertension Rheumatoid arthritis Mother Hypertension Diabetes Maternal Grandmother Hypertension Diabetes Mental health disorder Paternal Grandmother Mental health disorder Maternal Grandfather Lung cancer Paternal Aunt Lupus (systemic lupus erythematosus) Social History Household Members: Family Housing: House Alcohol intake: current Comment: 2 glasses of wine per day Patient Tobacco Use Status: Former Tobacco user Tobacco use type: Cigarette Years Smoked: 14 years e-Cigarette/Vaping Use: Former Use Second Hand Smoke Exposure: No Substance Use Type: Former Substance User service: No Current occupational status: unemployed 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 Cognitive needs: No Hearing needs: No Vision needs: No Review of Systems Const All systems reviewed & are unremarkable except as noted in HPI and below Physical Exam Const General: comfortable and no acute distress Orientation/consciousness: patient oriented x3 HEENT Head: Yes normocephalic Mouth: Normal oral and palatal mucosa present Eyes EOM: EOMs intact bilaterally Neck Neck: Yes supple Resp Auscultation: clear to auscultation bilaterally Cardio Jugular venous distension: no JVD Rate: regular rate GI Palpation (GI): Soft to palpation Auscultation: normal bowel sounds General: Yes no CVA tenderness Back/Spine/Pelvis Back: no CVA tenderness Skin General skin exam: no rashes or lesions noted Neuro General: patient oriented x3 and moves all extremities Extrem General: Yes no pedal edema Results Reviewed Nephrology Results: Hgb, (12.0-16.0) 13.0 g/dl 03/15/25 WBC, (4.8-10.8) 6.0 X10*3/uL 03/15/25 Plt Count, (160-400) 135 X10*3/uL L 03/15/25 Sodium, (135-145) 138 mmol/L 03/15/25 Potassium, (3.3-5.1) 3.9 mmol/L 03/15/25 Chloride, (96-108) 103 mmol/L 03/15/25 Carbon Dioxide, (22-29) 24 mmol/L 03/15/25 BUN, (9-16) 22 mg/dL H 03/15/25 Creatinine, (0.5-1.4) 1.09 mg/dL 03/15/25 Calcium, (8.4-10.2) 9.8 mg/dL 03/15/25 Renal US 08/25/24 Assessment & Plan Assessment & Plan (1) Essential hypertension: Code(s): I10 - Essential (primary) hypertension Category: Medical (2) Lower extremity ulceration: Code(s): L97.909 - Non-pressure chronic ulcer of unspecified part of unspecified lower leg with unspecified severity Category: Medical Qualifiers: Laterality: right Non-pressure ulcer stage: unspecified non-pressure ulcer stage Qualified Code(s): L97.919 - Non-pressure chronic ulcer of unspecified part of right lower leg with unspecified severity Plan 44-year-old female with H/O hypertension which she had for over 10 years. Her blood pressures had not been well controlled on amlodipine 10 mg and HCTZ was added recently. She has low normal K to start with which has gone lower with HCTZ. I D/Lauro HCTZ atthe last visit and started her on Spironolactone 25 mg daily. She needs to cut down alcohol intake. Her cholesterol is controlled with atorvastatin 20 mg. She has no H/O cocaine use, excessive sodium or NSAID use. She has no DM, CAD, CVA, CHF, PAD or known PRINCE. She has no H/O uncontrolled thyroid disorders,hypercalcemia or CLARITA. Her renal function has been normal.She will need Rheumatology consult later( rash, ulcers, joint swellings)( referred). All questions answered Orders: Orders Electrolytes 3 Months I10 - Essential (primary) hypertension UA and rflx microscopic 3 Months I10 - Essential (primary) hypertension Protein Creatinine Ratio, Ur 3 Months I10 - Essential (primary) hypertension Creatinine 3 Months I10 - Essential (primary) hypertension Blood Urea Nitrogen 3 Months I10 - Essential (primary) hypertension Referrals Rheumatology Referral L97.909 - Non-pressure chronic ulcer of unspecified part of unspecified lower leg with unspecified severity Coding Level of Care Code Est Pt Level 4 (44187) Diagnoses Essential hypertension I10 Ulcer of right lower extremity, unspecified ulcer stage L97.919 Laterality: right Non-pressure ulcer stage: unspecified non-pressure ulcer stage
[2025-03-20 11:40] VITALS: BP 110/80; PULSE 65; O2SAT 99; BMI 23.4
== END 2025-03-20 12:05 | disposition home or self-care (01) ==
LOC: HO.HKA 11:35
PROVIDERS: PCP Physician Assistant; Visit Provider Internal Medicine Nephrology
DX: I10 Essential (primary) hypertension (principal); L97.919 Non-pressure chronic ulcer of unspecified part of right lower leg with unspecified severity
CPT/HCPCS: 99214

== ENCOUNTER → 2025-03-20 11:34 | Outpatient (BNVA) | payer OTHER, SELFPAY | PROVIDERS: PCP Physician Assistant; Visit Provider Internal Medicine Nephrology | DX: I10 Essential (primary) hypertension (principal); L97.919 Non-pressure chronic ulcer of unspecified part of right lower leg with unspecified severity | CPT/HCPCS: 99212 ==

== ENCOUNTER 2025-04-03 10:59 | Outpatient (AMB) | payer OTHER, SELFPAY ==
[2025-04-03 11:09] VITALS: BP 144/76; PULSE 71; RESP 12; O2SAT 99; BMI 23.3
--- NOTE | 2025-04-03 11:09 | A.OFFPC_ITS ---
Vital Signs 04/03/25 11:09 04/03/25 11:14 Height 5 ft 10 in Weight 162 lb 8 oz BMI 23.3 BP 144/76 H 130/84 Blood Pressure Location Lt brachial Lt brachial Position Sitting Sitting Respiration 12 Pulse 71 Pulse Source Pulse Oximeter Pulse Oximetry (%) 99 Oxygen Delivery Method Room Air Intake Visit Reasons: med changes Intake Note: Medciation follow up. 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 Accompanied by: Mother Allergies No Known Allergies Allergy (Verified 03/20/25 11:40) Medication List - Last Reconciled 04/03/25 by Gaby Callaway PA-C amlodipine 10 mg PO DAILY aspirin 81 mg PO DAILY azelastine 1 spray intranasal BID comp.stocking,knee,long,medium Use daily As directed for right leg gabapentin 100 mg PO TID PRN 7 days hydroxyzine HCl 25 mg PO .nightly PRN 90 days spironolactone 50 mg PO DAILY Tobacco use date assessed: 04/03/25 Dental Screening Dental Screen Date: 11/22/24 HPI med changes HPI Details Patient is a 45-year-old female with a significant past medical of hyperlipidemia, hypertension, hx of right dvt and anxiety presenting today for a follow up. Vasc: She states that the open sore on her left ankle has resolved but she has noticed that she might be developing some ulceration on the right again. She is frustrated because she keeps getting ulcerations despite being very careful with her skin and previously had not had anything on the left before. She does follow with vascular surgery CV: Blood pressure today in the office is 130/84. It has been similar at home. She is currently on the spironolactone 25 mg which was recently added. She is still on the amlodipine 10 mg. Heme: following with Hematology for workup. GI: Has been noted to have elevated LFTs and fatty liver. 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 She was encouraged to reduce/eliminate alcohol. She is fully avoided alcohol since our visit. Psych: She tells me today that she has been taking the hydroxyzine infrequently. Did not tolerate the Lexapro. 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 MADISONH Medical History Cellulitis of skin History of pulmonary embolus (PE) DVT of leg (deep venous thrombosis) Skin tag Anxiety Low serum alkaline phosphatase Thrombocytopenia Peripheral vascular disease Peripheral vascular disease Chronic seasonal allergic rhinitis Numerous moles Rash Postphlebitic leg ulcer History of deep venous thrombosis (DVT) of distal vein of right lower extremity Dyslipidemia Essential hypertension Surgical History History of hernia repair History of wisdom tooth extraction Hx of valvuloplasty Family History Father Hypertension Rheumatoid arthritis Mother Hypertension Diabetes Maternal Grandmother Hypertension Diabetes Mental health disorder Paternal Grandmother Mental health disorder Maternal Grandfather Lung cancer Paternal Aunt Lupus (systemic lupus erythematosus) Social History Household Members: Family Housing: House Alcohol intake: current Comment: 2 glasses of wine per day Patient Tobacco Use Status: Former Tobacco user Tobacco use type: Cigarette Years Smoked: 14 years e-Cigarette/Vaping Use: Former Use Second Hand Smoke Exposure: No Substance Use Type: Former Substance User service: No Current occupational status: unemployed 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 Cognitive needs: No Hearing needs: No Vision needs: No Questionnaire Thrive Questionnaire Date Thrive assessed: 11/22/24 I am a: Patient What is your living situation today?: I have a steady place to live Within the past 12 months, did the food you bought not last and you didn't have the money to get more?: Never true Within the past 12 months, did you worry whether your food would run out before you got money to buy more?: Never true Do you have trouble paying for medicines?: No Do you have trouble getting transportation to medical appointments?: No Do you have trouble paying your heating and electricity bill?: No Do you have trouble taking care of your child, family member or friend?: No Do you have trouble with day-to-day activities such as bathing, preparing meals, shopping, managing finances, etc.?: No Are you currently unemployed and looking for a job?: Yes Are you interested in more education?: Yes Please select the resources that you would like help with: None Currently or been in a relationship where the following occur: No concerns reported THRIVE Score: 0 MOOKIE-7 AMB Questionnaire MOOKIE-7 Date MOOKIE - 7 assessed: 11/22/24 Source: Developed by Drs. Tee Aden, Perla Miranda, Haja Charles and colleagues, with an educational july from [employer]. Physical exam (Primary Care) Vital Signs: Last Vital Signs Pulse 71 04/03/25 11:09 Resp 12 04/03/25 11:09 BP 130/84 04/03/25 11:14 Pulse Ox 99 04/03/25 11:09 Oxygen Delivery Method Room Air 04/03/25 11:09 BMI result Body Mass Index 23.3 Tobacco/Smoking Status: Tobacco use Status Tobacco use date assessed 04/03/25 04/03/25 11:15 Patient Tobacco Use Status Former Tobacco user 04/03/25 11:15 Tobacco use type Cigarette 04/03/25 11:15 e-Cigarette/Vaping Use Former Use 04/03/25 11:15 Thrive Assessment: Date of Thrive Assessment Date Thrive assessed 11/22/24 04/03/25 11:15 Currently or been in a relationship where the following occur: No concerns reported Const Orientation/consciousness: patient oriented x3 HENMT Ears: hearing grossly normal bilaterally Neck Thyroid: Thyroid normal Lymphatic: no lymphadenopathy noted Resp Auscultation: clear to auscultation bilaterally Cardio Rate: regular rate Rhythm: regular rhythm Heart sounds: S1 normal heart sound present and S2 normal heart sound present Skin Other: Intact today Neuro General: patient oriented x3, gait normal and no focal motor deficits Coding Level of Care Code Est Pt Level 4 (30018) Complex EM visit Add On G2211 Diagnoses Essential hypertension I10 Elevated LFTs R79.89 Generalized anxiety disorder with panic attacks F41.1; F41.0 Venous stasis ulcer of right ankle limited to breakdown of skin with varicose veins I83.013; L97.311 Laterality: right Non-pressure ulcer stage: limited to breakdown of skin Varicose vein presence: with varicose veins Chronic sinusitis J32.9 Assessment & Plan Assessment & Plan (1) Essential hypertension: Code(s): I10 - Essential (primary) hypertension Category: Medical Plan: increase spironlactone to 50 mg (2) Elevated LFTs: Code(s): R79.89 - Other specified abnormal findings of blood chemistry Category: Medical Plan: Following with GI. Has an upcoming appointment. Has avoided alcohol. We will monitor labs (3) Generalized anxiety disorder with panic attacks: Code(s): F41.1 - Generalized anxiety disorder; F41.0 - Panic disorder [episodic paroxysmal anxiety] Category: Medical Plan: Doing better. Using hydroxyzine as needed (4) Venous ulcer of ankle: Code(s): I83.003 - Varicose veins of unspecified lower extremity with ulcer of ankle; L97.309 - Non-pressure chronic ulcer of unspecified ankle with unspecified severity Category: Medical Qualifiers: Laterality: right Non-pressure ulcer stage: limited to breakdown of skin Varicose vein presence: with varicose veins Qualified Code(s): I83.013 - Varicose veins of right lower extremity with ulcer of ankle; L97.311 - Non- pressure chronic ulcer of right ankle limited to breakdown of skin Plan: currently closed but the scabs are getting larger per pt will consult vascular surgery (5) Chronic sinusitis: Code(s): J32.9 - Chronic sinusitis, unspecified Category: Medical Plan: Referral to ENT. Previously saw Allergy and immunology but states that she was not allergic to anything but has chronic congestion. Orders: Orders Complete Blood Count Auto Diff 04/03/25 F41.0 - Panic disorder [episodic paroxysmal anxiety], F41.1 - Generalized anxiety disorder, I10 - Essential (primary) hypertension, J32.9 - Chronic sinusitis, unspecified, R79.89 - Other specified abnormal findings of blood chemistry Comprehensive Met. Panel 04/03/25 F41.0 - Panic disorder [episodic paroxysmal anxiety], F41.1 - Generalized anxiety disorder, I10 - Essential (primary) hypertension, J32.9 - Chronic sinusitis, unspecified, R79.89 - Other specified abnormal findings of blood chemistry Referrals Ear/Nose/Throat Referral J32.9 - Chronic sinusitis, unspecified Medications: New spironolactone 50 mg PO DAILY 90 tabs 3RF levocetirizine (Xyzal) 5 mg PO QPM 90 tabs 2RF Discontinued spironolactone Discontinued Reason: Doctor's Order 25 mg PO DAILY 30 tabs 3RF
[2025-04-03 11:14] VITALS: BP 130/84
== END 2025-04-03 11:55 | disposition home or self-care (01) ==
LOC: HO.HMCFM 11:00
PROVIDERS: PCP Physician Assistant; Visit Provider Physician Assistant
DX: I10 Essential (primary) hypertension (principal); R79.89 Other specified abnormal findings of blood chemistry; I83.013 Varicose veins of right lower extremity with ulcer of ankle; L97.311 Non-pressure chronic ulcer of right ankle limited to breakdown of skin; F41.0 Panic disorder [episodic paroxysmal anxiety]; F41.1 Generalized anxiety disorder; J32.9 Chronic sinusitis, unspecified

== ENCOUNTER → 2025-04-03 10:59 | Outpatient (BNVA) | payer OTHER, SELFPAY | PROVIDERS: PCP Physician Assistant; Visit Provider Physician Assistant | DX: I10 Essential (primary) hypertension (principal); E78.5 Hyperlipidemia, unspecified; F41.9 Anxiety disorder, unspecified; F41.1 Generalized anxiety disorder; F41.0 Panic disorder [episodic paroxysmal anxiety]; I83.013 Varicose veins of right lower extremity with ulcer of ankle; L97.311 Non-pressure chronic ulcer of right ankle limited to breakdown of skin; J32.9 Chronic sinusitis, unspecified; R79.89 Other specified abnormal findings of blood chemistry; Z86.718 Personal history of other venous thrombosis and embolism | CPT/HCPCS: 99212 ==

== ENCOUNTER 2025-04-09 12:32 | Outpatient (AMB) | payer OTHER, SELFPAY ==
--- NOTE | 2025-04-09 12:34 | MHC.OFFVIS ---
Vital Signs 04/09/25 12:35 Height 5 ft 10 in Weight 162 lb BMI 23.2 BP 137/94 H Blood Pressure Location Lt brachial Position Sitting Pulse 70 Pulse Oximetry (%) 98 Oxygen Delivery Method Room Air Intake Visit Reasons: transaminitis Intake Note: Patient follow up for Transamnitis Patient denies any GI issues for today. 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 by: Mother Allergies No Known Allergies Allergy (Verified 04/09/25 12:34) HPI HPI transaminitis: Details: Assessment & Plan (1) Elevated LFTs: Comment: BASELINE LABS 11:37 WBC 4.6 L Hgb 13.2 Hct 35.9 L MCV 80.1 MCH 29.5 Plt Count 176 Estimated GFR 54 Total Bilirubin 1.4 H AST 38 H ALT 29 Alkaline Phosphatase 25 L TSH 1.34 12/31/2300/ 11:4009:4516:27 Plt Count 122 L D 155 L 149 L 08/24/2502/11/2504 09:4511:4716:27 JEFFERY Screen POSITIVE A JEFFERY Titer 1:80 H JEFFERY Pattern Nuclear, Homogeneous A Hepatitis A IgM Ab Nonreactive Hep Bs Antibody REACTIVE Hepatitis C Ab (EIA) Nonreactive CURRENT LABS ULTRASOUND OF THE ABDOMEN 09/08/2024 Findings: The visualized pancreas is normal. The aorta and inferior vena cava are normal caliber. The appearance of the liver suggests fatty infiltration without focal lesion. There is no intrahepatic bile duct dilatation. The common duct is 2.3 mm in diameter. The gallbladder is normal. There is no sonographic Mchugh sign. The main portal vein is antegrade. The right kidney is 11.5 cm in length. The left kidney is 10.8 cm in length. The spleen is normal. No ascites. IMPRESSION: 1. Hepatic steatosis Code(s): R79.89 - Other specified abnormal findings of blood chemistry Category: Medical (2) Alcohol dependence: Code(s): F10.20 - Alcohol dependence, uncomplicated Category: Medical Plan There is no known FHX of liver disease; but she will check in the family. She admits to drinking ETOH, She tries to drink only a couple of days a week but admits I used to drink more. She usually drinks wine and during the pandemic drank more - Heaviest she would drink 6 glasses or a bottle and a half, now she keeps it to 2-3 glasses and at times will have cocktails. She has severe anxiety and drinks to relax at night, she was on a medley of medications pre teen that made her feel crazy, but she does not remember the names of the medications. She will see if her mother remembers. This may be important going forward. She is currently on hydroxyzine and prn gabapentin. She is not obese. Still, she could have some genetic fatty liver component overlapped with ETOH. She was educated about this. I am trying to lay the ground work because her labs certainly point towards alcohol toxicity as the most likely cause particularly when paired with her intermittent thrombocytopenia. Of course will make sure there is no other reversible causes, but I think treating underlying anxiety maybe imperative. Even though she is cutting back, which is certainly better for her health, she still exceeding the recommended daily intake of alcohol for a female. ROV 6 weeks. Orders: Orders Smooth Muscle Antibody Today R7 - Other specified abnormal findings of blood chemistry Alpha Fetoprotein Today R7 - Other specified abnormal findings of blood chemistry Ferritin Today R7. - Other specified abnormal findings of blood chemistry Mitochondrial Antibody Today - Other specified abnormal findings of blood chemistry Phosphatidylethanol, Blood Today R7.89 - Other specified abnormal findings of blood chemistry HIV Ab/Ag Today R7 - Other specified abnormal findings of blood chemistry Ceruloplasmin Today R7. - Other specified abnormal findings of blood chemistry Liver Fibrosis Pnl Today R7 - Other specified abnormal findings of blood chemistry LABS Laboratory Tests 02/26/25 03/15/25 12:04 15:21 WBC 6.0 Hgb 13.0 Hct 36.3 L Plt Count 135 L Estimated GFR 55 Total Bilirubin 1.3 H AST 29 ALT 31 Alkaline Phosphatase 24 L Anti-Smooth Muscle Ab 24 H PEth 16:0/18.1 (POPEth) 41 PEth 16:0/18.2 (PLPEth) 49 HIV 1&2 Ab/P24 Ag 4thGn Nonreactive FERRITIN 68, afp 2.2 TODAYS VISIT [facility] Medical History Cellulitis of skin History of pulmonary embolus (PE) DVT of leg (deep venous thrombosis) Skin tag Anxiety Low serum alkaline phosphatase Thrombocytopenia Peripheral vascular disease Peripheral vascular disease Chronic seasonal allergic rhinitis Numerous moles Rash Postphlebitic leg ulcer History of deep venous thrombosis (DVT) of distal vein of right lower extremity Dyslipidemia Essential hypertension Surgical History History of hernia repair History of wisdom tooth extraction Hx of valvuloplasty Family History Father Hypertension Rheumatoid arthritis Mother Hypertension Diabetes Maternal Grandmother Hypertension Diabetes Mental health disorder Paternal Grandmother Mental health disorder Maternal Grandfather Lung cancer Paternal Aunt Lupus (systemic lupus erythematosus) Social History Household Members: Family Housing: House Alcohol intake: current Comment: 2 glasses of wine per day Patient Tobacco Use Status: Former Tobacco user Tobacco use type: Cigarette Years Smoked: 14 years e-Cigarette/Vaping Use: Former Use Second Hand Smoke Exposure: No Substance Use Type: Former Substance User service: No Current occupational status: unemployed 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 Cognitive needs: No Hearing needs: No Vision needs: No Review of Systems Const Denies fatigue, Denies fever(s), Denies night sweats, Denies poor appetite and Denies weight loss ENT Reports Normal hearing present, Denies dental pain, Denies dysphagia, Denies hearing loss, Denies mouth pain, Denies odynophagia, Denies throat swelling, Denies tongue swelling and Reports other (Dentition adequate) Card Reports no additional complaints Resp Reports no additional complaints GI Details: Denies abdominal pain, Denies melena, Denies bloating, Denies hematochezia, Denies constipation, Denies GI cramping, Denies dysphagia, Denies excessive flatus, Denies early satiety, Denies heartburn, Denies diarrhea, Denies nausea, Denies odynophagia, Denies vomiting and Denies hematemesis Skin/Breast Details: ON ARMS, BACK, AND LEGS REDDENED SLIGHTLY RAISED AREAS THAT SEEM IRREGULAR IN PATTERN BUT NOT EXACTLY LIVE VIDEO Reports pruritus, Reports lesions, Reports rash and Denies jaundice Neuro Reports Normal hearing present and Denies Abnormal speech present Endo Denies fatigue Aller/Immun Denies throat swelling and Denies tongue swelling Physical Exam Vital Signs: Last Vital Signs Pulse 70 04/09/25 12:35 BP 137/94 H 04/09/25 12:35 Pulse Ox 98 04/09/25 12:35 Oxygen Delivery Method Room Air 04/09/25 12:35 BMI result Body Mass Index 23.2 Const General: cooperative, no acute distress, well developed and well groomed Nutritional Appearance: average body habitus and well nourished Orientation/consciousness: oriented to person, oriented to place and oriented to time Limitations: No language barrier HEENT Head: Yes normocephalic and Yes atraumatic Eyes General: appearance normal, both eyes and all related structures Pupils: Equal, round and reactive pupils present Neck Neck: Yes normal visual inspection and Yes no lymphadenopathy Thyroid: Thyroid normal Resp Effort & Inspection: normal respiratory effort and able to speak in complete sentences Auscultation: clear to auscultation bilaterally Cardio Rate: regular rate Rhythm: regular rhythm Heart sounds: Normal, physiologic split S2 sound present Peripheral pulses: radial pulses present and posterior tibial pulses present GI Inspection: No distended and No Abdominal panniculus present Palpation (GI): Soft to palpation, nontender, no guarding, not rigid and No hepatosplenomegaly present Percussion: Yes normal to percussion Auscultation: normal bowel sounds Rectal Exam - Female: deferred Skin General skin exam: turgor normal, skin not dry, no jaundice, No spider nevi and no striae Rashes: rashes noted (ON ARMS, BACK, AND LEGS REDDENED SLIGHTLY RAISED AREAS THAT SEEM IRREGULAR ) Nails: normal Neuro General: oriented to person, oriented to place and oriented to time Cranial nerves: Yes Equal, round and reactive pupils present and Yes Normal hearing present Speech: No Abnormal speech present Extrem General: Yes normal to inspection, No clubbing, No cyanosis and No edema Psych Appearance: grossly normal and well kempt Mental Status: mental status grossly normal Speech and movement: Normal speech and movement present Affect: normal affect Attitude: cooperative Thought process: Normal thought process present and not confabulating Thought content: Normal thought content present Insight: Fair insight present (Psych) Judgement: Fair judgement present (Psych) Assessment & Plan Assessment & Plan (1) Fatty liver: Comment: BASELINE LABS 02/21/25 Plt Count 176 Estimated GFR 54 Total Bilirubin 1.4 H AST 38 H ALT 29 Alkaline Phosphatase 25 L TSH 1.34 12/31/22 08/24/24 12/17/24 Plt Count 122 L D 155 L 149 L JEFFERY Screen POSITIVE A JEFFERY Titer 1:80 H JEFFERY Pattern Nuclear, Homogeneous A Hepatitis A IgM Ab Nonreactive Hep Bs Antibody REACTIVE Hepatitis C Ab (EIA) Nonreactive 02/27/2508/15/25 Plt Count 135 L Estimated GFR 55 Total Bilirubin 1.3 H AST 29 ALT 31 Alkaline Phosphatase 24 L Anti-Smooth Muscle Ab 24 H PEth 16:0/18.1 (POPEth) 41 PEth 16:0/18.2 (PLPEth) 49 HIV 1&2 Ab/P24 Ag 4thGn Nonreactive FERRITIN 68, AFP 2.2 CURRENT LABS ULTRASOUND OF THE ABDOMEN 09/08/2024 Findings: The visualized pancreas is normal. The aorta and inferior vena cava are normal caliber. The appearance of the liver suggests fatty infiltration without focal lesion. There is no intrahepatic bile duct dilatation. The common duct is 2.3 mm in diameter. The gallbladder is normal. There is no sonographic Mchugh sign. The main portal vein is antegrade. The right kidney is 11.5 cm in length. The left kidney is 10.8 cm in length. The spleen is normal. No ascites. IMPRESSION: 1. Hepatic steatosis. Code(s): K76.0 - Fatty (change of) liver, not elsewhere classified Category: Medical Plan She is here today with her mother who is supportive - The patient is a 45-year-old female presenting with an elevated smooth muscle antibody and thrombocytopenia. - Reports cessation of alcohol on February 26, no withdrawal symptoms, and awareness of a possible autoimmune component related to her liver function. - The thrombocytopenia's etiology is currently unclear, with considerations being liver or bone marrow issues. While there is no current severe threat of bleeding this should be monitored. It appears that she has gone up and down in and out of the normal platelet range over the past couple of years. - Describes itchy, reactive skin, with an observed venous ulcer related to previous trauma. A possible lupus or vasculitis diagnosis is under exploration. She is waiting to see rheumatology but there booked quite a ways out. She did have a mildly elevated JEFFERY of 1:80 with a lupus-like pattern which is far from conclusive. - Positive family history of lupus and rheumatoid arthritis, increasing the likelihood of an autoimmune disorder. I encouraged her to continue to avoid alcohol on any regular basis. We will continue to monitor her liver functions and her smooth muscle antibody but right now she does not have a lot of symptoms that would make me feel like I need to treat her for autoimmune liver disease. As always, autoimmune conditions tend to be elusive to diagnose and treat so will keep an eye on this. Return office visit in 6 months Coding Level of Care Code Est Pt Level 3 (30445) Diagnoses Fatty liver K76.0
[2025-04-09 12:35] VITALS: BP 137/94; PULSE 70; O2SAT 98; BMI 23.2
== END 2025-04-09 13:01 | disposition home or self-care (01) ==
PROVIDERS: PCP Physician Assistant; Visit Provider Nurse Practitioner
DX: K76.0 Fatty (change of) liver, not elsewhere classified (principal)
CPT/HCPCS: 99213

== ENCOUNTER → 2025-04-09 12:32 | Outpatient (BNVA) | payer OTHER, SELFPAY | PROVIDERS: PCP Physician Assistant; Visit Provider Nurse Practitioner | DX: K76.0 Fatty (change of) liver, not elsewhere classified (principal); R79.89 Other specified abnormal findings of blood chemistry; Z87.891 Personal history of nicotine dependence; F10.21 Alcohol dependence, in remission | CPT/HCPCS: 99212 ==

== ENCOUNTER 2025-05-14 10:12 | Outpatient (REF) | payer OTHER, SELFPAY ==
[2025-05-14 11:27] LABS: MANUAL DIFF FLAG NO
[2025-05-14 12:02] LABS: Hematocrit 37.4 % (37.0-47.0); Hemoglobin 12.7 g/dl (12.0-16.0); Imm Gran Abs Auto 0.01 X10*3/uL (0.00-0.03); Imm Gran Pct Auto 0.2 % (0.0-0.4); Lymphocytes Absolute Auto 1.3 X10*3/uL (1.2-4.9); Mean Corpuscular HGB Conc 34.0 g/dl (31.0-35.0); Mean Corpuscular Hemoglobin 28.6 pg (27.0-33.0); Mean Corpuscular Volume 84.2 fL (80.0-98.0); NRBC Abs Auto 0.000 X10*3/uL (0.0-0.012); NRBC Pct Auto 0.0 /100WBC (0.0-0.2); Platelet Count 192 X10*3/uL (160-400); Red Blood Count 4.44 X10*6/uL (4.20-5.50); White Blood Count 5.1 X10*3/uL (4.8-10.8)
[2025-05-14 12:40] LABS: Alanine Aminotransferase 20 U/L (0-31); Albumin Level 4.3 g/dL (3.5-5.0); Alkaline Phosphatase 22 U/L (39-117); Anion Gap 11 (12-20); Aspartate Amino Transferase 26 U/L (5-31); Blood Urea Nitrogen 12 mg/dL (9-16); Calcium 9.2 mg/dL (8.4-10.2); Carbon Dioxide 26 mmol/L (22-29); Chloride 106 mmol/L (96-108); Estimated Glomerular Filt Rate > 60; Potassium 3.7 mmol/L (3.3-5.1); Sodium 139 mmol/L (135-145); Total Protein 6.9 g/dL (6.5-8.0)
== END 2025-05-14 10:13 | disposition home or self-care (01) ==
LOC: HO.WFDLDS 10:12
PROVIDERS: Visit Provider Physician Assistant
DX: F41.0 Panic disorder [episodic paroxysmal anxiety] (principal); I10 Essential (primary) hypertension; J32.9 Chronic sinusitis, unspecified; R79.89 Other specified abnormal findings of blood chemistry
CPT/HCPCS: 36415; 80053; 85025

== ENCOUNTER 2025-05-16 13:01 | Outpatient (AMB) | payer OTHER, SELFPAY ==
--- NOTE | 2025-05-16 13:11 | MHC.PC.OV ---
Vital Signs 05/16/25 13:15 05/16/25 13:18 Height 5 ft 10 in Weight 164 lb BMI 23.5 BP 138/102 H 124/90 H Blood Pressure Location Rt brachial Rt brachial Position Sitting Sitting Respiration 12 Pulse 73 Pulse Source Pulse Oximeter Temp 98.7 F Temp Source Oral Pulse Oximetry (%) 99 Oxygen Delivery Method Room Air Intake Visit Reasons: labs and bp Intake Note: Lab results and blood pressure follow up. Went to ENT and the provider recommended Flonase. Pt never received the rx and can not get ahold of the office. Pt requesting refill today if possible. Refill on Aspirin 81. 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: No Allergies No Known Allergies Allergy (Verified 05/16/25 13:11) Medication List - Last Reconciled 05/16/25 by Gaby Callaway PA-C amlodipine 10 mg PO DAILY aspirin 81 mg PO DAILY azelastine 1 spray intranasal BID comp.stocking,knee,long,medium Use daily As directed for right leg gabapentin 100 mg PO TID PRN 7 days hydroxyzine HCl 25 mg PO .nightly PRN 90 days levocetirizine (Xyzal) 5 mg PO QPM spironolactone 50 mg PO DAILY Tobacco use date assessed: 05/16/25 Dental Screening Dental Screen Date: 11/22/24 HPI labs and bp HPI Details Patient is a 45-year-old female with a significant past medical of hyperlipidemia, hypertension, hx of right dvt and anxiety presenting today for a follow up. Vasc: She states that the open sore on her left ankle has resolved but she has noticed that she might be developing some ulceration on the right again. She is frustrated because she keeps getting ulcerations despite being very careful with her skin and previously had not had anything on the left before. She does follow with vascular surgery but states that they told her there may not be a lot they can do. She would like a second opinion CV: Blood pressure today in the office is 124/90. It has been better at home around 120/70.. She is currently on the spironolactone 25 mg which was recently added. She is still on the amlodipine 10 mg. Heme: following with Hematology for workup. GI: Has been noted to have elevated LFTs and fatty liver. She did recently see GI. Psych: She tells me today that she has been taking the hydroxyzine infrequently. Did not tolerate the Lexapro. 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: following with Terri Torres [facility] Medical History Cellulitis of skin History of pulmonary embolus (PE) DVT of leg (deep venous thrombosis) Skin tag Anxiety Low serum alkaline phosphatase Thrombocytopenia Peripheral vascular disease Peripheral vascular disease Chronic seasonal allergic rhinitis Numerous moles Rash Postphlebitic leg ulcer History of deep venous thrombosis (DVT) of distal vein of right lower extremity Dyslipidemia Essential hypertension Surgical History History of hernia repair History of wisdom tooth extraction Hx of valvuloplasty Family History Father Hypertension Rheumatoid arthritis Mother Hypertension Diabetes Maternal Grandmother Hypertension Diabetes Mental health disorder Paternal Grandmother Mental health disorder Maternal Grandfather Lung cancer Paternal Aunt Lupus (systemic lupus erythematosus) Social History Household Members: Family Housing: House Alcohol intake: current Comment: 2 glasses of wine per day Patient Tobacco Use Status: Former Tobacco user Tobacco use type: Cigarette Years Smoked: 14 years e-Cigarette/Vaping Use: Former Use Second Hand Smoke Exposure: No Substance Use Type: Former Substance User service: No Current occupational status: unemployed 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 Cognitive needs: No Hearing needs: No Vision needs: No Questionnaire Thrive Questionnaire Date Thrive assessed: 11/22/24 I am a: Patient What is your living situation today?: I have a steady place to live Within the past 12 months, did the food you bought not last and you didn't have the money to get more?: Never true Within the past 12 months, did you worry whether your food would run out before you got money to buy more?: Never true Do you have trouble paying for medicines?: No Do you have trouble getting transportation to medical appointments?: No Do you have trouble paying your heating and electricity bill?: No Do you have trouble taking care of your child, family member or friend?: No Do you have trouble with day-to-day activities such as bathing, preparing meals, shopping, managing finances, etc.?: No Are you currently unemployed and looking for a job?: Yes Are you interested in more education?: Yes Please select the resources that you would like help with: None Currently or been in a relationship where the following occur: No concerns reported THRIVE Score: 0 AUDIT C Alcohol Use Questionnaire (AUDIT-C) 1. How often do you have a drink containing alcohol?: Never (quit 02/26/2025) 3. How often do you have six or more drinks on one occasion?: Never Total Score: 0 MOOKIE-7 AMB Questionnaire MOOKIE-7 Date MOOKIE - 7 assessed: 11/22/24 Source: Developed by Drs. Tee Aden, Perla Miranda, Haja Charles and colleagues, with an educational july from [employer]. Physical exam (Primary Care) Tobacco/Smoking Status: Tobacco use Status Tobacco use date assessed 04/03/25 04/03/25 11:15 Patient Tobacco Use Status Former Tobacco user 04/03/25 11:15 Tobacco use type Cigarette 04/03/25 11:15 e-Cigarette/Vaping Use Former Use 04/03/25 11:15 Thrive Assessment: Date of Thrive Assessment Date Thrive assessed 11/22/24 04/03/25 11:15 Currently or been in a relationship where the following occur: No concerns reported Const Orientation/consciousness: patient oriented x3 HENMT Ears: hearing grossly normal bilaterally Neck Thyroid: Thyroid normal Lymphatic: no lymphadenopathy noted Resp Auscultation: clear to auscultation bilaterally Cardio Rate: regular rate Rhythm: regular rhythm Heart sounds: S1 normal heart sound present and S2 normal heart sound present GI Inspection: Yes normal to inspection Palpation (GI): Soft to palpation and Other GI palpation findings present (nontender, no cva tenderness) Auscultation: normoactive bowel sounds Rectal Exam - Female: deferred Skin Other: 2cm x 1 cm scab on the right medial ankle, chronic skin changes noted General skin exam: no rashes or lesions noted Neuro General: patient oriented x3, gait normal and no focal motor deficits Results Reviewed Results Reviewed: Laboratory Tests 02/21/25 05/14/25 11:37 10:14 WBC 4.6 L 5.1 RBC 4.48 4.44 Hgb 13.2 12.7 Hct 35.9 L 37.4 Plt Count 176 192 D Sodium 139 Potassium 3.7 Chloride 106 Carbon Dioxide 26 Anion Gap 11 L BUN 12 Creatinine 1.10 0.99 Estimated GFR 54 > 60 Random Glucose 85 Fasting Glucose 97 Calcium 9.4 9.2 D Total Bilirubin 1.2 H AST 26 ALT 20 Alkaline Phosphatase 22 L Coding Level of Care Code Est Pt Level 4 (78741) Complex EM visit Add On G2211 Diagnoses Essential hypertension I10 Peripheral vascular disease I73.9 Ulcer of right lower extremity, unspecified ulcer stage L97.919 Laterality: right Non-pressure ulcer stage: unspecified non-pressure ulcer stage Assessment & Plan Assessment & Plan (1) Essential hypertension: Code(s): I10 - Essential (primary) hypertension Category: Medical Plan: continue current plan (2) Peripheral vascular disease: Comment: Status post stent to right common iliac vein Code(s): I73.9 - Peripheral vascular disease, unspecified Category: Medical Plan[place] [facility] [place]3) Lower extremity ulceration: Code(s): L97.909 - Non-pressure chronic ulcer of unspecified part of unspecified lower leg with unspecified severity Category: Medical Qualifiers: Laterality: right Non-pressure ulcer stage: unspecified non-pressure ulcer stage Qualified Code(s): L97.919 - Non-pressure chronic ulcer of unspecified part of right lower leg with unspecified severity Plan: as above, somewhat healing Orders: Referrals Vascular Surgery Referral I73.9 - Peripheral vascular disease, unspecified, L97.919 - Non-pressure chronic ulcer of unspecified part of right lower leg with unspecified severity, Z86.718 - Personal history of other venous thrombosis and embolism Patient Instructions: [phone][place] [facility] [place]
[2025-05-16 13:15] VITALS: BP 138/102; PULSE 73; RESP 12; TEMP 37.1; O2SAT 99; BMI 23.5
[2025-05-16 13:18] VITALS: BP 124/90
--- OUTSIDE RECORDS SUMMARY | 2025-05-16 16:16 | XMS_ITS | Data Portability ---
Author Organization [place] - [facility], Allergy Address [address] [address] Care Team Providers [employer] Account Executive Name Role Phone EUNICE WATERS Referring Provider Assessment Encounter Date Assessment Date Assessment LastModified by Organization Details LastModified Time 05/01/2025 05/01/2025 The patient has symptoms and exam findings consistent with chronic nasal obstruction. On examination the patient has a noted septal deviation as well as bilateral inferior turbinate hypertrophy, which is the likely cause of their symptoms. I spoke with him about future options including continued medical management versus potential surgical intervention with septoplasty and bilateral inferior turbinate reduction. We shall try the medication trial first to see if they get improvement. If this fails would consider surgery. - Start nasal steroids daily for 6 to 8 weeks. - Continue azelastine and saline rinses as she has been doing prior. - RV in 6 weeks to discuss potential septoplasty and turbinate reduction [email or web address] Not available 05/01/2025 14:35:01 Plan of Treatment Reminders Order Date Submit Date Provider Last Modified By Organization Details Last Modified Time Details Appointments Establis hed 15 2024 01:15P Nisha Roberts, DO Not available Not available Not available Lab None recorded . Referral None recorded . Procedures None recorded . Surgeries None recorded . Imaging None recorded . Medication Orders fluticas one propiona te 50 mcg/actu ation nasal spray,early spension 2024 025 [email or web address] Not available 05/01/2025 14:35:01 Patient TargetsNo targets recorded. Patient InstructionsNo instructions recorded. Reason for Referral None Reported. Problems Name Problem SNOMED Code Status Onset Date Resolution Date Notes Provider Name and Address Organization Details Recorded Time Ulcerativ e rhinitis 49596363 Active 2022 Nasal mucositis (ulcerativ e); Note: Date Diagnosed: 06/04/2023 10:49 AM (J34.81) Not Available [facility] 4 02:27:49 Chronic rhinitis 35344116 Active 2022 Chronic rhinitis; Note: Date Diagnosed: 06/04/2023 10:49 AM (J31.0) Mau Roberts, DO [address] [facility],[address], [place], [address] , [facility] - [facility] 12:45:35 Posterior rhinorrhe a 94491443 Active 2022 Postnasal drip; Note: Date Diagnosed: 06/04/2023 10:49 AM (R09.82) Not Available [facility] 02:27:55 Chronic sinusitis 34574496 Active 2024 Mau Roberts, DO 100 [facility],[address], [place], [address] , [facility] - [facility] 12:45:35 Deviated nasal septum 213933906 Active 2024 Mau Roberts, DO 100 [facility] [address], [place], [address] , [facility] - [facility] 14:34:50 Hypertrop hy of nasal turbinate s 83070228 Active 2024 Mau Roberts, DO 100 [facility] [address], [place], [address] , [facility] - [facility] 14:34:52 Problem Notes None recorded. Medical Equipment None Reported. Medications Name Sig Start Date Stop Date Status Note LastModified by Organization Details LastModified Time atorvasta tin 20 mg tablet TAKE 1 TABLET ORALLY DAILY active Not Available Not Available No t Available lidocaine 4 % topical patch APPLY 1 PATCH TOPICALL Y DAILY NEEDED FOR PAIN active Not Available Not Available No t Available valacyclo vir 1 gram tablet TAKE 1 TABLET BY MOUTH EVERY 8 HOURS FOR 7 DAYS active Not Available Not Available No t Available aspirin 81 mg tablet,de layed release TAKE 1 TABLET BY MOUTH EVERY DAY active Not Available Not Available No t Available spironola ctone 25 mg tablet TAKE 1 TABLET BY MOUTH DAILY active Not Available Not Available No t Available amlodipin e 10 mg tablet TAKE 1 TABLET BY MOUTH DAILY active Not Available Not Available No t Available cephalexi n 500 mg capsule TAKE 1 CAPSULE BY MOUTH 4 TIMES A DAY active Not Available Not Available No t Available hydroxyzi ne HCl 25 mg tablet TAKE 1 TABLET BY MOUTH TWICE A DAY NEEDED FOR ANXIETY active Not Available Not Available No t Available hydrochlo rothiazid e 25 mg tablet TAKE 1 TABLET BY MOUTH EVERY MORNING active Not Available Not Available No t Available gabapenti n 100 mg capsule TAKE 1 CAPSULE ORALLY 3 TIMES A DAY NEEDED FOR PAIN FOR 7 DAYS active Not Available Not Available No t Available azelastin e 137 mcg (0.1 %) nasal spray INSTILL 1 SPRAY IN EACH NOSTRIL TWICE DAILY active Not Available Not Available No t Available fluticaso ne propionat e 50 mcg/actua tion nasal spray,karlie pension [place] 2 sprays every day by intranas al route for 30 days. 2024 active Not Available Not Available Not Avai lable spironola ctone 50 mg tablet TAKE 1 TABLET BY MOUTH EVERY DAY active Not Available Not Available No t Available escitalop joey 5 mg tablet TAKE 1 TABLET BY MOUTH DAILY active Not Available Not Available No t Available metoprolo l tartrate 25 mg tablet 05/01 completed Medicati on ID: [id number] B rand Name: metoprol ol tartrate Send Method: E-Prescr ibed Sub s Allowed: subs OK Medic ationGen ericName : metoprol ol tartrate Not Available Not Available Not Available levocetir izine 5 mg tablet TAKE 1 TABLET BY MOUTH EVERY EVENING active Not Available Not Available No t Available Vitals None Recorded Social History None recorded. Functional Status None recorded. Mental Status None recorded. Family History Nothing Reported. Medical History No medical history recorded. Gynecological HistoryNo gynecological history recorded. Obstetrics History GPAL:G 0 P 0 0 0 0 Past Encounters Encounter ID Performer Location Encounter Start Date Encounter Closed Date Diagnosis/Indication Diagnosis SNOMED-CT Code Diagnosis ICD10 Code Diagnosis IMO Codes Diagnosis Note [id number] Mau Roberts, DO [facility] [address] [place] [address] 05/01/2025 14:15:36 05/01/2025 14:39:47 Chronic rhinitis 47122140 J31.0 Chronic sinusitis 026355 00 J32.8 Deviated nasal septum 12 5101463 J34.2 22447 Hypertroph y of nasal turbinates 17082337 J34.3 2532 Health Concerns Section Related Observation LastModified by Organization Detai ls LastModified Time None Recorded Concern Status LastModified by Organization Details LastModified Time None Recorded Advance Directives Directive None Recorded Payers Insurance Date Sequence Insurance Name Policy Number Policy Eduardo Covered Member ID Eduardo Member ID Guarantor Name 05/08/2025 1 [facility] (MEDICAID REPLACEMENT - HMO) WILLA Rivera [id number] Carloina Rivera Notes Date Note Type Note Provider Name and Address Organization Details Recorded Time text/html ROS as noted in the HPI The patient presents today with sinus concerns. Current Symptoms: Nasal obstruction/congestion,N herber Sprays: Using Nasal Saline, Nasal Steroid, AzelastineAllergy Tx: Daily OTC AntihistaimeCourses of Antibiotics and steroids: None in 1 yearImmunotherapy Trials: None Prior Allergy Testing: yesnegative testingPrior imaging: NoneHx of Asthma: NoHx of NSAID/ASA sensitvity or immune deficiency: NoPrior Sinus Surgery: NoRecord/Referral Review: Seen on 09/30/[address] Ortega for significant nasal congestion. She has a history of prior allergy testing which was negative. The patient has used saline in the past with some improvement. Patient is currently using azelastine in the nose. Review of primary care note on 04/03/2025 by SIMON Collazo, [address] [address], [place], [address], [facility] - [facility] 05/01/2025 14:35:19 OBGyn Episode No OBEpisode recorded.
== END 2025-05-16 13:33 | disposition home or self-care (01) ==
LOC: HO.HMCFM 13:02
PROVIDERS: PCP Physician Assistant; Visit Provider Physician Assistant
DX: I10 Essential (primary) hypertension (principal); I73.9 Peripheral vascular disease, unspecified; L97.919 Non-pressure chronic ulcer of unspecified part of right lower leg with unspecified severity

== ENCOUNTER → 2025-05-16 13:01 | Outpatient (BNVA) | payer OTHER, SELFPAY | PROVIDERS: PCP Physician Assistant; Visit Provider Physician Assistant | DX: I10 Essential (primary) hypertension (principal); E78.5 Hyperlipidemia, unspecified; F41.9 Anxiety disorder, unspecified; I73.9 Peripheral vascular disease, unspecified; L97.919 Non-pressure chronic ulcer of unspecified part of right lower leg with unspecified severity; Z86.718 Personal history of other venous thrombosis and embolism | CPT/HCPCS: 99212 ==

== ENCOUNTER 2025-06-06 11:15 | Outpatient (RCR) | payer OTHER, SELFPAY | END 2025-06-06 16:53 | disposition home or self-care (01) | LOC: HO.WCC 11:15 | PROVIDERS: PCP Physician Assistant; Visit Provider Surgery Surgical Oncology | DX: I87.021 Postthrombotic syndrome with inflammation of right lower extremity (principal); M32.10 Systemic lupus erythematosus, organ or system involvement unspecified; Z87.891 Personal history of nicotine dependence | CPT/HCPCS: 99212; 99213 ==